=== PATIENT | female | born 1975 | race Hispanic/Latino ===

== ENCOUNTER 2018-05-17 13:49 | Emergency (ER) | payer SELFPAY ==
--- NOTE | 2018-05-17 14:44 | RAD REPORT ---
EXAM DESCRIPTION: CT - Head Brain Wo Cont - 05/17/2018 2:31 pm CLINICAL HISTORY: HEADACHE COMPARISON: No comparisons TECHNIQUE: All CT scans are performed using dose optimization technique as appropriate and may inclu de automated exposure control or mA/KV adjustment according to patient size. FINDINGS: No intracranial hemorrhage, hydrocephalus or extra-axial fluid collection.No areas of brai n edema or evidence of midline shift. The paranasal sinuses and mastoids are clear. The calvarium is intact. IMPRESSION: No acute intracranial abnormality.
[2018-05-17] MEDS ORDERED: METOCLOPRAMIDE 10 MG/2mL INJ ONE (15:58)
[2018-05-17] MEDS ORDERED: NA CHLORIDE 0.9% 1,000 ML ONE (15:59)
[2018-05-17] MEDS ORDERED: KETOROLAC 30 MG/ML INJ ONE (15:59)
--- NOTE | 2018-05-17 17:06 | ER ---
Nurse's Notes [facility] Name: Chio Still Age: 42 yrs Sex: Female : 1975 Arrival Date: 05/17/2018 Time: 13:53 Bed 15 Private MD: None, None Diagnosis: Headache Presentation: 05/17 14:16 Presenting complaint: Patient states: headache that began yesterday. Pt denies nausea aa5 and vomiting, reports dizziness. Pt also c/o swelling to right lower eyelid that began today. Transition of care: patient was not received from another setting of care. Onset of symptoms was May 2018. Risk Assessment: Do you want to hurt yourself or someone else? Patient reports no desire to harm self or others. Initial Sepsis Screen: Does the patient meet any 2 criteria? No. Patient's initial sepsis screen is negative. Does the patient have a suspected source of infection? No. Patient's initial sepsis screen is negative. Care prior to arrival: None. 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 - Social history:: Smoking status: Patient/guardian denies using tobacco. - Ebola Screening: : No symptoms or risks identified at this time. - Family history:: not pertinent. - Hospitalizations: : No recent hospitalization is reported. Screenin:05 Abuse screen: Denies threats or abuse. Denies injuries from another. Nutritional sv screening: No deficits noted. Tuberculosis screening: No symptoms or risk factors identified. Fall Risk None identified. Assessment: 16:05 General: Appears in no apparent distress. uncomfortable, well developed, Behavior is sv calm, cooperative, appropriate for age. Pain: Complains of pain in occipital area and base of the skull Pain currently is 6 out of 10 on a pain scale. Is continuous. Neuro: Level of Consciousness is awake, alert, obeys commands, Oriented to person, place, time, situation, Moves all extremities. Full function Gait is steady, Speech is normal, Reports headache occipital area. Respiratory: Respiratory effort is even, unlabored, Respiratory pattern is regular, symmetrical. Derm: Skin is pink, warm \T\ dry. 17:28 Reassessment: Patient appears in no apparent distress at this time. Patient and/or sv family updated on plan of care and expected duration. Pain level reassessed. Patient is alert, oriented x 3, equal unlabored respirations, skin warm/dry/pink. Patient denies pain at this time. Patient states feeling better. Patient states symptoms have improved. Vital Signs: 14:18 BP 124 / 89; Pulse 75; Resp 16 S; Temp 98.4(TE); Pulse Ox 100% on R/A; Weight 77.11 kg aa5 (R); Height 5 ft. 2 in. (157.48 cm) (R); Pain 6/10; 16:15 BP 124 / 87; Pulse 82; Resp 16; Pulse Ox 99% ; Pain 0/10; sv 14:18 Body Mass Index 31.09 (77.11 kg, 157.48 cm) aa5 Larisa Coma Score: 17:03 Eye Response: spontaneous(4). Verbal Response: oriented(5). Motor Response: obeys rn commands(6). Total: 15. ED Course: 13:53 Patient arrived in ED. sb2 13:53 None, None is Private Physician. sb2 14:17 Triage completed. aa5 14:17 Arm band placed on. aa5 14:31 CT Head Brain wo Cont In Process Unspecified. EDMS 15:29 Argentina Chou, DHARMESH is Primary Nurse. sv 15:38 Dayton Nogueira MD is Attending Physician. rn 16:05 Patient has correct armband on for positive identification. Bed in low position. Pulse sv ox on. NIBP on. Door closed. Lights dimmed. Warm blanket given. Head of bed elevated. 16:05 Inserted saline lock: 20 gauge in right antecubital area, using aseptic technique. sv Flushed right antecubital with 5 ml normal saline. 17:29 No provider procedures requiring assistance completed. IV discontinued, intact, sv bleeding controlled, No redness/swelling at site. Pressure dressing applied. Administered Medications: 16:05 Drug: NS 0.9% 1000 ml Route: IV; Rate: 1000 ml; Site: right antecubital; sv 17:25 Follow up: Response: No adverse reaction; IV Status: Completed infusion; IV Intake: sv 800ml 16:05 Drug: TORadol 30 mg Route: IVP; Site: right antecubital; sv 16:30 Follow up: Response: No adverse reaction sv 16:07 Drug: Reglan 10 mg Route: IVP; Site: right antecubital; sv 16:30 Follow up: Response: No adverse reaction sv Intake: 17:25 IV: 800ml; Total: 800ml. sv Outcome: 17:05 Discharge ordered by . rn 17:29 Discharged to home ambulatory, with family. sv 17:29 Condition: stable 17:29 Discharge instructions given to patient, Instructed on discharge instructions, follow up and referral plans. Demonstrated understanding of instructions, follow-up care. 17:29 Patient left the ED. sv Signatures: Dispatcher [employer] Argentina Cm RN RN sv Dayton Nogueira MD MD rn Calderon, Audri, RN RN aa5 Joanne Ramirez2 Corrections: (The following items were deleted from the chart) 18:08 16:15 BP 124 / 87; Pulse 82bpm; Resp 16bpm; Pulse Ox 99%; sv sv
--- NOTE | 2018-05-17 17:06 | EDPHYS ---
Physician Documentation [facility] Name: Chio Still Age: 42 yrs Sex: Female : 1975 Arrival Date: 05/17/2018 Time: 13:53 Bed 15 Private MD: None, None ED Physician Dayton Nogueira HPI: 05/17 16:20 This 42 yrs old Female presents to ER via Ambulatory with complaints of rn Headache. 16:20 The patient complains of pain to the right frontal area and right temporal area. The rn patient describes the headache as aching. 16:22 Onset: The symptoms/episode began/occurred yesterday. Severity of symptoms: At its rn worst the pain was moderate, in the emergency department the pain is unchanged. The patient has not experienced similar symptoms in the past. Reports right sided headache, began yesterday, no fever, no trauma, no vomiting, no vision changes, reports has high blood pressure and her pressure has been high. . 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 - Social history:: Smoking status: Patient/guardian denies using tobacco. - Ebola Screening: : No symptoms or risks identified at this time. - Family history:: not pertinent. - Hospitalizations: : No recent hospitalization is reported. ROS: 16:22 Constitutional: Negative for fever, chills, and weight loss, Eyes: Negative for injury, rn pain, redness, and discharge, Neck: Negative for injury, pain, and swelling, Cardiovascular: Negative for chest pain, palpitations, and edema, Respiratory: Negative for shortness of breath, cough, wheezing, and pleuritic chest pain, Abdomen/GI: Negative for abdominal pain, nausea, vomiting, diarrhea, and constipation, MS/Extremity: Negative for injury and deformity, Skin: Negative for injury, rash, and discoloration, Neuro: Negative for weakness, numbness, tingling, and seizure. Exam: 16:22 Constitutional: This is a well developed, well nourished patient who is awake, alert, rn and in no acute distress. Head/Face: Normocephalic, atraumatic. Eyes: Pupils equal round and reactive to light, extra-ocular motions intact. Lids and lashes normal. Conjunctiva and sclera are non-icteric and not injected. Cornea within normal limits. Periorbital areas with no redness, or edema. ENT: Nares patent. No nasal discharge, no septal abnormalities noted. Oropharynx with no redness, swelling, or masses, exudates, or evidence of obstruction, uvula midline. Mucous membranes moist. Neck: Trachea midline, no thyromegaly or masses palpated, and no cervical lymphadenopathy. Supple, full range of motion without nuchal rigidity, or vertebral point tenderness. No Meningismus. Skin: Warm, dry with normal turgor. Normal color with no rashes, no lesions, and no evidence of cellulitis. Neuro: Awake and alert, GCS 15, oriented to person, place, time, and situation. Cranial nerves II-XII grossly intact. Motor strength 5/5 in all extremities. Sensory grossly intact. Cerebellar exam normal. Normal gait. Vital Signs: 14:18 BP 124 / 89; Pulse 75; Resp 16 S; Temp 98.4(TE); Pulse Ox 100% on R/A; Weight 77.11 kg aa5 (R); Height 5 ft. 2 in. (157.48 cm) (R); Pain 6/10; 16:15 BP 124 / 87; Pulse 82; Resp 16; Pulse Ox 99% ; Pain 0/10; sv 14:18 Body Mass Index 31.09 (77.11 kg, 157.48 cm) aa5 Perryman Coma Score: 17:03 Eye Response: spontaneous(4). Verbal Response: oriented(5). Motor Response: obeys rn commands(6). Total: 15. MDM: 15:39 Patient medically screened. rn 17:03 Differential diagnosis: hypertensive headache, migraine, tension headache, vasomotor rn headache. Data reviewed: vital signs, nurses notes, radiologic studies, CT scan, and as a result, I will discharge patient. Counseling: I had a detailed discussion with the patient and/or guardian regarding: the historical points, exam findings, and any diagnostic results supporting the discharge/admit diagnosis, radiology results, the need for outpatient follow up, to return to the emergency department if symptoms worsen or persist or if there are any questions or concerns that arise at home. Special discussion: I discussed with the patient/guardian in detail that at this point there is no indication for admission to the hospital. It is understood, however, that if the symptoms persist or worsen the patient needs to return immediately for re-evaluation. ED course: Patient back to baseline, smiling, negative CT head. . 05/17 14:19 Order name: CT Head Brain wo Cont; Complete Time: 15:39 aa5 05/17 15:44 Order name: IV Start; Complete Time: 16:12 rn Administered Medications: 16:05 Drug: NS 0.9% 1000 ml Route: IV; Rate: 1000 ml; Site: right antecubital; sv 17:25 Follow up: Response: No adverse reaction; IV Status: Completed infusion; IV Intake: sv 800ml 16:05 Drug: TORadol 30 mg Route: IVP; Site: right antecubital; sv 16:30 Follow up: Response: No adverse reaction sv 16:07 Drug: Reglan 10 mg Route: IVP; Site: right antecubital; sv 16:30 Follow up: Response: No adverse reaction sv Disposition: 05/17/18 17:05 Discharged to Home. Impression: Headache. - Condition is Stable. - Discharge Instructions: General Headache Without Cause, Migraine Headache. - Family Work Release, Medication Reconciliation Form, Thank You Letter, Antibiotic Education, Prescription Opioid Use form. - Follow up: Private Physician; When: As needed; Reason: Recheck today's complaints, Re-evaluation by your physician. - Problem is new. - Symptoms have improved. Signatures: Dispatcher [employer] EDArgentina Riojas RN RN sv Dayton Nogueira MD MD rn Calderon, Audri, RN RN aa5 Corrections: (The following items were deleted from the chart) 17:29 17:05 05/17/2018 17:05 Discharged to Home. Impression: Headache. Condition is Stable. sv Forms are Medication Reconciliation Form, Thank You Letter, Antibiotic Education, Prescription Opioid Use. Follow up: Private Physician; When: As needed; Reason: Recheck today's complaints, Re-evaluation by your physician. Problem is new. Symptoms have improved. rn
[2018-05-17 23:08] VITALS: TEMP 98.4
[2018-05-17 23:09] VITALS: BP 124/87; O2SAT 99
== END 2018-05-17 17:29 | disposition home or self-care (01) ==
LOC: ER 13:49
DX: R51 Headache (principal); I10 Essential (primary) hypertension; Z79.899 Other long term (current) drug therapy
CPT/HCPCS: 70450; 96361; 96374; 96375; 99284; J2765; J7030

== ENCOUNTER 2018-08-13 13:05 | Emergency (ER) | payer SELFPAY ==
--- OUTSIDE RECORDS SUMMARY | 2018-08-13 13:08 | XMS REPORT ---
:1975 [facility] Address [address] [place] [address] Care Team Providers Name Role Phone Unavailable Unavailable Unavailable Problems This patient has no known problems. Allergies, Adverse Reactions, Alerts This patient has no known allergies or adverse reactions. Medications This patient has no known medications. Results Test Description Test Time Test Comments Text Results Atomic Results Result Comments SCR MAMM BILATERAL CAD 2018-06-10 15:53:27 - SCR MAMM BILATERAL CAD DIGITAL DIGITALBILATERAL DIGITAL SCREENING MAMMOGRAM WITH CAD: 06/04/2018CLINICAL: Asymptomatic. Current mammographic images were evaluated by either a [employer] M-Vu or a [employer] ImageChecker CAD (computer aided detection system). No prior exams were available for comparison. The tissue of both breasts is heterogeneously dense. This may lower the sensitivity of mammography. No suspicious mass, architectural distortion, malignant type calcification, or lymph node abnormality detected. IMPRESSION: NEGATIVEThere is no mammographic evidence of malignancy. Resume annual screening mammography in one year. Meliton monzon/ymra:06/10/2018 15:53:27 Digital Strategist Senior Manager: Le Salgado MM, [facility] Mammographyletter sent: BIRADS 1-2 Normal Mammogram BI-RADS: 1 Negative
[2018-08-13] MEDS ORDERED: MECLIZINE HCL 12.5 MG TAB ONE (14:17)
[2018-08-13 14:24] LABS: Absolute Lymphocytes (CBC) 3.2 K/uL (0.7-4.9); Absolute Monocytes 0.6 K/uL (0.1-1.3); Basophils % 0.5 % (0-1.3); Eosinophils % 1.6 % (0-4.4); Hematocrit 39.2 % (36.0-45.0); Lymphocytes % 29.3 % (15.3-44.8); MPV 8.7 fL (7.6-11.3); Monocytes % 5.3 % (3.3-12.3); RBC Red Blood Cell Count 4.58 M/uL (3.86-4.86)
[2018-08-13 14:25] LABS: Protime INR 1.07
[2018-08-13 14:44] LABS: ALT/SGPT 18 U/L (12-78); AST/SGOT 13 U/L (15-37); Albumin 3.7 g/dL (3.4-5.0); Alkaline Phosphatase 80 U/L (45-117); BUN Blood Urea Nitrogen 14 mg/dL (7-18); Bicarbonate 27 mmol/L (21-32); Bilirubin Direct < 0.1 mg/dL (0-0.2); Bilirubin Total 0.3 mg/dL (0.2-1.0); Glucose Level 95 mg/dL (74-106); NT PRO-BNP 13 pg/mL (<125); Potassium 3.7 mmol/L (3.5-5.1); Protein, Total 7.5 g/dL (6.4-8.2); Sodium Level 139 mmol/L (136-145); Troponin (Emerg Dept Use Only) < 0.02 ng/mL (0.0-0.045)
--- NOTE | 2018-08-13 14:45 | RAD REPORT ---
EXAM DESCRIPTION: CT - Head Brain Wo Cont - 08/13/2018 2:26 pm CLINICAL HISTORY: Dizziness and visual disturbance COMPARISON: May 2018 TECHNIQUE: Computed axial tomography of the head was obtained. IV contrast was not requested. All CT scans are performed using dose optimization technique as appropriate and may include automated exposure control or mA/KV adjustment according to patient size. FINDINGS: An intracranial bleed is not seen . The ventricles are normal in caliber. No extra-axial fluid collection is noted. Fluid within the sinuses/ mastoids is not seen. IMPRESSION: No acute intracranial abnormality is seen. If patient's symptoms persist MRI of the bra in would be recommended.
[2018-08-13] MEDS ORDERED: NA CHLORIDE 0.9% 500 ML ONE (15:13)
[2018-08-13] MEDS ORDERED: DIPHENHYDRAMINE 50 MG/ML VIAL ONE (15:13)
[2018-08-13] MEDS ORDERED: METOCLOPRAMIDE 10 MG/2mL INJ ONE (15:13)
[2018-08-13] MEDS ORDERED: DIAZEPAM 10 MG/2 ML INJ SYRINGE ONE (15:14)
--- NOTE | 2018-08-13 15:27 | RAD REPORT ---
EXAM DESCRIPTION: CT - Head angio - 08/13/2018 3:12 pm CLINICAL HISTORY: Hypertension, dizziness, stroke-like symptoms TECHNIQUE: During dynamic enhancement using nonionic IV contrast, axial 1 millimeter thick images of the head were obtained. Sagittal and axial reconstruction images were generated and reviewed. Guillen l and sagittal reformations imaging performed using maximum intensity projection protocol. All CT scans are performed using dose optimization technique as appropriate and may include automated exposure control or mA/KV adjustment according to patient size. FINDINGS: No aneurysm or vascular malformation identified.Major venous sinuses are patent. No stenosis, named branch occlusion, vasculitis or other significant vascular finding identifiable. IMPRESSION: Negative CT angio head examination.
--- NOTE | 2018-08-13 15:29 | RAD REPORT ---
EXAM DESCRIPTION: CT - Neck Angio - 08/13/2018 3:13 pm CLINICAL HISTORY: Hypertension, dizziness, stroke-like symptoms TECHNIQUE: During dynamic enhancement using nonionic IV contrast, axial 2 mm thick images of the nec k were obtained. Sagittal and axial reconstruction images were generated and reviewed. Sagittal and c oronal reformatted images were generated using maximum intensity projection protocol. All CT scans are performed using dose optimization technique as appropriate and may include automated exposure control or mA/KV adjustment according to patient size. COMPARISON: CT head same date FINDINGS: No aneurysm or vascular malformation identified. No carotid or vertebral dissection. No aortic arch or great vessel origin abnormality seen. Vertebral artery origins unremarkable as well . No stenosis, vasculitis or other significant carotid artery finding. No focal abnormality of either vertebral artery. Basilar artery is normal. IMPRESSION: Negative CT angio neck examination.
--- NOTE | 2018-08-13 16:33 | EDPHYS ---
Physician Documentation [facility] Name: Chio Still Age: 43 yrs Sex: Female : 1975 Arrival Date: 08/13/2018 Time: 13:06 Bed 18 Private MD: Unknown, Unknown ED Physician Heber Melissa HPI: 08/13 14:08 This 43 yrs old Female presents to ER via Ambulatory with complaints of jr8 Dizziness, Blurred Vision. 14:08 The patient presents with dizziness, feeling off balance. Onset: The symptoms/episode jr8 began/occurred gradually, 4 day(s) ago. Context: occurred at home, occurred while the patient was at rest, just prior to the episode the patient experienced no apparent symptoms. Modifying factors: The symptoms are alleviated by nothing, the symptoms are aggravated by standing up, changing position. Associated signs and symptoms: Pertinent positives: blurred vision, headache, nausea. Severity of symptoms: At their worst the symptoms were moderate in the emergency department the symptoms are unchanged. Patient's baseline: Neuro: alert and fully oriented, Motor: no deficits, Ambulation: walks without assistance, Speech: normal. The patient has not experienced similar symptoms in the past. The patient has not recently seen a physician. 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 - Social history:: Smoking status: Patient/guardian denies using tobacco, Patient/guardian denies using alcohol. - Ebola Screening: : Patient negative for fever greater than or equal to 101.5 degrees Fahrenheit, and additional compatible Ebola Virus Disease symptoms Patient denies exposure to infectious person Patient denies travel to an Ebola-affected area in the 21 days before illness onset. ROS: 14:11 Eyes: Negative for injury, pain, redness, and discharge, ENT: Negative for injury, jr8 pain, and discharge, Neck: Negative for injury, pain, and swelling, Cardiovascular: Negative for chest pain, palpitations, and edema, Respiratory: Negative for shortness of breath, cough, wheezing, and pleuritic chest pain, Abdomen/GI: Negative for abdominal pain, nausea, vomiting, diarrhea, and constipation, Back: Negative for injury and pain, MS/Extremity: Negative for injury and deformity, Skin: Negative for injury, rash, and discoloration. 14:11 Neuro: Positive for dizziness, gait disturbance, headache, visual changes. Exam: 14:11 Eyes: Pupils equal round and reactive to light, extra-ocular motions intact. Lids and jr8 lashes normal. Conjunctiva and sclera are non-icteric and not injected. Cornea within normal limits. Periorbital areas with no swelling, redness, or edema. ENT: Nares patent. No nasal discharge, no septal abnormalities noted. Tympanic membranes are normal and external auditory canals are clear. Oropharynx with no redness, swelling, or masses, exudates, or evidence of obstruction, uvula midline. Mucous membranes moist. Neck: Trachea midline, no thyromegaly or masses palpated, and no cervical lymphadenopathy. Supple, full range of motion without nuchal rigidity, or vertebral point tenderness. No Meningismus. Cardiovascular: Regular rate and rhythm with a normal S1 and S2. No gallops, murmurs, or rubs. Normal PMI, no JVD. No pulse deficits. Respiratory: Lungs have equal breath sounds bilaterally, clear to auscultation and percussion. No rales, rhonchi or wheezes noted. No increased work of breathing, no retractions or nasal flaring. Abdomen/GI: Soft, non-tender, with normal bowel sounds. No distension or tympany. No guarding or rebound. No evidence of tenderness throughout. Back: No spinal tenderness. No costovertebral tenderness. Full range of motion. Skin: Warm, dry with normal turgor. Normal color with no rashes, no lesions, and no evidence of cellulitis. MS/ Extremity: Pulses equal, no cyanosis. Neurovascular intact. Full, normal range of motion. 14:11 ECG was reviewed by the Attending Physician. 14:11 Neuro: Orientation: to person, place, time \T\ situation. Mentation: is normal, Memory: is normal, immediate memory is intact, recent memory is intact, remote memory is intact, Cranial nerves: CN I not tested, CN II- XII are normal as tested, visual trujillo are intact. extraocular movements are intact, Facial palsy and sensory deficits are absent. no gross hearing deficit,. Nystagmus is absent. Speech is clear and appropriate. Tongue strength is normal, Cerebellar function: Romberg testing is abnormal, drifts to right, dysmetria is noted on both sides, heel to daley testing is normal, Motor: moves all fours, strength is 5/5 in all extremities, Sensation: no obvious gross deficits, Gait: is unsteady, seizure activity, is not displayed by the patient, Abnormal movements: there are no abnormal movements, bilateral diplopia . Vital Signs: 13:22 BP 131 / 93; Pulse 81; Resp 18; Temp 98.4(O); Pulse Ox 100% on R/A; Weight 73.48 kg; hj Height 5 ft. 1 in. (154.94 cm); Pain 6/10; 14:30 BP 138 / 95; Pulse 70; Resp 18; Pulse Ox 99% on R/A; Pain 0/10; em 16:40 BP 128 / 82; Pulse 69; Resp 16; Pulse Ox 99% on R/A; Pain 0/10; em 13:22 Body Mass Index 30.61 (73.48 kg, 154.94 cm) hj MDM: 13:55 Patient medically screened. jr8 16:31 Data reviewed: vital signs, nurses notes, lab test result(s), EKG, radiologic studies, [facility] CT scan, plain films, and as a result, I will discharge patient. Data interpreted: Pulse oximetry: on room air is 100 %. Interpretation: normal. Counseling: I had a detailed discussion with the patient and/or guardian regarding: the historical points, exam findings, and any diagnostic results supporting the discharge/admit diagnosis, lab results, radiology results, the need for outpatient follow up, a neurologist, to return to the emergency department if symptoms worsen or persist or if there are any questions or concerns that arise at home. Response to treatment: the patient's symptoms have markedly improved after treatment. 08/13 13:41 Order name: Urine Dipstick--Ancillary (enter results) eb 08/13 13:41 Order name: Urine --Ancillary (enter results) 08/13 13:57 Order name: Basic Metabolic Panel; Complete Time: 14:49 jr8 08/13 13:57 Order name: CBC with Diff; Complete Time: 14:40 jr8 04/05 13:57 Order name: LFT's; Complete Time: 14:49 jr8 08/13 13:57 Order name: Magnesium; Complete Time: 14:49 08/13 13:57 Order name: NT PRO-BNP; Complete Time: 14:49 08/13 13:57 Order name: PT-INR; Complete Time: 14:40 jr8 08/13 13:57 Order name: Troponin (emerg Dept Use Only); Complete Time: 14:49 jr8 08/13 13:57 Order name: CT Head Brain wo Cont; Complete Time: 14:49 jr8 08/13 14:55 Order name: CT Head Angio; Complete Time: 15:37 jr8 08/13 15:02 Order name: Neck Angio; Complete Time: 15:37 EDMS 08/13 13:57 Order name: EKG; Complete Time: 13:58 8 08/13 13:57 Order name: Cardiac monitoring; Complete Time: 14:14 08/13 13:57 Order name: EKG - Nurse/Tech; Complete Time: 14:14 08/13 13:57 Order name: IV Saline Lock; Complete Time: 14:14 jr08/13 13:57 Order name: Labs collected and sent; Complete Time: 14:14 08/13 13:57 Order name: O2 Per Protocol; Complete Time: 14:14 08/13 13:57 Order name: O2 Sat Monitoring; Complete Time: 14:14 jr EC:11 Rate is 67 beats/min. Rhythm is regular, Normal Sinus Rhythm. QRS [place] is Normal. MS jr8 interval is normal at 138 msec. QRS interval is normal at 82 msec. QT interval is normal at 424 msec. No Q waves. T waves are Normal. No ST changes noted. Clinical impression: Normal ECG. Interpreted by me. Reviewed by me. Administered Medications: 14:14 Drug: Meclizine 25 mg Route: PO; em 15:13 Follow up: Response: No adverse reaction em 15:27 Drug: Valium 2 mg Route: IVP; Site: right antecubital; hb 16:42 Follow up: Response: No adverse reaction; Pain is decreased em 15:27 Drug: Reglan 10 mg Route: IVP; Site: right antecubital; hb 16:42 Follow up: Response: No adverse reaction; Pain is decreased em 15:27 Drug: Benadryl 25 mg Route: IVP; Site: right antecubital; hb 16:42 Follow up: Response: No adverse reaction; Pain is decreased em 15:28 Drug: NS 0.9% 500 ml Route: IV; Rate: bolus; Site: right antecubital; hb 16:30 Follow up: IV Status: Completed infusion; IV Intake: 500ml em Disposition: 08/13/18 16:32 Discharged to Home. Impression: Migraine - Complex. - Condition is Stable. - Discharge Instructions: Migraine Headache. - Prescriptions for Fiorinal 50- 325-40 mg Oral Capsule - take 2 capsule by ORAL route every 8 hours As needed - not to exceed 6 capsules per day; 20 capsule. - Medication Reconciliation Form, Thank You Letter, Antibiotic Education, Prescription Opioid Use form. - Follow up: Misael Felipe MD; When: 2 - 3 days; Reason: Recheck today's complaints, Continuance of care, Re-evaluation by your physician. - Problem is new. - Symptoms have improved. Addendum: 08/16/2018 07:16 Co-signature as Attending Physician, Heber Melissa MD I agree with the assessment and k dr plan of care. Signatures: Dispatcher [employer] EDTN Heber Melissa MD MD [facility] Cristhian Chavira, PRIVATE INVESTIGATOR SURVEILLANCE PRIVATE INVESTIGATOR SURVEILLANCE Yoel Gonzáles PA PA jr8 Oziel Mane RN RN Marisabel Smith RN RN Corrections: (The following items were deleted from the chart) 08/13 14:22 14:11 Eyes: Pupils equal round and reactive to light, extra-ocular motions intact. Lids jr8 and lashes normal. Conjunctiva and sclera are non-icteric and not injected. Cornea within normal limits. Periorbital areas with no swelling, redness, or edema. ENT: Nares patent. No nasal discharge, no septal abnormalities noted. Tympanic membranes are normal and external auditory canals are clear. Oropharynx with no redness, swelling, or masses, exudates, or evidence of obstruction, uvula midline. Mucous membranes moist. Neck: Trachea midline, no thyromegaly or masses palpated, and no cervical lymphadenopathy. Supple, full range of motion without nuchal rigidity, or vertebral point tenderness. No Meningismus. Cardiovascular: Regular rate and rhythm with a normal S1 and S2. No gallops, murmurs, or rubs. Normal PMI, no JVD. No pulse deficits. Respiratory: Lungs have equal breath sounds bilaterally, clear to auscultation and percussion. No rales, rhonchi or wheezes noted. No increased work of breathing, no retractions or nasal flaring. Abdomen/GI: Soft, non-tender, with normal bowel sounds. No distension or tympany. No guarding or rebound. No evidence of tenderness throughout. Back: No spinal tenderness. No costovertebral tenderness. Full range of motion. Skin: Warm, dry with normal turgor. Normal color with no rashes, no lesions, and no evidence of cellulitis. MS/ Extremity: Pulses equal, no cyanosis. Neurovascular intact. Full, normal range of motion. jr8 14:22 14:11 Neuro: Orientation: to person, place, time \T\ situation. Mentation: is normal, jr8 Memory: is normal, immediate memory is intact, recent memory is intact, remote memory is intact, Cranial nerves: CN I not tested, CN II- XII are normal as tested, visual trujillo are intact. extraocular movements are intact, Facial palsy and sensory deficits are absent. no gross hearing deficit,. Nystagmus is absent. Speech is clear and appropriate. Tongue strength is normal, Cerebellar function: Romberg testing is abnormal, drifts to right, dysmetria is noted on both sides, heel to daley testing is normal, Motor: moves all fours, strength is 5/5 in all extremities, Sensation: no obvious gross deficits, Gait: is unsteady, seizure activity, is not displayed by the patient, Abnormal movements: there are no abnormal movements, jr8 16:59 16:32 08/13/2018 16:32 Discharged to Home. Impression: Migraine - Complex. Condition is em Stable. Forms are Medication Reconciliation Form, Thank You Letter, Antibiotic Education, Prescription Opioid Use. Follow up: Misael Felipe; When: 2 - 3 days; Reason: Recheck today's complaints, Continuance of care, Re-evaluation by your physician. Problem is new. Symptoms have improved. jr8
--- NOTE | 2018-08-13 16:33 | ER ---
Nurse's Notes [facility] Name: Chio Still Age: 43 yrs Sex: Female : 1975 Arrival Date: 08/13/2018 Time: 13:06 Bed 18 Private MD: Unknown, Unknown Diagnosis: Migraine-Complex Presentation: 08/13 13:19 Presenting complaint: Patient states: for the last 4 days i have high blood pressure; i hj got dizzy and light headed and my vision is blurry; and for days, my BP is high, last night BP- 168/129; i got BP meds; this AM; BP is 130/99; reports nausea; denies weakness, numbness in all extremities;. Transition of care: patient was not received from another setting of care. Onset of symptoms was August 13, 2018. Risk Assessment: Do you want to hurt yourself or someone else? Patient reports no desire to harm self or others. Initial Sepsis Screen: Does the patient meet any 2 criteria? No. Patient's initial sepsis screen is negative. Does the patient have a suspected source of infection? No. Patient's initial sepsis screen is negative. Care prior to arrival: None. 13:19 Method Of Arrival: Ambulatory 13:19 Acuity: INDY 3 hj Triage Assessment: 13:22 General: Appears in no apparent distress. uncomfortable, Behavior is calm, cooperative, hj appropriate for age. Pain: Complains of pain in head Pain currently is 6 out of 10 on a pain scale. 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 - Social history:: Smoking status: Patient/guardian denies using tobacco, Patient/guardian denies using alcohol. - Ebola Screening: : Patient negative for fever greater than or equal to 101.5 degrees Fahrenheit, and additional compatible Ebola Virus Disease symptoms Patient denies exposure to infectious person Patient denies travel to an Ebola-affected area in the 21 days before illness onset. Screenin:22 Abuse screen: Denies threats or abuse. Denies injuries from another. Nutritional hj screening: No deficits noted. Tuberculosis screening: No symptoms or risk factors identified. Fall Risk None identified. Assessment: 13:45 General: Appears in no apparent distress. uncomfortable, Behavior is calm, cooperative. em Pain: Complains of pain in occipital area Pain currently is 6 out of 10 on a pain scale. Pain began 2-3 days ago. Neuro: Level of Consciousness is awake, alert, obeys commands, Oriented to person, place, time, situation, Global Ceo are equal bilaterally Moves all extremities. Gait is steady, Speech is normal, Facial symmetry appears normal, Intact Reports blurred vision dizziness, headache occipital area. Cardiovascular: Heart tones S1 S2 present Capillary refill < 3 seconds Patient's skin is warm and dry. Respiratory: Airway is patent Respiratory effort is even, unlabored, Respiratory pattern is regular, symmetrical. GI: Abdomen is flat, Reports nausea, Patient currently denies vomiting. : Urine is clear. EENT: No signs and/or symptoms were reported regarding the EENT system. Derm: Skin is intact, is healthy with good turgor, Skin is pink, warm \T\ dry. Musculoskeletal: Capillary refill < 3 seconds, Range of motion: intact in all extremities. 13:50 Reassessment: I agree with previous assessment. 14:54 Reassessment: Patient appears in no apparent distress at this time. Patient and/or em family updated on plan of care and expected duration. Pain level reassessed. Patient is alert, oriented x 3, equal unlabored respirations, skin warm/dry/pink. Patient states symptoms have not improved. 16:21 Reassessment: Patient appears in no apparent distress at this time. Patient and/or em family updated on plan of care and expected duration. Pain level reassessed. Patient is alert, oriented x 3, equal unlabored respirations, skin warm/dry/pink. Patient states feeling better. Patient states symptoms have improved. Vital Signs: 13:22 BP 131 / 93; Pulse 81; Resp 18; Temp 98.4(O); Pulse Ox 100% on R/A; Weight 73.48 kg; hj Height 5 ft. 1 in. (154.94 cm); Pain 6/10; 14:30 BP 138 / 95; Pulse 70; Resp 18; Pulse Ox 99% on R/A; Pain 0/10; em 16:40 BP 128 / 82; Pulse 69; Resp 16; Pulse Ox 99% on R/A; Pain 0/10; em 13:22 Body Mass Index 30.61 (73.48 kg, 154.94 cm) hj ED Course: 13:06 Patient arrived in ED. ag5 13:08 Unknown, Unknown is Private Physician. ag5 13:21 Triage completed. hj 13:22 Arm band placed on right wrist. hj 13:23 Patient has correct armband on for positive identification. Placed in gown. Bed in low hj position. Call light in reach. Side rails up X 1. 13:35 [facility] jr8 13:35 Heber Melissa MD is Attending Physician. jr8 13:46 Cristhian Chavira LVN is Primary Nurse. em 14:16 Initial lab(s) drawn, by dc, sent to lab. Inserted saline lock: 20 gauge in right lt1 antecubital area, using aseptic technique. 14:23 CT completed. Patient tolerated procedure well. Patient moved to CT via wheelchair. Patient moved back from CT. 14:28 CT Head Brain wo Cont In Process Unspecified. EDMS 14:46 EKG done, by vibration technician. reviewed by Yoel HARTLEY. 3 15:[address] via wheelchair. 15:13 CT Head Angio In Process Unspecified. EDMS 15:13 Neck Angio In Process Unspecified. EDMS 16:32 Misael Felipe MD is Referral Physician. jr8 16:58 No provider procedures requiring assistance completed. IV discontinued, intact, em bleeding controlled, No redness/swelling at site. Pressure dressing applied. Administered Medications: 14:14 Drug: Meclizine 25 mg Route: PO; em 15:13 Follow up: Response: No adverse reaction em 15:27 Drug: Valium 2 mg Route: IVP; Site: right antecubital; hb 16:42 Follow up: Response: No adverse reaction; Pain is decreased em 15:27 Drug: Reglan 10 mg Route: IVP; Site: right antecubital; hb 16:42 Follow up: Response: No adverse reaction; Pain is decreased em 15:27 Drug: Benadryl 25 mg Route: IVP; Site: right antecubital; hb 16:42 Follow up: Response: No adverse reaction; Pain is decreased em 15:28 Drug: NS 0.9% 500 ml Route: IV; Rate: bolus; Site: right antecubital; hb 16:30 Follow up: IV Status: Completed infusion; IV Intake: 500ml em Intake: 16:30 IV: 500ml; Total: 500ml. em Outcome: 16:32 Discharge ordered by MD. shipley 16:58 Discharged to home ambulatory. em 16:58 Condition: good 16:58 Discharge instructions given to patient, Instructed on discharge instructions, follow up and referral plans. medication usage, Demonstrated understanding of instructions, follow-up care, medications, Prescriptions given X 1. 16:59 Patient left the ED. em Signatures: Dispatcher [employer] EDFaby Linder Edgar, INFORMATION SERVICES ASSISTANT INFORMATION SERVICES ASSISTANT em Yoel Gonzáles PA PA jr8 Joaquin, Henry, RN RN hj Baxter, Heather, RN RN Jolynn Fairchild 3 Amberly Ford 5 Lizet Jordan lt1 Corrections: (The following items were deleted from the chart) 13:25 13:22 Pulse 81bpm; Resp 18bpm; Pulse Ox 100% RA; Temp 98.4F Oral; 73.48 kg; Height 5 hj ft. 1 in.; BMI: 30.6; Pain 6/10; hj
[2018-08-13 17:09] VITALS: TEMP 98.4
[2018-08-13 17:12] VITALS: O2SAT 99
[2018-08-13 17:13] VITALS: BP 128/82
[2018-08-13 19:44] LABS: Urine Blood TRACE (NEG); Urine Glucose NEGATIVE (NEG); Urine Protein NEGATIVE (NEG); Urine Specific Gravity 1.015 (1.005-1.030)
== END 2018-08-13 16:59 | disposition home or self-care (01) ==
LOC: ER 13:05
DX: G43.909 Migraine, unspecified, not intractable, without status migrainosus (principal); I10 Essential (primary) hypertension
CPT/HCPCS: 36415; 70450; 70496; 70498; 80048; 80076; 81003; 81025; 83735; 83880; 84484; 85025; 85610; 93005; 96361; 96374; 96375; 99284; J2765; J3360; Q9967

== ENCOUNTER 2019-10-23 09:20 | Emergency (ER) | payer SELFPAY ==
--- OUTSIDE RECORDS SUMMARY | 2019-10-23 09:22 | XMS REPORT | Continuity of Care Document ---
:1975 Author Organization [facility] t Address [address] [place] [address] Care Team Providers Name Role Phone Unavailable Unavailable Unavailable Problems This patient has no known problems. Allergies, Adverse Reactions, Alerts This patient has no known allergies or adverse reactions. Medications This patient has no known medications. Procedures This patient has no known procedures. Results Test Description Test Time Test Comments Results Result Sour e Comments SCR MAMM 2018-06-10 - SCR MAMM BILATERAL BILATERAL CAD 15:53:27 CAD DIGITALBILATERAL DIGITAL DIGITAL SCREENING MAMMOGRAM WITH CAD: 06/04/2018CLINICAL: Asymptomatic. Current mammographic images were evaluated by either a Feast M-Vu or a The [employer] ImageChecker CAD (computer aided detection system). No prior exams were available for comparison. The tissue of both breasts is heterogeneously dense. This may lower the sensitivity of mammography. No suspicious mass, architectural distortion, malignant type calcification, or lymph node abnormality detected. IMPRESSION: NEGATIVEThere is no mammographic evidence of malignancy. Resume annual screening mammography in one year. Meliton monzon/myra:06/10/2018 15:53:27 Technology Analyst: Le Salgado MM, [facility] Mammographyletter sent: BIRADS 1-2 Normal Mammogram BI-RADS: 1 Negative
[2019-10-23] MEDS ORDERED: MORPHINE 4 MG/ML SYR ONE (10:08)
[2019-10-23] MEDS ORDERED: ONDANSETRON 4 MG/2 ML VIAL ONE (10:08)
[2019-10-23 10:11] LABS: Urine Bacteria <20 /HPF (<20); Urine RBC <5 /HPF (NONE SEEN)
[2019-10-23 10:12] LABS: Absolute Lymphocytes (CBC) 2.7 K/uL (0.7-4.9); Basophils % 0.4 % (0-1.3); Hematocrit 39.6 % (36.0-45.0); Lymphocytes % 30.7 % (15.3-44.8); RBC Red Blood Cell Count 4.61 M/uL (3.86-4.86); Urine Culture Reflex Order NOT NEEDED
[2019-10-23 10:20] LABS: ALT/SGPT 26 U/L (12-78); AST/SGOT 18 U/L (15-37); Albumin 3.7 g/dL (3.4-5.0); Alkaline Phosphatase 82 U/L (45-117); BUN Blood Urea Nitrogen 11 mg/dL (7-18); Bicarbonate 26 mmol/L (21-32); Bilirubin Direct 0.1 mg/dL (0-0.2); Bilirubin Total 0.3 mg/dL (0.2-1.0); Glucose Level 102 mg/dL (74-106); Lipase 115 U/L (73-393); Potassium 3.7 mmol/L (3.5-5.1); Protein, Total 7.7 g/dL (6.4-8.2); Sodium Level 138 mmol/L (136-145)
--- NOTE | 2019-10-23 10:40 | RAD REPORT ---
EXAM DESCRIPTION: CT - Abdomen Pelvis W Contrast - 10/23/2019 10:20 am CLINICAL HISTORY: ABD PAIN, left lower quadrant pain COMPARISON: CT ABD PELVIS W CONTRAST dated 04/18/2015; CT ABD PELVIS W CONTRAST dated 05/18/2013; CT AB D PELVIS W CONTRAST dated 02/09/2008 TECHNIQUE: Biphasic, helical CT imaging of the abdomen and pelvis was performed following 100 ml non -ionic IV contrast. No oral contrast administered. All CT scans are performed using dose optimization technique as appropriate and may include automated exposure control or mA/KV adjustment according to patient size. FINDINGS: No suspicious findings in the lung bases. The liver, spleen, and pancreas show no suspicious findings. Gallbladder is absent. Common bile duct is dilated up to 17 mm and the intrahepatic ducts are more prominent than seen on the 2015 study. The re is no evidence for pancreatic or duodenal mass. Duct stones can be occult. History indicates left lower quadrant pain. This may simply be the reservoir effect that can occur after a cholecystectomy. Symmetric renal function is seen with no hydronephrosis or suspicious renal mass. No pyelonephritis o r acute parenchymal process. No abnormality seen in the contracted urinary bladder. No adrenal abnorm alities. Uterine size is normal. Endometrium is approximately 10-11 mm in thickness. This is not abnormal if t he patient is premenopausal. An 8 millimeter cyst or low-density mass is present at the posterior mar gin of the myometrial endometrial interface. This could be a benign cyst or small hypoechoic fibroid. No right ovary abnormality. An involuting 16 millimeter left ovarian cyst is present. No gastric dilatation or wall thickening. No dilated large or small bowel. Appendix is normal. No div erticulitis seen. No active GI process identified. No free air, free fluid or inflammatory stranding. No hernia, mass or bulky lymphadenopathy. No suspicious bony findings. IMPRESSION: No colitis, diverticulitis or acute GI process identifiable. No active GI process ident ifiable. Patient has an involuting 16 millimeter left ovarian cyst. This could be a possible source of the pat ient's left lower quadrant pain. No significant uterine finding. Endometrial stripe is not outside of normal range. An [address] or low-density mass in the posterior margin of the uterus at the myometrial endometrial interface slightly more prominent. Long-term significance is doubtful. This can be re-evaluated with nonemergen t outpatient endovaginal ultrasound. Extrahepatic biliary tree is dilated to 17 mm. Patient is status post cholecystectomy. This is probab ly the reservoir affect that occurs after cholecystectomy rather than biliary obstruction. This can b e correlated with clinical presentation.
--- NOTE | 2019-10-23 11:10 | ER ---
Nurse's Notes [facility] Name: Chio Still Age: 44 yrs Sex: Female : 1975 Arrival Date: 10/23/2019 Time: 09:23 Bed 6 Private MD: Diagnosis: Unspecified ovarian cysts;Abdominal and pelvic pain Presentation: 10/22 09:38 Chief complaint: Patient states: LLQ PAIN x3 DAYS. Coronavirus screen: Proceed with bp normal triage. Ebola Screen: No symptoms or risks identified at this time. Initial Sepsis Screen: Does the patient meet any 2 criteria? No. Patient's initial sepsis screen is negative. Does the patient have a suspected source of infection? No. Patient's initial sepsis screen is negative. Risk Assessment: Do you want to hurt yourself or someone else? Patient reports no desire to harm self or others. Onset of symptoms is unknown. 09:38 Method Of Arrival: Ambulatory bp 09:38 Acuity: INDY 3 bp Triage Assessment: 09:38 General: Appears in no apparent distress. uncomfortable, Behavior is cooperative, bp appropriate for age, anxious. Pain: Complains of pain in left lower quadrant. EENT: No deficits noted. Neuro: No deficits noted. Cardiovascular: No deficits noted. Respiratory: No deficits noted. GI: Abdomen is non-distended, Patient currently denies diarrhea, nausea, vomiting. : No signs and/or symptoms were reported regarding the genitourinary system. Derm: No deficits noted. Musculoskeletal: No deficits noted. Historical: - Allergies: 10:05 No Known Allergies; bp - Home Meds: 10:05 lisinopril 10 mg oral tab 1 tab [Active]; bp - PMHx: 09:31 Hypertension; jl7 - PSHx: 09:31 Cholecystectomy; Tubal ligation; jl7 - Immunization history:: Adult Immunizations unknown. - Social history:: Smoking status: Patient denies any tobacco usage or history of. Screenin:31 Abuse screen: Denies threats or abuse. Denies injuries from another. Nutritional jl7 screening: No deficits noted. Tuberculosis screening: No symptoms or risk factors identified. 11:29 Fall Risk None identified. bp Assessment: 09:40 General: SEE TRIAGE NOTE. bp 10:06 Reassessment: CT PENDING. GI: Bowel sounds present X 4 quads. Abd is soft. bp 10:31 Reassessment: PT RETURNED FROM CT. ALL CURRENT ORDERS COMPLETED. bp 11:29 Reassessment: PT D/C HOME AMBULATORY, DX WITH OVARIAN CYST. bp Vital Signs: 09:38 BP 135 / 89; Pulse 79; Resp 16; Temp 97.4; Pulse Ox 97% ; Weight 77.11 kg; Height 5 ft. bp 1 in. (154.94 cm); 10:05 BP 142 / 91; Pulse 72; Resp 15; Pulse Ox 98% ; bp 10:31 BP 123 / 89; Pulse 76; Resp 16; Pulse Ox 97% ; bp 11:15 BP 125 / 87; Pulse 72; Resp 16; Pulse Ox 97% ; bp 09:38 Body Mass Index 32.12 (77.11 kg, 154.94 cm) bp ED Course: 09:23 Patient arrived in ED. ag5 09:24 Jose Roberto Roman MD is Attending Physician. bony 09:24 Yoel Gonzáles PA is PHCP. jr8 09:27 Keron Caban, DHARMESH is Primary Nurse. bp 09:31 Arm band placed on right wrist. jl7 09:31 Patient has correct armband on for positive identification. Placed in gown. Bed in low jl7 position. Call light in reach. Side rails up X 1. Pulse ox on. NIBP on. 09:39 Triage completed. bp 09:50 Inserted saline lock: 20 gauge in right forearm, using aseptic technique. Blood bp collected. 10:20 CT completed. Patient tolerated procedure well. Patient moved back from CT. bq 10:21 CT Abd/Pelvis - IV Contrast Only In Process Unspecified. EDMS 11:09 Cleo Acevedo MD is Referral Physician. jr8 11:20 IV discontinued, Pressure dressing applied. mh5 11:29 No provider procedures requiring assistance completed. bp 11:30 IV discontinued, intact, bleeding controlled, No redness/swelling at site. Pressure bp dressing applied. Administered Medications: 09:50 Drug: morphine 4 mg Route: IVP; Site: right forearm; bp 10:44 Follow up: Response: Pain is decreased bp 09:50 Drug: Zofran (Ondansetron) 4 mg Route: IVP; Site: right forearm; bp 10:44 Follow up: Response: No adverse reaction bp Outcome: 11:10 Discharge ordered by MD. shipley 11:29 Discharged to home ambulatory. bp 11:29 Condition: stable 11:29 Discharge instructions given to patient, Instructed on discharge instructions, follow up and referral plans. medication usage, Demonstrated understanding of instructions, follow-up care, medications, Prescriptions given X 1. 11:30 Patient left the ED. bp Signatures: Dispatcher [employer] EDMS Jose Roberto Roman MD MD cha Quilty, Betty bq Roszak, Josh, PA PA Ana Laura Decker Charlene Marie RN RN jl7 Keron Caban RN RN bp Amberly Ford ag5
--- NOTE | 2019-10-23 11:10 | EDPHYS ---
Physician Documentation [facility] Name: Chio Still Age: 44 yrs Sex: Female : 1975 Arrival Date: 10/23/2019 Time: 09:23 Bed 6 Private MD: ED Physician Jose Roberto Roman HPI: 10/22 09:44 This 44 yrs old Female presents to ER via Ambulatory with complaints of jr8 Abdominal Pain. 09:44 The patient presents with abdominal pain in the left lower quadrant, mid abdomen. jr8 Onset: The symptoms/episode began/occurred acutely, 3 day(s) ago. The symptoms do not radiate. Associated signs and symptoms: none. The symptoms are described as stabbing. Modifying factors: The symptoms are alleviated by nothing, the symptoms are aggravated by nothing. Severity of pain: At its worst the pain was moderate in the emergency department the pain is unchanged. The patient has not experienced similar symptoms in the past. The patient has not recently seen a physician. Historical: - Allergies: 10:05 No Known Allergies; bp - Home Meds: 10:05 lisinopril 10 mg oral tab 1 tab [Active]; bp - PMHx: 09:31 Hypertension; jl7 - PSHx: 09:31 Cholecystectomy; Tubal ligation; jl7 - Immunization history:: Adult Immunizations unknown. - Social history:: Smoking status: Patient denies any tobacco usage or history of. ROS: 09:44 Eyes: Negative for injury, pain, redness, and discharge, ENT: Negative for injury, jr8 pain, and discharge, Neck: Negative for injury, pain, and swelling, Cardiovascular: Negative for chest pain, palpitations, and edema, Respiratory: Negative for shortness of breath, cough, wheezing, and pleuritic chest pain, Back: Negative for injury and pain, : Negative for injury, bleeding, discharge, and swelling, MS/Extremity: Negative for injury and deformity, Skin: Negative for injury, rash, and discoloration, Neuro: Negative for headache, weakness, numbness, tingling, and seizure. 09:44 Abdomen/GI: Positive for abdominal pain, Negative for nausea, vomiting, and diarrhea, constipation, abdominal cramps, abdominal distension, anorexia, dysphagia, hematemesis, black/tarry stool, rectal pain, rectal bleeding, bowel incontinence, flatulence. Exam: 09:44 Eyes: Pupils equal round and reactive to light, extra-ocular motions intact. Lids and jr8 lashes normal. Conjunctiva and sclera are non-icteric and not injected. Cornea within normal limits. Periorbital areas with no swelling, redness, or edema. ENT: Nares patent. No nasal discharge, no septal abnormalities noted. Tympanic membranes are normal and external auditory canals are clear. Oropharynx with no redness, swelling, or masses, exudates, or evidence of obstruction, uvula midline. Mucous membranes moist. Neck: Trachea midline, no thyromegaly or masses palpated, and no cervical lymphadenopathy. Supple, full range of motion without nuchal rigidity, or vertebral point tenderness. No Meningismus. Cardiovascular: Regular rate and rhythm with a normal S1 and S2. No gallops, murmurs, or rubs. Normal PMI, no JVD. No pulse deficits. Respiratory: Lungs have equal breath sounds bilaterally, clear to auscultation and percussion. No rales, rhonchi or wheezes noted. No increased work of breathing, no retractions or nasal flaring. Back: No spinal tenderness. No costovertebral tenderness. Full range of motion. Skin: Warm, dry with normal turgor. Normal color with no rashes, no lesions, and no evidence of cellulitis. MS/ Extremity: Pulses equal, no cyanosis. Neurovascular intact. Full, normal range of motion. Neuro: Awake and alert, GCS 15, oriented to person, place, time, and situation. Cranial nerves II-XII grossly intact. Motor strength 5/5 in all extremities. Sensory grossly intact. Cerebellar exam normal. Normal gait. 09:44 Abdomen/GI: Inspection: scar(s), are noted in the umbilical area, Bowel sounds: active, all quadrants, Palpation: soft, in all quadrants, mild abdominal tenderness, in the left upper quadrant and left lower quadrant, mass, is not appreciated, rebound tenderness, is not appreciated, voluntary guarding, is not appreciated, involuntary guarding, is not appreciated, no appreciated organomegaly, Indicators: McBurney's point is not tender, Echevarria's sign is negative, Rovsing's sign is negative, Liver: tenderness, is not appreciated. Vital Signs: 09:38 BP 135 / 89; Pulse 79; Resp 16; Temp 97.4; Pulse Ox 97% ; Weight 77.11 kg; Height 5 ft. bp 1 in. (154.94 cm); 10:05 BP 142 / 91; Pulse 72; Resp 15; Pulse Ox 98% ; bp 10:31 BP 123 / 89; Pulse 76; Resp 16; Pulse Ox 97% ; bp 11:15 BP 125 / 87; Pulse 72; Resp 16; Pulse Ox 97% ; bp 09:38 Body Mass Index 32.12 (77.11 kg, 154.94 cm) bp MDM: 09:29 Patient medically screened. jr8 10:49 Data reviewed: vital signs, nurses notes, lab test result(s), radiologic studies, CT jr8 scan. Data interpreted: Pulse oximetry: on room air is 97 %. Interpretation: normal. Counseling: I had a detailed discussion with the patient and/or guardian regarding: the historical points, exam findings, and any diagnostic results supporting the discharge/admit diagnosis, lab results, radiology results, the need for outpatient follow up, an OB/Gyne specialist, to return to the emergency department if symptoms worsen or persist or if there are any questions or concerns that arise at home. Response to treatment: the patient's symptoms have markedly improved after treatment. 11:04 ED course: Vitals and labs stable and without acute finding. CT shows ovarian cyst but jr8 no other acute pathology. Pain under control. Will d/c home to f/u with OB. 10/22 09:43 Order name: Basic Metabolic Panel; Complete Time: 10:43 10/22 09:43 Order name: CBC with Diff; Complete Time: 10:43 10/22 09:43 Order name: Hepatic Function; Complete Time: 10:43 10/22 09:43 Order name: Lipase; Complete Time: 10:43 10/22 09:43 Order name: Urine Microscopic Only; Complete Time: 10:43 10/22 10:00 Order name: Urine Dipstick--Ancillary (enter results) eb 10/22 09:43 Order name: IV Saline Lock; Complete Time: 10:04 10/22 09:43 Order name: Labs collected and sent; Complete Time: 10:04 10/22 09:43 Order name: Urine Test (obtain specimen); Complete Time: 10:03 10/22 09:43 Order name: Urine Dipstick-Ancillary (obtain specimen); Complete Time: 10:03 [facility] 10/22 09:44 Order name: CT Abd/Pelvis - IV Contrast Only; Complete Time: 10:43 [facility] 10/22 10:00 Order name: Urine --Ancillary (enter results) eb Administered Medications: 09:50 Drug: morphine 4 mg Route: IVP; Site: right forearm; bp 10:44 Follow up: Response: Pain is decreased bp 09:50 Drug: Zofran (Ondansetron) 4 mg Route: IVP; Site: right forearm; bp 10:44 Follow up: Response: No adverse reaction bp Disposition: 16:57 Co-signature as Attending Physician, Jose Roberto Roman MD I agree with the assessment and bony plan of care. Disposition: 10/23/19 11:10 Discharged to Home. Impression: Unspecified ovarian cysts, Abdominal and pelvic pain. - Condition is Stable. - Discharge Instructions: Abdominal Pain, Adult, Ovarian Cyst. - Prescriptions for Ibuprofen 800 mg Oral Tablet - take 1 tablet by ORAL route every 12 hours As needed take with food; 20 tablet. - Medication Reconciliation Form, Thank You Letter, Antibiotic Education, Prescription Opioid Use form. - Follow up: Cleo Acevedo MD; When: 5 - 6 days; Reason: Recheck today's complaints, Continuance of care, Re-evaluation by your physician. - Problem is new. - Symptoms have improved. Signatures: Dispatcher [employer] EDJose Roberto Antonio MD MD cha Roszak, Josh, PA PA jr8 Charlene Bautista RN RN jl7 Keron Caban RN RN bp Corrections: (The following items were deleted from the chart) 11:30 11:10 10/23/2019 11:10 Discharged to Home. Impression: Unspecified ovarian cysts; bp Abdominal and pelvic pain. Condition is Stable. Forms are Medication Reconciliation Form, Thank You Letter, Antibiotic Education, Prescription Opioid Use. Follow up: Cleo Acevedo; When: 5 - 6 days; Reason: Recheck today's complaints, Continuance of care, Re-evaluation by your physician. Problem is new. Symptoms have improved. jr8
[2019-10-23 11:37] VITALS: TEMP 97.4
[2019-10-23 11:40] VITALS: O2SAT 97
[2019-10-23 11:41] VITALS: BP 125/87
[2019-10-23 11:56] LABS: Urine Blood 1+ (NEG); Urine Glucose NEGATIVE (NEG); Urine Protein NEGATIVE (NEG); Urine pH 5.5 (5.0-7.0)
== END 2019-10-23 11:30 | disposition home or self-care (01) ==
LOC: ER 09:20
DX: N83.209 Unspecified ovarian cyst, unspecified side (principal); I10 Essential (primary) hypertension
CPT/HCPCS: 36415; 74177; 80048; 80076; 81003; 81015; 81025; 83690; 85025; 96374; 96375; 99284; J2405; Q9967

== ENCOUNTER 2020-10-28 17:37 | Emergency (ER) | payer SELFPAY ==
--- OUTSIDE RECORDS SUMMARY | 2020-10-28 17:39 | XMS REPORT | Continuity of Care Document ---
:1975 Author Organization [facility] t Address [address] [place] [address] Care Team Providers Name Role Phone Unavailable Unavailable Unavailable Problems This patient has no known problems. Allergies, Adverse Reactions, Alerts This patient has no known allergies or adverse reactions. Medications This patient has no known medications. Procedures This patient has no known procedures. Results Test Description Test Time Test Comments Results Result Sourc e Comments SCR MAMM 2018-06-10 MAMM BILATERAL BILATERAL CAD 15:53:27 CAD DIGITALBILATERAL DIGITAL DIGITAL SCREENING MAMMOGRAM WITH CAD: 06/04/2018CLINICAL: Asymptomatic. Current mammographic images were evaluated by either a Linkpass M-Vu or a [employer] ImageChecker CAD (computer aided detection system). No prior exams were available for comparison. The tissue of both breasts is heterogeneously dense. This may lower the sensitivity of mammography. No suspicious mass, architectural distortion, malignant type calcification, or lymph node abnormality detected. IMPRESSION: NEGATIVEThere is no mammographic evidence of malignancy. Resume annual screening mammography in one year. Meliton Miller M.D. pl/penkaterina:06/10/2018 15:53:27 Horse Race Timer: Le Salgado MM, [facility] Mammographyletter sent: BIRADS 1-2 Normal Mammogram BI-RADS: 1 Negative
[2020-10-28] MEDS ORDERED: ACETAMINOPHEN 500 MG TAB ONE (19:51)
--- NOTE | 2020-10-28 20:37 | ER ---
Nurse's Notes [facility] Name: Chio Still Age: 45 yrs Sex: Female : 1975 Arrival Date: 10/28/2020 Time: 17:39 Bed 24 Private MD: Diagnosis: Ankle Sprain, Right Presentation: 10/28 17:52 Chief complaint: Patient states: "I have a swollen right ankle for 2 weeks. and as far jd3 as I know I never hurt it anyway. it is just painful and swollen.". Coronavirus screen: At this time, the client does not indicate any symptoms associated with coronavirus-19. Ebola Screen: Patient negative for fever greater than or equal to 101.5 degrees Fahrenheit, and additional compatible Ebola Virus Disease symptoms. Initial Sepsis Screen: Does the patient meet any 2 criteria? No. Patient's initial sepsis screen is negative. Does the patient have a suspected source of infection? No. Patient's initial sepsis screen is negative. Risk Assessment: Do you want to hurt yourself or someone else? Patient reports no desire to harm self or others. Onset of symptoms was October 18, 2020. 17:52 Method Of Arrival: Ambulatory j 17:52 Acuity: INDY 4 jd3 MYCOLOGIST: 17:54 LMP 10/26/2020 j Historical: - Allergies: 17:54 No Known Allergies; jd3 - Home Meds: 17:54 lisinopril 10 mg Oral tab 1 tab [Active]; jd3 - PMHx: 17:54 Hypertension; jd3 - PSHx: 17:54 Cholecystectomy; Tubal ligation; jd3 - Immunization history:: Adult Immunizations up to date. - Social history:: Smoking status: Patient denies any tobacco usage or history of. Screenin:19 Abuse screen: Denies threats or abuse. Nutritional screening: No deficits noted. em Tuberculosis screening: No symptoms or risk factors identified. Fall Risk None identified. Assessment: 19:20 General: Appears in no apparent distress. comfortable, Behavior is calm, cooperative, em appropriate for age. Pain: Complains of pain in right foot Pain currently is 7 out of 10 on a pain scale. Neuro: Level of Consciousness is awake, alert, obeys commands, Oriented to person, place, time, situation. Cardiovascular: Capillary refill < 3 seconds Patient's skin is warm and dry. Respiratory: Airway is patent Respiratory effort is even, unlabored, Respiratory pattern is regular, symmetrical. Derm: Skin is intact, is healthy with good turgor, Skin is pink, warm \\T\\ dry. Musculoskeletal: Swelling present in right foot. Vital Signs: 17:54 BP 143 / 106; Pulse 79; Resp 17 S; Temp 98.0(TE); Pulse Ox 100% on R/A; Weight 76.2 kg jd3 (R); Height 5 ft. 2 in. (157.48 cm) (R); Pain 7/10; 21:01 BP 130 / 90; Pulse 73; Resp 16; Temp 97.6(O); Pulse Ox 98% on R/A; mh5 17:54 Body Mass Index 30.73 (76.20 kg, 157.48 cm) [facility] ED Course: 17:39 Patient arrived in ED. ds1 17:53 Triage completed. jd3 17:55 Arm band placed on. d3 19:15 Cristhian Chavira, RN is Primary Nurse. em 19:16 Serge Roberts MD is Attending Physician. 7 19:19 Patient has correct armband on for positive identification. Call light in reach. Adult em w/ patient. 19:43 Ankle Right 3 View XRAY In Process Unspecified. EDMS 20:36 Thuan Tate DPM is Referral Physician. mh7 20:36 Arnaud Vega MD is Referral Physician. 7 20:59 Crutch training done. Air stirrup applied to right ankle. 5 21:05 No provider procedures requiring assistance completed. Patient did not have IV access em during this emergency room visit. Administered Medications: 19:32 Drug: Tylenol 1000 mg Route: PO; em 20:42 Follow up: Response: No adverse reaction em Outcome: 20:37 Discharge ordered by . 7 21:05 Discharged to home via wheelchair, with crutches. em 21:05 Condition: good 21:05 Discharge instructions given to patient, Instructed on discharge instructions, follow up and referral plans. medication usage, crutch walking, Demonstrated understanding of instructions, follow-up care, medications, crutch walking, Prescriptions given X 1. 21:07 Patient left the ED. em Signatures: Dispatcher [employer] EDMS Cristhian Chavira RN RN Elenita Canales ds1 Ana Laura Rubalcava 5 Tung Casas RN RN jd3 Serge Roberts MD MD 7
--- NOTE | 2020-10-28 20:37 | EDPHYS ---
Physician Documentation [facility] Name: Chio Still Age: 45 yrs Sex: Female : 1975 Arrival Date: 10/28/2020 Time: 17:39 Bed 24 Private MD: ED Physician Serge Roberts HPI: 10/28 19:26 This 45 yrs old Female presents to ER via Ambulatory with complaints of Foot mh7 Swelling. 19:26 The patient presents with pain, that is acute, swelling. The complaints affect the mh7 right ankle. Onset: The symptoms/episode began/occurred 2 week(s) ago. Context: The problem was sustained at an unknown location, resulted from an unknown cause, The mechanism of injury is unknown. The patient can fully bear weight on the affected extremity. the patient is able to ambulate, with mild difficulty. Associated signs and symptoms: Pertinent positives: swelling, Pertinent negatives: calf tenderness, fever, nausea, numbness, rash, tingling, vomiting, warmth, weakness. Modifying factors: The symptoms are alleviated by nothing, the symptoms are aggravated by weight bearing. 19:27 Severity of symptoms: At their worst the symptoms were moderate, 5 day(s) ago, in the [facility] emergency department the symptoms are unchanged. [employer]SEM[employer] PING PONG TABLE: 17:54 LMP 10/26/2020 jd3 Historical: - Allergies: 17:54 No Known Allergies; jd3 - Home Meds: 17:54 lisinopril 10 mg Oral tab 1 tab [Active]; jd3 - PMHx: 17:54 Hypertension; jd3 - PSHx: 17:54 Cholecystectomy; Tubal ligation; jd3 - Immunization history:: Adult Immunizations up to date. - Social history:: Smoking status: Patient denies any tobacco usage or history of. ROS: 19:27 Constitutional: Negative for fever, chills, and weight loss, Eyes: Negative for injury, mh7 pain, redness, and discharge, ENT: Negative for injury, pain, and discharge, Neck: Negative for injury, pain, and swelling, Cardiovascular: Negative for chest pain, palpitations, and edema, Respiratory: Negative for shortness of breath, cough, wheezing, and pleuritic chest pain, Abdomen/GI: Negative for abdominal pain, nausea, vomiting, diarrhea, and constipation, Back: Negative for injury and pain, : Negative for injury, bleeding, discharge, and swelling, Skin: Negative for injury, rash, and discoloration, Neuro: Negative for headache, weakness, numbness, tingling, and seizure. Exam: 19:27 Constitutional: This is a well developed, well nourished patient who is awake, alert, mh7 and in no acute distress. Head/Face: Normocephalic, atraumatic. Cardiovascular: Regular rate and rhythm with a normal S1 and S2. No gallops, murmurs, or rubs. Normal PMI, no JVD. No pulse deficits. Respiratory: Lungs have equal breath sounds bilaterally, clear to auscultation and percussion. No rales, rhonchi or wheezes noted. No increased work of breathing, no retractions or nasal flaring. Abdomen/GI: Soft, non-tender, with normal bowel sounds. No distension or tympany. No guarding or rebound. No evidence of tenderness throughout. Skin: Warm, dry with normal turgor. Normal color with no rashes, no lesions, and no evidence of cellulitis. 19:27 Neuro: Awake and alert, GCS 15, oriented to person, place, time, and situation. Cranial nerves II-XII grossly intact. Motor strength 5/5 in all extremities. Sensory grossly intact. Cerebellar exam normal. Normal gait. Psych: Awake, alert, with orientation to person, place and time. Behavior, mood, and affect are within normal limits. 19:27 Musculoskeletal/extremity: Extremities: noted in the right ankle lateral aspect: pain, swelling, tenderness, ROM: limited active range of motion due to pain, in the right ankle, limited passive range of motion due to pain, in the right ankle, Circulation is intact in all extremities. Sensation intact. Compartment Syndrome exam of affected extremity: is normal. no numbness, no tingling, no sensation deficit, no palor, no weak pulses, Joints: the right ankle lateral aspect displays painful range of motion, swelling, tenderness, Weight bearing: able to fully bear weight, mild difficulty, Tendon exam: specific tendon testing normal through active and passive range of motion DVT Exam: negative Homans' sign noted on exam, no appreciated bluish discoloration, no erythema, no increased warmth, Calves: are non-tender, have equal circumference. Vital Signs: 17:54 BP 143 / 106; Pulse 79; Resp 17 S; Temp 98.0(TE); Pulse Ox 100% on R/A; Weight 76.2 kg jd3 (R); Height 5 ft. 2 in. (157.48 cm) (R); Pain 7/10; 21:01 BP 130 / 90; Pulse 73; Resp 16; Temp 97.6(O); Pulse Ox 98% on R/A; mh5 17:54 Body Mass Index 30.73 (76.20 kg, 157.48 cm) jd3 MDM: 20:34 Differential diagnosis: fracture, sprain, arthritis, gout. Data reviewed: vital signs, [facility] nurses notes, radiologic studies, plain films. Counseling: I had a detailed discussion with the patient and/or guardian regarding: the historical points, exam findings, and any diagnostic results supporting the discharge/admit diagnosis, the presence of at least one elevated blood pressure reading (>120/80) during this emergency department visit, radiology results, the need for outpatient follow up, to return to the emergency department if symptoms worsen or persist or if there are any questions or concerns that arise at home. Response to treatment: the patient's symptoms have markedly improved after treatment. 20:37 Patient medically screened. [facility] 10/28 19:25 Order name: Ankle Right 3 View XRAY [facility] 10/28 20:34 Order name: Splint - Ankle: Aircast; Complete Time: 20:42 [facility] 10/28 20:34 Order name: Crutches; Complete Time: 20:42 [facility] Administered Medications: 19:32 Drug: Tylenol 1000 mg Route: PO; em 20:42 Follow up: Response: No adverse reaction em Disposition: 10/28/20 20:37 Discharged to Home. Impression: Ankle Sprain, Right. - Condition is Stable. - Discharge Instructions: Ankle Sprain, [id number]. - Prescriptions for Ibuprofen 800 mg Oral Tablet - take 1 tablet by ORAL route every 8 hours As needed take with food; 15 tablet. - Work release form, Medication Reconciliation Form, Thank You Letter, Antibiotic Education, Prescription Opioid Use form. - Follow up: Private Physician; When: 1 - 2 days; Reason: Worsening of condition, Recheck today's complaints, Continuance of care, Re-evaluation by your physician. Follow up: Thuan Tate DPM; When: 1 - 2 days; Reason: Worsening of condition, Recheck today's complaints. Follow up: Arnaud Vega MD; When: 2 - 3 days; Reason: Worsening of condition, Recheck today's complaints. - Problem is an ongoing problem. - Symptoms have improved. Signatures: Dispatcher [employer] EDCristhian Lizama RN RN Tung French RN RN Serge Lucero MD MD mh7 Corrections: (The following items were deleted from the chart) 21:07 20:37 10/28/2020 20:37 Discharged to Home. Impression: Ankle Sprain, Right. Condition em is Stable. Forms are Medication Reconciliation Form, Thank You Letter, Antibiotic Education, Prescription Opioid Use. Follow up: Private Physician; When: 1 - 2 days; Reason: Worsening of condition, Recheck today's complaints, Continuance of care, Re-evaluation by your physician. Follow up: Thuan Tate; When: 1 - 2 days; Reason: Worsening of condition, Recheck today's complaints. Follow up: Dr. Arnaud Vega; When: 2 - 3 days; Reason: Worsening of condition, Recheck today's complaints. Problem is an ongoing problem. Symptoms have improved. mh7
[2020-10-28 21:12] VITALS: BP 130/90; TEMP 97.6; O2SAT 98
--- NOTE | 2020-10-28 21:38 | RAD REPORT ---
EXAM DESCRIPTION: RAD - Ankle Right 3 View - 10/28/2020 7:44 pm CLINICAL HISTORY: Nontraumatic ankle pain and swelling COMPARISON: None. FINDINGS: No fracture, dislocation or periosteal reaction. No joint effusion seen. No joint space na rrowing. Lateral soft tissue swelling is present. IMPRESSION: Soft tissue swelling with no right ankle fracture.
== END 2020-10-28 21:07 | disposition home or self-care (01) ==
LOC: ER 17:37
DX: S93.401A Sprain of unspecified ligament of right ankle, initial encounter (principal); I10 Essential (primary) hypertension
CPT/HCPCS: 99284

== ENCOUNTER 2022-01-07 10:41 | Emergency (ER) | payer OTHER ==
--- OUTSIDE RECORDS SUMMARY | 2022-01-07 10:45 | XMS REPORT | Clinical Summary ---
:1975 Author Organization [facility] MD [facility] Center Address [address] [place] [address] Care Team Providers Name Role Phone Marcel Belvins MD Unavailable Alexandra Braden Unavailable Meliton [place] MD Primary Care Provider Allergies No known active allergies Medications Medication Sig Dispensed Refills Start Date End Date Status amLODIPine (NORVASC) 10 Take 10 mg by 0 Active mg tablet mouth. lisinopril Take 12.5 mg by 0 Act nina (PRINIVIL,ZESTRIL) 10 mouth. Dose is mg tablet 12.5mg phentermine (ADIPEX-P) TAKE ONE (1) 0 10/14/2021 Active 37.5 mg tablet TABLET(S) BY MOUTH ONCE A DAY. Active Problems Not on file Encounters Date Type Specialty Care Team Description 01/06/2022 Office Visit Orthopaedics Meliton [place] Unilateral pri mary MD osteoarthritis of right knee 01/06/2022 Ancillary Radiology Meliton [place] Unilateral quinn hernandez Procedure osteoarthritis of right knee 01/06/2022 Ancillary Radiology Meliton [place] Unilateral quinn Ventura MD osteoarthritis of right knee 01/06/2022 Ancillary Radiology Meliton [place] Unilateral quinn Ventura MD osteoarthritis of right knee 01/06/2022 Travel 01/03/2022 Ancillary Radiology Meliton [place] Unilateral quinn Ventura MD osteoarthritis of right knee 01/03/2022 Travel 11/25/2021 Office Visit Orthopaedics Meliton [place] Unilateral pri mary osteoarthritis of right knee (Primary Dx); Pain in right k nee; Mass of joint o f right knee 11/25/2021 Travel 11/18/2021 Ancillary Radiology Meliton [place], Pain in right knee Procedure 11/18/2021 Travel 08/28/2021 Ancillary Radiology Meliton [place], Cancer Procedure 08/19/2021 Ancillary Radiology Meliton [place], Cancer Procedure 08/19/2021 Ancillary Radiology Meliton [place], Cancer Procedure 08/19/2021 Ancillary Radiology Meliton [place], Cancer Procedure 08/19/2021 Ancillary Radiology Meliton [place], Pain in right knee Procedure 08/19/2021 Ancillary Radiology Meliton [place], Pain in right knee Procedure 08/19/2021 Ancillary Radiology Meliton [place], Pain in right knee Procedure 08/19/2021 Office Visit Orthopaedics Meliton [place], Pain in right knee (Primary Dx) 08/19/2021 Travel 08/16/2021 NPR Patient Access Meliton Colorado, Services 08/14/2021 Travel after 01/07/2021 Medical History Medical History Date Comments Hypertension Jan 18 2017 Social History Tobacco Use Types Packs/Day Years Used Date Never Assessed Sex Assigned at Date Recorded Female 08/15/2021 8:42 PM CDT Job Start Date Occupation Industry Not on file Not on file Not on file COVID-19 Exposure Response Date Recorded In the last 10 days, have you been in contact with No / Unsu re 01/06/2022 11:14 AM CDT someone who was confirmed or suspected to have Coronavirus/COVID-19? Obstetrics History Last Filed Vital Signs Vital Sign Reading Time Taken Comments Blood Pressure 133/89 01/06/2022 1:12 PM CDT Pulse 82 01/06/2022 1:12 PM CDT Temperature 36.9 C (98.4 F) 01/06/2022 1:12 PM CDT Respiratory Rate 16 01/06/2022 1:12 PM CDT Oxygen Saturation 99% 01/06/2022 1:12 PM CDT Inhaled Oxygen Concentration - - Weight 75.5 kg (166 lb 7.2 oz) 01/06/2022 1:15 PM CDT Height 158 cm (5' 2.21") 08/19/2021 8:13 AM CDT Body Mass Index 30.24 08/19/2021 8:13 AM CDT Plan of Treatment Health Maintenance Due Date Last Done Comments COVID-19 Vaccination (#1) 1975 Procedures Procedure Name Priority Date/Time Associated Diagnosis Comme nts XR KNEE 1 OR 2 VW Routine 01/06/2022 12:30 Unilateral primary Results for this RIGHT PM CDT osteoarthritis of procedure are in right knee the results section. XR FEMUR 2 VW RIGHT Routine 01/06/2022 12:30 Unilateral primar y Results for this PM CDT osteoarthritis of procedure are in right knee the results section. XR TIBIA FIBULA 2 VW Routine 01/06/2022 12:29 Unilateral prima ry Results for this RIGHT PM CDT osteoarthritis of procedure are in right knee the results section. MRI KNEE RIGHT W WO Routine 01/03/2022 2:10 Unilateral primary Results for this CONTRAST PM CDT osteoarthritis of procedure are in right knee the results section. MRI KNEE RIGHT W WO Routine 11/18/2021 7:53 Pain in right knee Results for this CONTRAST AM CDT procedure are i n the results section. XR CHEST 2 VW Routine 08/19/2021 10:18 Pain in right knee Resu lts for this AM CDT procedure are i n the results section. XR KNEES STANDING Routine 08/19/2021 10:16 Pain in right knee Results for this BILATERAL AP AM CDT procedure are i n the results section. OSI MRI LOWER EXT Routine 08/08/2021 12:57 Cancer Result s for this PM CDT procedure are i n the results section. OSI US EXTREMITIES Routine 07/22/2021 12:55 Cancer Resul ts for this PM CDT procedure are i n the results section. OSI US VASCULAR Routine 07/18/2021 12:56 Cancer Results for this PM [employer] procedure are i n the results section. after 01/07/2021 Results XR Knee 1 Or 2 Views Right (01/06/2022 12:30 PM CDT) Anatomical Region Laterality Modality Knee, Extremity Digital Radiography Specimen (Source) Anatomical Collection Method Collection Time Re ceived Time Location / / Volume Laterality 01/06/2022 1:15 PM CDT Impressions 01/06/2022 1:21 PM CDT 1. Mild osteoarthritis of the right knee joint. 2. Right suprapatellar joint effusion. 3. Increased density within the auto inspection specialist ior compartment of the right knee with the secondary to no vertebral fracture popliteal cyst. 4. Intrinsically negative right femur and right tibia and fibula. Narrative 01/06/2022 1:21 PM CDT FULL RESULT: Examination: XR KNEE 1 OR 2 VW RIGHT, XR FEMUR 2 VW RIGHT, XR TIBIA FIBULA 2 VW RIGHT, 01/06/2022 12:30 PM. Clinical History: Unilateral primary ost eoarthritis of right knee. Indication: Pain. Comparison: MRI the right knee dated . Technique: 2 views of the right femur, 2 views of the right knee, 2 views of the right tibia and fibula. Findings: The right femur is intrinsical ly normal. There is no acute fracture dislocation of the right femur. The right femoral head is maintained within the acetabulum. Early osteoarthritis of the right knee j oint is seen with signs of the tibial spine spurring and subchondral sclerosis along with mild lateral joint space narrowing is noted. There is no acute fracture dislocation of the right knee joint. Rig ht suprapatellar joint effusion is noted. Increased radiodensity density within the posterior compartment is likely secondary to the patient's known ruptured popliteal cyst. The right tibia and fibula is intrinsica lly unremarkable. The ankle joint is maintained. Mild calcaneal spurring is noted. Degenerative changes noted at the talar navicular joint. Procedure Note Anthony Rashid MD - 01/06/2022Formattin g of this note might be different from the original. FULL RESULT: Examination: XR KNEE 1 OR 2 VW RIGHT, XR FEMUR 2 VW RIGHT, XR TIBIA FIBULA 2 VW RIGHT, 01/06/2022 12:30 PM. Clinical History: Unilateral primary ost eoarthritis of right knee. Indication: Pain. Comparison: MRI the right knee dated . Technique: 2 views of the right femur, 2 views of the right knee, 2 views of the right tibia and fibula. Findings: The right femur is intrinsical ly normal. There is no acute fracture dislocation of the right femur. The right femoral head is maintained within the acetabulum. Early osteoarthritis of the right knee j oint is seen with signs of the tibial spine spurring and subchondral sclerosis along with mild lateral joint space narrowing is noted. There is no acute fracture dislocation of the right knee joint. Right suprapatella r joint effusion is noted. Increased radiodensity density within the posterior compartment is likely secondary to the patient's known ruptured popliteal cyst. The right tibia and fibula is intrinsica lly unremarkable. The ankle joint is maintained. Mild calcaneal spurring is noted. Degenerative changes noted at the talar navicular joint. IMPRESSION: 1. Mild osteoarthritis of the right knee joint. 2. Right suprapatellar joint effusion. 3. Increased density within the posterio r compartment of the right knee with the secondary to no vertebral fracture popliteal cyst. 4. Intrinsically negative right femur an d right tibia and fibula. Meliton Colorado MD IM DIAGNOSTIC IMAGING ORDER THOR X-ray Femur 2 Views Right (01/06/2022 12:30 PM CDT) Anatomical Region Laterality Modality Thigh, Extremity Digital Radiography Specimen (Source) Anatomical Collection Method Collection Time Re ceived Time Location / / Volume Laterality 01/06/2022 1:15 PM CDT Impressions 01/06/2022 1:21 PM CDT 1. Mild osteoarthritis of the right knee joint. 2. Right suprapatellar joint effusion. 3. Increased density within the auto inspection specialist ior compartment of the right knee with the secondary to no vertebral fracture popliteal cyst. 4. Intrinsically negative right femur and right tibia and fibula. Narrative 01/06/2022 1:21 PM CDT FULL RESULT: Examination: XR KNEE 1 OR 2 VW RIGHT, XR FEMUR 2 VW RIGHT, XR TIBIA FIBULA 2 VW RIGHT, 01/06/2022 12:30 PM. Clinical History: Unilateral primary ost eoarthritis of right knee. Indication: Pain. Comparison: MRI the right knee dated . Technique: 2 views of the right femur, 2 views of the right knee, 2 views of the right tibia and fibula. Findings: The right femur is intrinsical ly normal. There is no acute fracture dislocation of the right femur. The right femoral head is maintained within the acetabulum. Early osteoarthritis of the right knee j oint is seen with signs of the tibial spine spurring and subchondral sclerosis along with mild lateral joint space narrowing is noted. There is no acute fracture dislocation of the right knee joint. Rig ht suprapatellar joint effusion is noted. Increased radiodensity density within the posterior compartment is likely secondary to the patient's known ruptured popliteal cyst. The right tibia and fibula is intrinsica lly unremarkable. The ankle joint is maintained. Mild calcaneal spurring is noted. Degenerative changes noted at the talar navicular joint. Procedure Note Anthony Rashid MD - 01/06/2022Formattin g of this note might be different from the original. FULL RESULT: Examination: XR KNEE 1 OR 2 VW RIGHT, XR FEMUR 2 VW RIGHT, XR TIBIA FIBULA 2 VW RIGHT, 01/06/2022 12:30 PM. Clinical History: Unilateral primary ost eoarthritis of right knee. Indication: Pain. Comparison: MRI the right knee dated . Technique: 2 views of the right femur, 2 views of the right knee, 2 views of the right tibia and fibula. Findings: The right femur is intrinsical ly normal. There is no acute fracture dislocation of the right femur. The right femoral head is maintained within the acetabulum. Early osteoarthritis of the right knee j oint is seen with signs of the tibial spine spurring and subchondral sclerosis along with mild lateral joint space narrowing is noted. There is no acute fracture dislocation of the right knee joint. Right suprapatella r joint effusion is noted. Increased radiodensity density within the posterior compartment is likely secondary to the patient's known ruptured popliteal cyst. The right tibia and fibula is intrinsica lly unremarkable. The ankle joint is maintained. Mild calcaneal spurring is noted. Degenerative changes noted at the talar navicular joint. IMPRESSION: 1. Mild osteoarthritis of the right knee joint. 2. Right suprapatellar joint effusion. 3. Increased density within the posterio r compartment of the right knee with the secondary to no vertebral fracture popliteal cyst. 4. Intrinsically negative right femur an d right tibia and fibula. Meliton [place] MD IM DIAGNOSTIC IMAGING ORDER THOR X-ray Tibia Fibula 2 Views Right (01/06/2022 12:29 PM CDT) Anatomical Region Laterality Modality Leg, Extremity Digital Radiography Specimen (Source) Anatomical Collection Method Collection Time Re ceived Time Location / / Volume Laterality 01/06/2022 1:15 PM CDT Impressions 01/06/2022 1:21 PM CDT 1. Mild osteoarthritis of the right knee joint. 2. Right suprapatellar joint effusion. 3. Increased density within the auto inspection specialist ior compartment of the right knee with the secondary to no vertebral fracture popliteal cyst. 4. Intrinsically negative right femur and right tibia and fibula. Narrative 01/06/2022 1:21 PM CDT FULL RESULT: Examination: XR KNEE 1 OR 2 VW RIGHT, XR FEMUR 2 VW RIGHT, XR TIBIA FIBULA 2 VW RIGHT, 01/06/2022 12:30 PM. Clinical History: Unilateral primary ost eoarthritis of right knee. Indication: Pain. Comparison: MRI the right knee dated . Technique: 2 views of the right femur, 2 views of the right knee, 2 views of the right tibia and fibula. Findings: The right femur is intrinsical ly normal. There is no acute fracture dislocation of the right femur. The right femoral head is maintained within the acetabulum. Early osteoarthritis of the right knee j oint is seen with signs of the tibial spine spurring and subchondral sclerosis along with mild lateral joint space narrowing is noted. There is no acute fracture dislocation of the right knee joint. Rig ht suprapatellar joint effusion is noted. Increased radiodensity density within the posterior compartment is likely secondary to the patient's known ruptured popliteal cyst. The right tibia and fibula is intrinsica lly unremarkable. The ankle joint is maintained. Mild calcaneal spurring is noted. Degenerative changes noted at the talar navicular joint. Procedure Note Anthony Rashid MD - 01/06/2022Formattin g of this note might be different from the original. FULL RESULT: Examination: XR KNEE 1 OR 2 VW RIGHT, XR FEMUR 2 VW RIGHT, XR TIBIA FIBULA 2 VW RIGHT, 01/06/2022 12:30 PM. Clinical History: Unilateral primary ost eoarthritis of right knee. Indication: Pain. Comparison: MRI the right knee dated . Technique: 2 views of the right femur, 2 views of the right knee, 2 views of the right tibia and fibula. Findings: The right femur is intrinsical ly normal. There is no acute fracture dislocation of the right femur. The right femoral head is maintained within the acetabulum. Early osteoarthritis of the right knee j oint is seen with signs of the tibial spine spurring and subchondral sclerosis along with mild lateral joint space narrowing is noted. There is no acute fracture dislocation of the right knee joint. Right suprapatella r joint effusion is noted. Increased radiodensity density within the posterior compartment is likely secondary to the patient's known ruptured popliteal cyst. The right tibia and fibula is intrinsica lly unremarkable. The ankle joint is maintained. Mild calcaneal spurring is noted. Degenerative changes noted at the talar navicular joint. IMPRESSION: 1. Mild osteoarthritis of the right knee joint. 2. Right suprapatellar joint effusion. 3. Increased density within the posterio r compartment of the right knee with the secondary to no vertebral fracture popliteal cyst. 4. Intrinsically negative right femur an d right tibia and fibula. Meliton [place] MD IMG DIAGNOSTIC IMAGING ORDER THOR MRI Knee Right with and without Contrast (01/03/2022 2:10 PM CDT)Only the most recent of2 resultswithin the time period is included. Anatomical Region Laterality Modality Knee, Extremity Magnetic Resonance Specimen (Source) Anatomical Collection Method Collection Time Re ceived Time Location / / Volume Laterality 01/03/2022 3:16 PM CDT Impressions 01/03/2022 3:38 PM CDT 1. Pre-existing popliteal ganglion cyst communicating with the gastrocnemius/semitendinosus bursa, demonstrating interval size reduction associated with evidence of rupture/leakage with synovial fluid extravasation along the popliteal fossa and aponeurotic surface of the medial gastrocnemius muscle. 2. Otherwise no evidence of bone or so ft tissue tumor. 3. Grade 3 patellofemoral chondromalac ia. 4. Mild infrapatellar Hoffitis. Narrative 01/03/2022 3:38 PM CDT FULL RESULT: Examination: MRI KNEE RIGHT W WO CONTRAS T, 01/03/2022 2:10 PM. Clinical History: A 46-year-old female p atient with the posterior knee cystic mass Indication: (R) posterior knee cystic ma ss Comparison: MRI 11/18/2021 Technique: Multiplanar multisequence mag netic resonance imaging of the right knee was performed without and with intravenous administration of contrast. Findings: Soft tissues: * Review of prior MRI 11/19/2019 demons trates a cystic septated T2 hyperintense linear enhancing nodule immediately deep to the popliteal neurovascular bundle measuring 2.6 x 1.5 x 2.6 cm, highly sugge stive of a ganglion cyst. Such cyst demo nstrates a thin laminar communication with the gastrocnemius/semimembranosus hiatus (series 3 image 26, 24, 23 and 21). * On the current exam, the described s tructure only measures 1.8 x 0.8 x 1.6 cm, inferiorly abutting the superior/femoral component of the posterior capsule of the knee (series 8 image 23 and series 3 image 17). * There is interval development of the presence of linear fluid along the superior and inferior popliteal fossa extending along the aponeurotic surface of the medial left gastrocnemius, longitudinally measuring more than 13 cm (series 8 marsha ge 20), contacting the gastrocnemius/semimembranosus hiatus, concerning for a ruptured popliteal cyst/bursa Other: * Femoral patellar chondromalacia grad e 3 seen within the lateral patella and medial trochlea (series 3 image 22 and 18). * There is mild distention of the supr apatellar recess. * There is no mediastinal or lateral m eniscal tear. * The ACL and PCL appears preserved. * There is mild edema of the Hoffa's f at pad the MCL and lateral collateral ligaments appear preserved. Procedure Note Humberto Copeland MD - 01/03/2022F ormatting of this note might be different from the original. FULL RESULT: Examination: MRI KNEE RIGHT W JT [place], 01/03/2022 2:10 PM. Clinical History: A 46-year-old female p atient with the posterior knee cystic mass Indication: (R) posterior knee cystic ma ss Comparison: MRI 11/18/2021 Technique: Multiplanar multisequence mag netic resonance imaging of the right knee was performed without and with intravenous administration of contrast. Findings: Soft tissues: * Review of prior MRI 11/19/2019 demonstr ates a cystic septated T2 hyperintense linear enhancing nodule immediately deep to the popliteal neurovascular bundle measuring 2.6 x 1.5 x 2.6 cm, highly suggestive of a ganglion cyst. Such cyst demonstrates a thin laminar communication with the gastrocnemius/semimembranosus hiatus (series 3 image 26, 24, 23 and 21). * On the current exam, the described str ucture only measures 1.8 x 0.8 x 1.6 cm, inferiorly abutting the superior/femoral component of the posterior capsule of the knee (series 8 image 23 and series 3 image 17). * There is interval development of the p resence of linear fluid along the superior and inferior popliteal fossa extending along the aponeurotic surface of the medial left gastrocnemius, longitudinally measuring more than 13 cm (series 8 image 20), contacti ng the gastrocnemius/semimembranosus hiatus, concerning for a ruptured popliteal cyst/bursa Other: * Femoral patellar chondromalacia grade 3 seen within the lateral patella and medial trochlea (series 3 image 22 and 18). * There is mild distention of the suprap atellar recess. * There is no mediastinal or lateral men iscal tear. * The ACL and PCL appears preserved. * There is mild edema of the Hoffa's fat pad the MCL and lateral collateral ligaments appear preserved. IMPRESSION: 1. Pre-existing popliteal ganglion cyst communicating with the gastrocnemius/semitendinosus bursa, demonstrating interval size reduction associated with evidence of rupture/leakage with synovial fluid extravasation along the popliteal fossa and aponeurotic surface of the medial gastrocnemius muscle. 2. Otherwise no evidence of bone or soft tissue tumor. 3. Grade 3 patellofemoral chondromalacia . 4. Mild infrapatellar Hoffitis. Meliton [place] MD IMG MRI ORDERABLES X-ray Chest 2 Views (08/19/2021 10:18 AM CDT) Anatomical Region Laterality Modality Chest Digital Radiography Specimen (Source) Anatomical Collection Method Collection Time Re ceived Time Location / / Volume Laterality 08/19/2021 10:22 AM CDT Impressions 08/19/2021 10:23 AM CDT There is no sign of acute or metastatic intrathoracic disease. Narrative 08/19/2021 10:23 AM CDT FULL RESULT: Examination: Chest, 2 views, 08/19/2021 1 0:18 AM Clinical History: Pain in right knee: As sess for active or metastatic intrathoracic disease. Clarify subsequent treatment strategy. Indication: Baseline Chest X-Ray: Assess for active or metastatic intrathoracic disease. Clarify subsequent treatment strategy. Pain in right knee. Comparison: None Technique: Posterior, lateral and dual-e nergy radiograph of the chest Findings: Lung parenchyma:There are there are no n oncalcified pulmonary nodules. There is no sign of consolidation to suggest pneumonia. Nodes:There is no enlargement of the med iastinal or hilar regions to suggest underlying enlarged nodes. Cardiac: The cardiopericardial silhouett e is not enlarged. Pleura:There is no sign of a pleural eff usion. Clips over the right upper abdomen likel y reactive. Cholecystectomy. Procedure Note Emeka Nicholas MD - 08/19/2021Formatt ing of this note might be different from the original. FULL RESULT: Examination: Chest, 2 views, 08/19/2021 1 0:18 AM Clinical History: Pain in right knee: As sess for active or metastatic intrathoracic disease. Clarify subsequent treatment strategy. Indication: Baseline Chest X-Ray: Assess for active or metastatic intrathoracic disease. Clarify subsequent treatment strategy. Pain in right knee. Comparison: None Technique: Posterior, lateral and dual-e nergy radiograph of the chest Findings: Lung parenchyma:There are there are no n oncalcified pulmonary nodules. There is no sign of consolidation to suggest pneumonia. Nodes:There is no enlargement of the med iastinal or hilar regions to suggest underlying enlarged nodes. Cardiac: The cardiopericardial silhouett e is not enlarged. Pleura:There is no sign of a pleural eff usion. Clips over the right upper abdomen likel y reactive. Cholecystectomy. IMPRESSION: There is no sign of acute or metastatic intrathoracic disease. Meliton [place] MD IM DIAGNOSTIC IMAGING ORDER THOR XR Knees Standing Bilateral AP (08/19/2021 10:16 AM CDT) Anatomical Region Laterality Modality Knee, Extremity Digital Radiography Specimen (Source) Anatomical Collection Method Collection Time Re ceived Time Location / / Volume Laterality 08/19/2021 2:39 PM CDT Impressions 08/19/2021 2:40 PM CDT Minimal narrowing medial compartments bi laterally. Narrative 08/19/2021 2:40 PM CDT FULL RESULT: Examination: XR KNEES STANDING BILATERAL AP on 08/19/2021 10:16 AM Clinical History: Pain in right knee Indication: R knee pain, likely OA Comparison: None. Technique: XR KNEES STANDING BILATERAL A P Findings: Standing right knee: Minimal narrowing o f the medial compartment. Otherwise negative examination of the right knee. Standing left knee: Minimal narrowing of the medial compartment. Otherwise negative examination of the left knee. Procedure Note Jerry Echevarria Jr., MD - 08/19/2021F ormatting of this note might be different from the original. FULL RESULT: Examination: XR KNEES STANDING BILATERAL AP on 08/19/2021 10:16 AM Clinical History: Pain in right knee Indication: R knee pain, likely OA Comparison: None. Technique: XR KNEES STANDING BILATERAL A P Findings: Standing right knee: Minimal narrowing o f the medial compartment. Otherwise negative examination of the right knee. Standing left knee: Minimal narrowing of the medial compartment. Otherwise negative examination of the left knee. IMPRESSION: Minimal narrowing medial compartments bi laterally. Meliton HERMAN DIAGNOSTIC IMAGING ORDER THOR OSI MRI Lower Ext (08/08/2021 12:57 PM CDT) Specimen (Source) Anatomical Location Collection Method / Collectio n Time Received Time / Laterality Volume Narrative Systemgenerated, Documentation - 12:57 PM CDT Study acquired at another institution. For comparison only. No MD Roman originated interpretation requested or a vailable. Meliton HERMAN OUTSIDE IMAGE ORDERABLES OSI US Extremities (07/22/2021 12:55 PM CDT) Specimen (Source) Anatomical Location Collection Method / Collectio n Time Received Time / Laterality Volume Narrative Systemgenerated, Documentation - 022 12:55 PM CDT Study acquired at another institution. For comparison only. No MD Roman originated interpretation requested or a vailable. 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 For comparison only. No MD Roman originated interpretation requested or a vailable. Meliton HERMAN OUTSIDE IMAGE ORDERABLES after 01/07/2021 Insurance Payer Benefit Plan / Subscriber ID Effective Dates Phone Addre ss Type Group [facility] [id number] 2021-Prese [phone] [facility] [place] [place] [address] Care Teams Assistant Property Manager Relationship Specialty Start Date End Date Marcel Blevins, PCP - External Referring Orthopedic Surgery 08/14/[address] [place] [address] [address] [place] [address] Alexandra Braden PCP - External Primary 08/14/[address] [place] [address] [place] [address] Meliton [place] MD PCP - General Orthopedic Surgery 08/15/[address] [place] [address] [id number]
--- OUTSIDE RECORDS SUMMARY | 2022-01-07 10:51 | XMS REPORT | Continuity of Care Document ---
:[address] [facility] t Address [address] [place] [address] Care Team Providers Name Role Phone [phone] Primary Care Physician Unavailable SYSTEM, PROVIDER NOT IN Attending Clinician Unavailable Lilliam Cheek Attending Clinician Unavailable Meliton Gonzalez MD Attending Clinician MELITON GONAZLEZ Attending Clinician Unavailable Payers Payer Name Policy Type Policy Number Effective Date Expiration Date S ource Problems This patient has no known problems. Allergies, Adverse Reactions, Alerts This patient has no known allergies or adverse reactions. Social History Social Habit Start Date Stop Date Quantity Comments Source Exposure to 2021-12-27 2022-01-06 Not sure [facility] SARS-CoV-2 (event) 00:00:00 11:14:00 [facility] Sex Assigned At [birth year] F [facility] [place] [facility] [place] [facility] [place] 00:00:00 00:00:00 MD Roman [facility] Medications Ordered Filled Start Stop Current Ordering Indication Dosage Frequency Signature Comments Components Source Medication Medication Date Date Medication? Clinician (SIG) Name Name amLODIPine Yes 10mg Take 10 mg U nivers (NORVASC) 8-29 by mouth. ity o f 10 mg 13:17: [place] [facility] Yes 12.5mg Take 12.5 Univers (PRINIVIL,Z 8-29 mg by ity of ESTRIL) 10 13:17: mouth. [place] mg tablet 42 Dose is 12.5mg [facility] amLODIPine 2-0 Yes 10mg Take 10 mg U nivers (NORVASC) 7-18 by mouth. ity o f 10 mg 10:18: [place] tablet 53 [facility] lisinopril 2021-0 Yes 12.5mg Take 12.5 Univers (PRINIVIL,Z 7-18 mg by ity of ESTRIL) 10 10:18: mouth. [place] mg tablet 53 Dose is MD 12.5mg [facility] amLODIPine 2-0 Yes 10mg Take 10 mg U nivers (NORVASC) 7-18 by mouth. ity o f 10 mg 10:18: [place] tablet 53 [facility] lisinopril 2021-0 Yes 12.5mg Take 12.5 Univers (PRINIVIL,Z 7-18 mg by ity of ESTRIL) 10 10:18: mouth. [place] mg tablet 53 Dose is MD 12.5mg [facility] cyclobenzap 2021-0 No 1mg rine 10 mg 7-01 tablet 00:00: 00 Dose 2021-0 No Unknown 7- 00:00: 00 TAKE ONE 2021-0 No (1) 7-01 TABLET(S) 00:00: BY MOUTH 00 ONCE A DAY. TAKE ONE 2021-0 No (1) 7-01 TABLET(S) 00:00: BY MOUTH 00 ONCE A DAY. TAKE ONE 2021-0 No (1) 7-01 TABLET(S) 00:00: BY MOUTH 00 ONCE A DAY. cyclobenzap 2021-0 No 1mg rine 10 mg 7-01 tablet 00:00: 00 Dose 2022-0 No Unknown 7- 00:00: 00 TAKE ONE 2021-0 No (1) 7-01 TABLET(S) 00:00: BY MOUTH 00 ONCE A DAY. TAKE ONE 2021-0 No (1) 7-01 TABLET(S) 00:00: BY MOUTH 00 ONCE A DAY. TAKE ONE 202-0 No (1) 7-01 TABLET(S) 00:00: BY MOUTH 00 ONCE A DAY. Dose 2022-0 No Unknown 6-30 00:00: 00 Dose 2022-0 No Unknown 6-30 00:00: 00 Dose 2022-0 No Unknown 6-30 00:00: 00 Dose 2-0 No Unknown 6-30 00:00: 00 phentermine 2021-0 Yes TAKE ONE Un genaro (ADIPEX-P) 6-06 (1) ity of 37.5 mg 00:00: TABLET(S) [place] tablet 00 BY MOUTH ONCE [facility] phentermine 2021-0 Yes TAKE ONE Un genaro (ADIPEX-P) 6-06 (1) ity of 37.5 mg 00:00: TABLET(S) [place] tablet 00 BY MOUTH ONCE A Anders DAY. [facility] phentermine 2021-0 Yes TAKE ONE Un genaro (ADIPEX-P) 6-06 (1) ity of 37.5 mg 00:00: TABLET(S) [place] tablet 00 BY MOUTH ONCE A [facility] n [facility] Dose 2021-0 No Unknown 5-25 00:00: 00 Dose 2021-0 No Unknown 5-25 00:00: 00 albuterol 2021-0 No 12mcg/a sulfate HFA 5-23 ctuatio 90 00:00: n mcg/actuati 00 on aerosol inhaler prednisone 2021-0 No 1mg 50 mg 5-23 tablet 00:00: 00 bromphenira 2021-0 No 10mg/5 mine-pseudo 5-23 mL ephedrine-D 00:00: M 2 mg-30 00 mg-10 mg/5 mL oral syrup Dose 2021-0 No Unknown 5-23 00:00: 00 albuterol 2-0 No 12mcg/a sulfate HFA 5-23 ctuatio 90 00:00: n mcg/actuati 00 on aerosol inhaler prednisone 2021-0 No 1mg 50 mg 5-23 tablet 00:00: 00 bromphenira 2-0 No 10mg/5 mine-pseudo 5-23 mL ephedrine-D 00:00: M 2 mg-30 00 mg-10 mg/5 mL oral syrup Dose 2021-0 No Unknown 5-23 00:00: 00 amlodipine 2-0 No 1mg 5 mg tablet 5-07 00:00: 00 lisinopril 2-0 No 1mg 20 5-07 mg-hydrochl 00:00: orothiazide 00 12.5 mg tablet Dose 2022-0 No Unknown 5-07 00:00: 00 Dose 2022-0 No Unknown 5-07 00:00: 00 Dose 2022-0 No Unknown 5-07 00:00: 00 Dose 2022-0 No Unknown 5-07 00:00: 00 Dose 2022-0 No Unknown 5-07 00:00: 00 Dose 2022-0 No Unknown 5-07 00:00: 00 Dose 2022-0 No Unknown 5-07 00:00: 00 Dose 2022-0 No Unknown 5-07 00:00: 00 Dose 2022-0 No Unknown 5-07 00:00: 00 Dose 2022-0 No Unknown 5-07 00:00: 00 Dose 2022-0 No Unknown 5-07 00:00: 00 Dose 2022-0 No Unknown 5-07 00:00: 00 Dose 2022-0 No Unknown 5-07 00:00: 00 Dose 2022-0 No Unknown 5-07 00:00: 00 Dose 2022-0 No Unknown 5-07 00:00: 00 Dose 2022-0 No Unknown 5-07 00:00: 00 Dose 2022-0 No Unknown 5-07 00:00: 00 Dose 2022-0 No Unknown 5-07 00:00: 00 Dose 2022-0 No Unknown 5-07 00:00: 00 Dose 2022-0 No Unknown 5-07 00:00: 00 Dose 2022-0 No Unknown 5-07 00:00: 00 Dose 2022-0 No Unknown 5-07 00:00: 00 Dose 2022-0 No Unknown 5-07 00:00: 00 Dose 2022-0 No Unknown 5-07 00:00: 00 Dose 2022-0 No Unknown 5-07 00:00: 00 Dose 2022-0 No Unknown 5-07 00:00: 00 Dose 2022-0 No Unknown 5-07 00:00: 00 Dose 2022-0 No Unknown 5-07 00:00: 00 Dose 2022-0 No Unknown 5-07 00:00: 00 Dose 2022-0 No Unknown 5-07 00:00: 00 Dose 2022-0 No Unknown 5-07 00:00: 00 Dose 2022-0 No Unknown 5-07 00:00: 00 Dose 2022-0 No Unknown 5-07 00:00: 00 Dose 2022-0 No Unknown 5-07 00:00: 00 Dose 2022-0 No Unknown 5-07 00:00: 00 Dose 2022-0 No Unknown 5-07 00:00: 00 Dose 2022-0 No Unknown 5-07 00:00: 00 Dose 2022-0 No Unknown 5-07 00:00: 00 Dose 2022-0 No Unknown 5-07 00:00: 00 Dose 2022-0 No Unknown 5-07 00:00: 00 Dose 2022-0 No Unknown 5-07 00:00: 00 Dose 2022-0 No Unknown 5-07 00:00: 00 Dose 2022-0 No Unknown 5-07 00:00: 00 Dose 2022-0 No Unknown 5-07 00:00: 00 Dose 2022-0 No Unknown 5-07 00:00: 00 amlodipine 2022-0 No 1mg 5 mg tablet 5-07 00:00: 00 lisinopril 2-0 No 1mg 20 5-07 mg-hydrochl 00:00: orothiazide 00 12.5 mg tablet Dose 2-0 No Unknown 5-07 00:00: 00 Dose 2022-0 No Unknown 5-07 00:00: 00 Dose 2022-0 No Unknown 5-07 00:00: 00 Dose 2022-0 No Unknown 5-07 00:00: 00 Dose 2022-0 No Unknown 5-07 00:00: 00 Dose 2022-0 No Unknown 5-07 00:00: 00 Dose 2022-0 No Unknown 5-07 00:00: 00 Dose 2022-0 No Unknown 5-07 00:00: 00 Dose 2022-0 No Unknown 5-07 00:00: 00 Dose 2022-0 No Unknown 5-07 00:00: 00 Dose 2022-0 No Unknown 5-07 00:00: 00 Dose 2022-0 No Unknown 5-07 00:00: 00 Dose 2022-0 No Unknown 5-07 00:00: 00 Dose 2022-0 No Unknown 5-07 00:00: 00 Dose 2022-0 No Unknown 5-07 00:00: 00 Dose 2022-0 No Unknown 5-07 00:00: 00 Dose 2022-0 No Unknown 5-07 00:00: 00 Dose 2022-0 No Unknown 5-07 00:00: 00 Dose 2022-0 No Unknown 5-07 00:00: 00 Dose 2022-0 No Unknown 5-07 00:00: 00 Dose 2022-0 No Unknown 5-07 00:00: 00 Dose 2022-0 No Unknown 5-07 00:00: 00 Dose 2022-0 No Unknown 5-07 00:00: 00 Dose 2022-0 No Unknown 5-07 00:00: 00 Dose 2022-0 No Unknown 5-07 00:00: 00 Dose 2022-0 No Unknown 5-07 00:00: 00 Dose 2022-0 No Unknown 5-07 00:00: 00 Dose 2022-0 No Unknown 5-07 00:00: 00 Dose 2022-0 No Unknown 5-07 00:00: 00 Dose 2022-0 No Unknown 5-07 00:00: 00 Dose 2022-0 No Unknown 5-07 00:00: 00 Dose 2022-0 No Unknown 5-07 00:00: 00 Dose 2022-0 No Unknown 5-07 00:00: 00 Dose 2022-0 No Unknown 5-07 00:00: 00 Dose 2022-0 No Unknown 5-07 00:00: 00 Dose 2022-0 No Unknown 5-07 00:00: 00 Dose 2022-0 No Unknown 5-07 00:00: 00 Dose 2022-0 No Unknown 5-07 00:00: 00 Dose 2022-0 No Unknown 5-07 00:00: 00 Dose 2022-0 No Unknown 5-07 00:00: 00 Dose 2022-0 No Unknown 5-07 00:00: 00 Dose 2022-0 No Unknown 5-07 00:00: 00 Dose 2022-0 No Unknown 5-07 00:00: 00 Dose 2022-0 No Unknown 5-07 00:00: 00 Dose 2022-0 No Unknown 5-07 00:00: 00 Dose 2021-1 No Unknown 1-08 00:00: 00 Dose 2021-1 No Unknown 1-08 00:00: 00 Dose 2021-1 No Unknown 1-08 00:00: 00 Dose 2021-1 No Unknown 1-08 00:00: 00 ciprofloxac 2021-0 No 1mg in 500 mg 01-16 tablet 00:00: 00 pantoprazol 1-0 No 1mg e 40 mg 9-08 tablet,alex 00:00: yed release 00 dicyclomine 2021-0 No 12mg 10 mg 9-08 capsule 00:00: 00 ciprofloxac 2021-0 No 1mg in 500 mg 9-08 tablet 00:00: 00 pantoprazol 2021-0 No 1mg e 40 mg 9-08 tablet,alex 00:00: yed release 00 dicyclomine 2021-0 No 12mg 10 mg 9-08 capsule 00:00: 00 amlodipine 2021-0 No 1mg 5 mg tablet 01-05 00:00: 00 lisinopril 2021-0 No 1mg 20 8-28 mg-hydrochl 00:00: orothiazide 00 12.5 mg tablet amlodipine 1-0 No 1mg 5 mg tablet 01-05 00:00: 00 lisinopril 2021-0 No 1mg 20 8-28 mg-hydrochl 00:00: orothiazide 00 12.5 mg tablet amlodipine 1-0 No 1mg 5 mg tablet 10-30 00:00: 00 lisinopril 2021-0 No 1mg 20 6-22 mg-hydrochl 00:00: orothiazide 00 12.5 mg tablet amlodipine 1-0 No 1mg 5 mg tablet 10-30 00:00: 00 lisinopril 2021-0 No 1mg 20 6-22 mg-hydrochl 00:00: orothiazide 00 12.5 mg tablet amlodipine 1-0 No 1mg 5 mg tablet 10-03 00:00: 00 lisinopril 2021-0 No 1mg 20 5-26 mg-hydrochl 00:00: orothiazide 00 12.5 mg tablet amlodipine 1-0 No 1mg 5 mg tablet 10-03 00:00: 00 lisinopril 2021-0 No 1mg 20 5-26 mg-hydrochl 00:00: orothiazide 00 12.5 mg tablet amlodipine 2021-0 No 1mg 5 mg tablet 08-16 00:00: 00 lisinopril 2021-0 No 1mg 20 4-08 mg-hydrochl 00:00: orothiazide 00 12.5 mg tablet amlodipine 2021-0 No 1mg 5 mg tablet 08-16 00:00: 00 lisinopril 2021-0 No 1mg 20 4-08 mg-hydrochl 00:00: orothiazide 00 12.5 mg tablet amlodipine 1-0 No 1mg 5 mg tablet 2- 00:00: 00 lisinopril 2021-0 No 1mg 20 2-26 mg-hydrochl 00:00: orothiazide 00 12.5 mg tablet amlodipine 1-0 No 1mg 5 mg tablet 2- 00:00: 00 lisinopril 1-0 No 1mg 20 2-26 mg-hydrochl 00:00: orothiazide 00 12.5 mg tablet amlodipine 2019-1 No 1mg 5 mg tablet 2-15 00:00: 00 amlodipine 2020-1 No 1mg 5 mg tablet 2-15 00:00: 00 lisinopril 2020-1 No 1mg 20 0-23 mg-hydrochl 00:00: orothiazide 00 12.5 mg tablet lisinopril 2020-1 No 1mg 20 0-23 mg-hydrochl 00:00: orothiazide 00 12.5 mg tablet lisinopril 2019-1 No 1mg 20 0-23 mg-hydrochl 00:00: orothiazide 00 12.5 mg tablet lisinopril 2019-1 No 1mg 20 0-23 mg-hydrochl 00:00: orothiazide 00 12.5 mg tablet Cipro 250 2020-0 No 1mg mg tablet 6-25 00:00: 00 Cipro 250 2020-0 No 1mg mg tablet 6-25 00:00: 00 ibuprofen 2020-0 No 1mg 800 mg 6-18 tablet 00:00: 00 Macrobid 2020-0 No 1mg 100 mg 6-18 capsule 00:00: 00 ibuprofen 2020-0 No 1mg 800 mg 6-18 tablet 00:00: 00 Macrobid 2020-0 No 1mg 100 mg 6-18 capsule 00:00: 00 Diflucan 2020-0 No 1mg 150 mg 5-19 tablet 00:00: 00 Diflucan 2020-0 No 1mg 150 mg 5-19 tablet 00:00: 00 lisinopril 2019-1 No 1mg 20 1-21 mg-hydrochl 00:00: orothiazide 00 12.5 mg tablet lisinopril 2019-1 No 1mg 20 1-21 mg-hydrochl 00:00: orothiazide 00 12.5 mg tablet lisinopril 2019-1 No 1mg 20 0-15 mg-hydrochl 00:00: orothiazide 00 12.5 mg tablet lisinopril 2019-1 No 1mg 20 0-15 mg-hydrochl 00:00: orothiazide 00 12.5 mg tablet amoxicillin 2019-0 No 2mg 500 mg 8-07 tablet 00:00: 00 clarithromy 2019-0 No 1mg janene 500 mg 8-07 tablet 00:00: 00 omeprazole 2019-0 No 1mg 20 mg 8-07 capsule,del 00:00: ayed 00 release amoxicillin 2019-0 No 2mg 500 mg 8-07 tablet 00:00: 00 clarithromy 2019-0 No 1mg janene 500 mg 8-07 tablet 00:00: 00 omeprazole 2019-0 No 1mg 20 mg 8-07 capsule,del 00:00: ayed 00 release Macrobid 2019-0 No 1mg 100 mg 7-13 capsule 00:00: 00 Macrobid 2019-0 No 1mg 100 mg 7-13 capsule 00:00: 00 lisinopril 2019-0 No 1mg 20 6-27 mg-hydrochl 00:00: orothiazide 00 12.5 mg tablet lisinopril 2019-0 No 1mg 20 6-27 mg-hydrochl 00:00: orothiazide 00 12.5 mg tablet fluconazole 2018-1 No 1mg 150 mg 1-01 tablet 00:00: 00 fluconazole 2018-1 No 1mg 150 mg 1-01 tablet 00:00: 00 lisinopril 2018-1 No 1mg 20 0-26 mg-hydrochl 00:00: orothiazide 00 12.5 mg tablet lisinopril 2018-1 No 1mg 20 0-26 mg-hydrochl 00:00: orothiazide 00 12.5 mg tablet Diflucan 2018-0 No 1mg 150 mg 7-21 tablet 00:00: 00 Diflucan 2018-0 No 1mg 150 mg 7-21 tablet 00:00: 00 Cipro 500 2018-0 No 1mg mg tablet 7-20 00:00: 00 Cipro 500 2018-0 No 1mg mg tablet 7-20 00:00: 00 lisinopril 2018-0 No 1mg 20 7-19 mg-hydrochl 00:00: orothiazide 00 12.5 mg tablet lisinopril 2018-0 No 1mg 20 7-19 mg-hydrochl 00:00: orothiazide 00 12.5 mg tablet lisinopril 2018-0 No 1mg 20 2-22 mg-hydrochl 00:00: orothiazide 00 12.5 mg tablet lisinopril 2018-0 No 1mg 20 2-22 mg-hydrochl 00:00: orothiazide 00 12.5 mg tablet naproxen 2017-0 No 1mg 500 mg 9-28 tablet 00:00: 00 cyclobenzap 2017-0 No 1mg rine 10 mg 9-28 tablet 00:00: 00 lisinopril 2017-0 No 1mg 20 9-28 mg-hydrochl 00:00: orothiazide 00 12.5 mg tablet naproxen 2017-0 No 1mg 500 mg 9-28 tablet 00:00: 00 cyclobenzap 2017-0 No 1mg rine 10 mg 9-28 tablet 00:00: 00 lisinopril 2017-0 No 1mg 20 9-28 mg-hydrochl 00:00: orothiazide 00 12.5 mg tablet lisinopril 2016-0 No 1mg 20 5-19 mg-hydrochl 00:00: orothiazide 00 12.5 mg tablet lisinopril 2016-0 No 1mg 20 5-19 mg-hydrochl 00:00: orothiazide 00 12.5 mg tablet lisinopril 2015-1 No 1mg 20 0-05 mg-hydrochl 00:00: orothiazide 00 12.5 mg tablet lisinopril 2015-1 No 1mg 20 0-05 mg-hydrochl 00:00: orothiazide 00 12.5 mg tablet meclizine 2016-0 No 1mg 25 mg 7-08 tablet 00:00: 00 lisinopril 2015-0 No 1mg 20 7-08 mg-hydrochl 00:00: orothiazide 00 12.5 mg tablet meclizine 2015-0 No 1mg 25 mg 7-08 tablet 00:00: 00 lisinopril 2015-0 No 1mg 20 7-08 mg-hydrochl 00:00: orothiazide 00 12.5 mg tablet lisinopril 2014-1 No 1mg 20 0-06 mg-hydrochl 00:00: orothiazide 00 12.5 mg tablet lisinopril 2014-05 No 1mg 20 0-06 mg-hydrochl 00:00: orothiazide 00 12.5 mg tablet lisinopril 2014-05 No 1mg 20 0-06 mg-hydrochl 00:00: orothiazide 00 12.5 mg tablet lisinopril 2014-05 No 1mg 20 0-06 mg-hydrochl 00:00: orothiazide 00 12.5 mg tablet Vital Signs Vital Name Observation Time Observation Value Comments Source Body weight 2022-01-06 18:15:00 75.5 kg [facility] BMI 2022-01-06 18:15:00 30.24 kg/m2 [facility] Systolic blood 2022-01-06 18:12:00 133 mm[Hg] [facility] [place] [facility] Diastolic blood 2022-01-06 18:12:00 89 mm[Hg] [facility] of [facility] Heart rate 2022-01-06 18:12:00 82 /min [facility] Body temperature 2022-01-06 18:12:00 36.89 [facility] Respiratory rate 2022-01-06 18:12:00 16 /min [facility] Oxygen saturation in 2022-01-06 18:12:00 99 /min [facility] Arterial blood by Gia durham Pulse oximetry [facility] BP Systolic 2022-01-01 17:27:00 146 mm[Hg] BP Diastolic 2022-01-01 17:27:00 100 mm[Hg] Weight Measured 2022-01-01 17:27:00 170.40 pounds Height Measured 2022-01-01 17:27:00 63.00 inches Body Temperature 2022-01-01 17:27:00 98.40 degrees Heart Rate 2022-01-01 17:27:00 117.00 /min Respiratory Rate 2022-01-01 17:27:00 18.00 /min BP Systolic 2021-12-24 14:29:00 134 mm[Hg] BP Diastolic 2021-12-24 14:29:00 86 mm[Hg] Weight Measured 2021-12-24 14:29:00 169.60 pounds Height Measured 2021-12-24 14:29:00 63.00 inches Body Temperature 2021-12-24 14:29:00 99.10 degrees Heart Rate 2021-12-24 14:29:00 88.00 /min Respiratory Rate 2021-12-24 14:29:00 19.00 /min Systolic blood 2021-11-25 15:17:26 126 mm[Hg] [facility] [place] [facility] Diastolic blood 2021-11-25 15:17:26 86 mm[Hg] [facility] Heart rate 2021-11-25 15:17:26 81 /min [facility] Body temperature 2021-11-25 15:17:26 36.61 [facility] Respiratory rate 2021-11-25 15:17:26 16 /min [facility] Body weight 2021-11-25 15:17:00 [facility] BMI 2021-11-25 15:17:00 31.65 kg/m2 [facility] BP Systolic 2021-11-08 10:30:00 127 mm[Hg] BP Diastolic 2021-11-08 10:30:00 90 mm[Hg] Weight Measured 2021-11-08 10:30:00 171.00 pounds Height Measured 2021-11-08 10:30:00 63.00 inches Body Temperature 2021-11-08 10:30:00 98.00 degrees Heart Rate 2021-11-08 10:30:00 98.00 /min Respiratory Rate 2021-11-08 10:30:00 BP Systolic 2021-09-14 15:22:00 124 mm[Hg] BP Diastolic 2021-09-14 15:22:00 85 mm[Hg] Weight Measured 2021-09-14 15:22:00 172.40 pounds Height Measured 2021-09-14 15:22:00 63.00 inches Body Temperature 2021-09-14 15:22:00 98.30 degrees Heart Rate 2021-09-14 15:22:00 86.00 /min Respiratory Rate 2021-09-14 15:22:00 Oxygen saturation in 2021-08-19 13:13:20 99 /min [facility] Arter[facility] blood by G[facility] Pulse oximetry [facility] Body height 2021-08-19 13:13:20 158 cm [facility] BP Systolic 2021-03-18 09:37:00 BP Diastolic 2021-03-18 09:37:00 Weight Measured 2021-03-18 09:37:00 164.00 pounds Height Measured 2021-03-18 09:37:00 63.00 inches Body Temperature 2021-03-18 09:37:00 Heart Rate 2021-03-18 09:37:00 Respiratory Rate 2021-03-18 09:37:00 BP Systolic 2021-01-16 11:51:00 112 mm[Hg] BP Diastolic 2021-01-16 11:51:00 69 mm[Hg] Weight Measured 2021-01-16 11:51:00 164.60 pounds Height Measured 2021-01-16 11:51:00 63.00 inches Body Temperature 2021-01-16 11:51:00 98.00 degrees Heart Rate 2021-01-16 11:51:00 83.00 /min Respiratory Rate 2021-01-16 11:51:00 BP Systolic 2021-01-05 13:25:00 129 mm[Hg] BP Diastolic 2021-01-05 13:25:00 80 mm[Hg] Weight Measured 2021-01-05 13:25:00 164.40 pounds Height Measured 2021-01-05 13:25:00 63.00 inches Body Temperature 2021-01-05 13:25:00 98.20 degrees Heart Rate 2021-01-05 13:25:00 110.00 /min Respiratory Rate 2021-01-05 13:25:00 BP Systolic 2020-07-06 09:07:00 122 mm[Hg] BP Diastolic 2020-07-06 09:07:00 86 mm[Hg] Weight Measured 2020-07-06 09:07:00 178.00 pounds Height Measured 2020-07-06 09:07:00 63.00 inches Body Temperature 2020-07-06 09:07:00 98.30 degrees Heart Rate 2020-07-06 09:07:00 77.00 /min Respiratory Rate 2020-07-06 09:07:00 17.00 /min BP Systolic 2020-04-24 15:53:00 129 mm[Hg] BP Diastolic 2020-04-24 15:53:00 85 mm[Hg] Weight Measured 2020-04-24 15:53:00 Height Measured 2020-04-24 15:53:00 Body Temperature 2020-04-24 15:53:00 Heart Rate 2020-04-24 15:53:00 86.00 /min Respiratory Rate 2020-04-24 15:53:00 BP Systolic 2020-03-02 09:37:00 141 mm[Hg] BP Diastolic 2020-03-02 09:37:00 95 mm[Hg] Weight Measured 2020-03-02 09:37:00 179.00 pounds Height Measured 2020-03-02 09:37:00 63.00 inches Body Temperature 2020-03-02 09:37:00 98.40 degrees Heart Rate 2020-03-02 09:37:00 72.00 /min Respiratory Rate 2020-03-02 09:37:00 16.00 /min Procedures Procedure Date / Time Performing Clinician Source Performed XR KNEE 1 OR 2 VW RIGHT 2022-01-06 17:30:50 Errol Carmen [facility] XR FEMUR 2 VW RIGHT 2022-01-06 17:30:[address] [facility] Center XR TIBIA FIBULA 2 VW 2022-01-06 17:29:40 Errol Carmen [facility] er Center MRI KNEE RIGHT W WO 2022-01-03 19:10:[address] [facility] [place] [id number] Bx Skin 2022-01-01 00:00:00 Subcutaneous /mucous Membrane 1 Lesion MRI KNEE RIGHT W WO 2021-11-18 12:53:27 Isra Mckeon [facility] er Center XR CHEST 2 VW 2021-08-19 15:18:18 Isra Mckeon [facility] er Center XR KNEES STANDING 2021-08-19 15:16:40 Isra Mckeon [facility] [place] BILATERAL AP [facility] er Center OSI MRI LOWER EXT 2021-08-08 17:57:00 Meliton Gonzalez [facility] er Center OSI US EXTREMITIES 2021-07-22 17:55:00 [facility] Center OSI US VASCULAR 2021-07-18 18:56:00 Carlos [facility] er [place] Plan of Care Planned Activity Planned Date Details Comments Source Future Scheduled 2022-01-07 COVID-19 Vaccination [facility] [place] Test 08:25:18 (#1) [code = COVID-19 [facility] (#1[facility] Center Future Scheduled 2021-12-31 COVID-19 Vaccination [facility] [place] Test 10:20:09 (#1) [code = COVID-19 [facility] (#1)] Center Future Scheduled 2021-12-20 COVID-19 Vaccination [facility] [place] Test 11:43:45 (#1) [code = COVID-19 [facility] (#1)] Center Goal Plan of Care Note [code = 15194-9] Goal Plan of Care Note [code = 49972-8] Goal Plan of Care Note [code = 60033-7] Goal Plan of Care Note [code = 54736-6] Goal Plan of Care Note [code = 08483-9] Goal Plan of Care Note [code = 21663-1] Goal Plan of Care Note [code = 57120-8] Goal Plan of Care Note [code = 30048-9] Goal Plan of Care Note [code = 98540-4] Goal Plan of Care Note [code = 03224-7] Goal Plan of Care Note [code = 05944-2] Goal Plan of Care Note [code = 48272-9] Goal Plan of Care Note [code = 12963-2] Goal Plan of Care Note [code = 32503-7] Goal Plan of Care Note [code = 09895-0] Goal Plan of Care Note [code = 34294-1] Goal Plan of Care Note [code = 42705-4] Goal Plan of Care Note [code = 29540-8] Goal Plan of Care Note [code = 51103-3] Goal Plan of Care Note [code = 17414-3] Goal Plan of Care Note [code = 44612-5] Goal Plan of Care Note [code = 78433-3] Goal Plan of Care Note [code = 39826-8] Goal Plan of Care Note [code = 75430-8] Goal Plan of Care Note [code = 18894-6] Goal Plan of Care Note [code = 30182-7] Goal Plan of Care Note [code = 49401-1] Goal Plan of Care Note [code = 01838-9] Goal Plan of Care Note [code = 18816-5] Goal Plan of Care Note [code = 44452-1] Goal Plan of Care Note [code = 63113-9] Goal Plan of Care Note [code = 34111-4] Goal Plan of Care Note [code = 21010-9] Goal Plan of Care Note [code = 40550-3] Goal Plan of Care Note [code = 00942-1] Goal Plan of Care Note [code = 60568-5] Goal Plan of Care Note [code = 04482-2] Goal Plan of Care Note [code = 26199-6] Goal Plan of Care Note [code = 66982-9] Goal Plan of Care Note [code = 52219-2] Goal Plan of Care Note [code = 31769-4] Goal Plan of Care Note [code = 23012-0] Goal Plan of Care Note [code = 37551-3] Goal Plan of Care Note [code = 99343-1] Goal Plan of Care Note [code = 17068-8] Goal Plan of Care Note [code = 37839-5] Goal Plan of Care Note [code = 89741-6] Goal Plan of Care Note [code = 15415-4] Goal Plan of Care Note [code = 57210-5] Goal Plan of Care Note [code = 84620-8] Goal Plan of Care Note [code = 59312-0] Goal Plan of Care Note [code = 45696-2] Goal Plan of Care Note [code = 65180-2] Goal Plan of Care Note [code = 56873-7] Goal Plan of Care Note [code = 39593-6] Goal Plan of Care Note [code = 36091-2] Goal Plan of Care Note [code = 38282-4] Goal Plan of Care Note [code = 50896-1] Goal Plan of Care Note [code = 46228-7] Goal Plan of Care Note [code = 40840-6] Goal Plan of Care Note [code = 34374-4] Goal Plan of Care Note [code = 58649-6] Goal Plan of Care Note [code = 91445-5] Goal Plan of Care Note [code = 72535-7] Goal Plan of Care Note [code = 77182-4] Goal Plan of Care Note [code = 43204-3] Goal Plan of Care Note [code = 65869-9] Goal Plan of Care Note [code = 73047-7] Goal Plan of Care Note [code = 50912-4] Goal Plan of Care Note [code = 29408-3] Goal Plan of Care Note [code = 87476-0] Goal Plan of Care Note [code = 44925-7] Goal Plan of Care Note [code = 88610-3] Goal Plan of Care Note [code = 71397-8] Goal Plan of Care Note [code = 59655-9] Goal Plan of Care Note [code = 27092-5] Goal Plan of Care Note [code = 46854-7] Goal Plan of Care Note [code = 64077-7] Goal Plan of Care Note [code = 91986-9] Goal Plan of Care Note [code = 57771-9] Goal Plan of Care Note [code = 21523-4] Goal Plan of Care Note [code = 82710-8] Goal Plan of Care Note [code = 85868-1] Goal Plan of Care Note [code = 76037-1] Goal Plan of Care Note [code = 87924-5] Goal Plan of Care Note [code = 67308-7] Goal Plan of Care Note [code = 98614-0] Goal Plan of Care Note [code = 23314-0] Encounters Start End Encounter Admission Attending Care Care Encounter Source Date/Time Date/Time Type Type Clinicians Facility Department ID 2021-08-16 Outpatient SYSTEM, [facility] [id number] 14:38:57 PROVIDER [place] 2021-06-26 Outpatient MAI Cheek [id number] Common 15:23:02 Lilliam 89865 Spirit - [facility] 2022-01-06 2022-01-06 Office Carlos, 1.2.840.1 [id number] Univers 13:15:00 14:15:01 Visit Meliton 01285.1.1 ity of 3.412.2.7 [place] .3.270222 .8 [facility] 2022-01-06 2022-01-06 Outpatient EL CARLOS, MDA MDA [id number] [id number] 13:02:13 14:15:01 MELITON tiwari 2022-01-06 2022-01-06 Ancillary Carlos, 1.2.840.1 [id number] [id number] Univers 12:00:00 12:15:00 Procedure Meliton 31973.1.1 it y of 3.412.2.7 [place] .3.761527 .8 [facility] 2022-01-06 2022-01-06 Ancillary Carlos, 1.2.840.1 [id number] 1095 [id number] [facility] 11:45:00 12:00:00 Procedure Meliton 50219.1.1 it y of 3.412.2.7 [place] .3.005135 .8 [facility] 2022-01-06 2022-01-06 Ancillary Carlos, 1.2.840.1 [id number] [id number] [facility] 11:30:00 11:45:00 Procedure Meliton 99989.1.1 it y of 3.412.2.7 [place] .3.282811 .8 [facility] 2022-01-06 2022-01-06 Outpatient EL CARLOS, MDA MDA [id number] 11:15:14 11:15:14 MELITON tiwari 2022-01-06 2022-01-06 Outpatient EL CARLOS, MDA MDA [id number] 11:15:01 11:15:01 MELITON tiwari 2022-01-06 2022-01-06 Outpatient EL CARLOS, MDA MDA [id number] 11:14:49 11:14:49 MELITON tiwari 2022-01-06 2022-01-06 Travel 1.2.840.1 1.2.701.484 [id number] [id number] Univers 00:00:00 00:00:00 43192.1.1 350.1.13.41 ity of 3.412.2.7 [place].7.3.698 [place] .3.8256[place] 084.8 MD Gaming [facility] 2022-01-03 2022-01-03 Ancillary Carlos, 1.2.840.1 [id number] [id number] [facility] 13:15:00 15:00:00 Procedure Meliton 33605.1.1 it y of 3.412.2.7 [place] .3.930891 MD Gaming [facility] 2022-01-03 2022-01-03 Outpatient JEAN PAUL GONZALEZ, [facility] [id number] 13:09:10 13:09:10 MELITONSHIRLEY Malik brice tiwari 2022-01-03 2022-01-03 Travel 1.2.840.1 1.2.495.807 [id number] [facility] 00:00:00 00:00:00 55717.1.1 350.1.13.41 ity of 3.412.2.7 [place]7.3.698 [place] .3.464159 084.8 MD Gaming [facility] 2022-01-01 2022-01-01 Outpatient 2mpdoh5r- [id number] [id number] [id number]-h 00:00:00 00:00:00 Visit rp94-2049 a18-4696-k -q3kn-ezc 9ff-ddef49 [id number] c7e0fe 2021-12-24 2021-12-24 Outpatient [id number]- [id number] 00:00:00 00:00:00 Visit 5729-5480 001-4101-8 -8556-11e [id number] [id number] 10baf6 2021-11-25 2021-11-25 Office JEAN PAUL Gonzalez 1.2.840.1 [id number] Univers 11:15:00 12:06:01 Visit Meliton 90449.1.1 ity of 3.412.2.7 [place] .3.889716 MD Gaming [facility] 2021-11-25 2021-11-25 Office Carlos, 1.2.840.1 [id number] Univers 11:15:00 12:06:01 Visit Meliton 56842.1.1 ity of 3.412.2.7 [place] .3.758701 MD Gaming [facility] 2021-11-25 2021-11-25 Travel 1.2.840.1 1.2.154.568 1314 [id number] Univers 00:00:00 00:00:00 84722.1.1 350.1.13.41 ity of 3.412.2.7 2.[place].7.3.698 [place] .3.790476 084.8 MD Gaming [facility] 2021-11-25 2021-11-25 Travel 1.2.840.1 1.2.580.149 8700 [id number] Univers 00:00:00 00:00:00 22625.1.1 350.1.13.41 ity of 3.412.2.7 [place].7.3.698 [place] .3.054728 084.8 MD Gaming [facility] 2021-11-18 2021-11-18 Ancillary JEAN PAUL Gonzalez, 1.2.840.1 [id number] 1091 [id number] Univers 06:15:00 08:00:00 Procedure Meliton 23138.1.1 it y of 3.412.2.7 [place] .3.335767 MD Gaming [facility] 2021-11-18 2021-11-18 Ancillary Carlos, 1.2.840.1 [id number] 1091 [id number] Univers 06:15:00 08:00:00 Procedure Meliton 06013.1.1 it y of 3.412.2.7 [place] .3.965694 MD Gaming [facility] 2021-11-18 2021-11-18 Travel 1.2.840.1 1.2.715.933 6622 [id number] Univers 00:00:00 00:00:00 60594.1.1 350.1.13.41 ity of 3.412.2.7 2.[place].7.3.698 [place] .3.752037 084.8 MD Blackman8 [facility] 2021-11-18 2021-11-18 Travel 1.2.840.1 1.2.929.431 0143 [id number] Univers 00:00:00 00:00:00 18516.1.1 350.1.13.41 ity of 3.412.2.7 2.[place].7.3.698 [place] .3.410543 084.8 MD Blackman8 [facility] 2021-08-28 2021-08-28 Ancillary JEAN PAUL Gonzalez, 1.2.840.1 [id number] 1091 [id number] Univers 20:00:00 20:05:00 Procedure Meliton 35626.1.1 it y of 3.412.2.7 [place] .3.495084 MD Blackman8 [facility] 2021-08-28 2021-08-28 Ancillary Carlos, 1.2.840.1 [id number] 1091 [id number] Univers 20:00:00 20:05:00 Procedure Meliton 47059.1.1 it y of 3.412.2.7 [place] .3.952341 MD Blackman8 [facility] 2021-08-19 2021-08-19 Ancillary JEAN PAUL Gonzalez, 1.2.840.1 [id number] 1091 [id number] Univers 20:10:00 20:15:00 Procedure Meliton 72265.1.1 it y of 3.412.2.7 [place] .3.661479 MD Blackman8 [facility] 2021-08-19 2021-08-19 Ancillary Carlos, 1.2.840.1 [id number] 1091 [id number] Univers 20:10:00 20:15:00 Procedure Meliton 97566.1.1 it y of 3.412.2.7 [place] .3.698691 MD Blackman8 [facility] 2021-08-19 2021-08-19 Ancillary EL Carlos, 1.2.840.1 [id number] 1091 [id number] Univers 20:05:00 20:10:00 Procedure Meliton 25550.1.1 it y of 3.412.2.7 [place] .3.503126 MD Blackman8 [facility] 2021-08-19 2021-08-19 Ancillary Carlos, 1.2.840.1 [id number] 1091 [id number] Univers 20:05:00 20:10:00 Procedure Meliton 24508.1.1 it y of 3.412.2.7 [place] .3.740255 MD Blackman8 [facility] 2021-08-19 2021-08-19 Ancillary EL Carlos, 1.2.840.1 [id number] 1091 [id number] Univers 20:00:00 20:05:00 Procedure Meliton 71445.1.1 it y of 3.412.2.7 [place] .3.583233 MD Blackman8 [facility] 2021-08-19 2021-08-19 Ancillary Carlos, 1.2.840.1 [id number] 1091 [id number] Univers 20:00:00 20:05:00 Procedure Meliton 47785.1.1 it y of 3.412.2.7 [place] .3.441186 MD Blackman8 [facility] 2021-08-19 2021-08-19 Ancillary EL Acrlos, 1.2.840.1 [id number] 1091 [id number] Univers 10:30:00 10:45:00 Procedure Meliton 53702.1.1 it y of 3.412.2.7 [place] .3.295301 MD Blackman8 [facility] 2021-08-19 2021-08-19 Ancillary Carlos, 1.2.840.1 [id number] 1091 [id number] Univers 10:30:00 10:45:00 Procedure Meliton 90771.1.1 it y of 3.412.2.7 [place] .3.322096 MD Blackman8 [facility] 2021-08-19 2021-08-19 Ancillary EL Carlos, 1.2.840.1 [id number] 1091 [id number] Univers 09:30:00 09:45:00 Procedure Meliton 44059.1.1 it y of 3.412.2.7 [place] .3Yehuda674531 MD Blackman8 [facility] 2021-08-19 2021-08-19 Ancillary Carlos, 1.2.840.1 [id number] 1091 [id number] Univers 09:30:00 09:45:00 Procedure Meliton 57319.1.1 it y of 3.412.2.7 [place] .3.608258 MD Blackman8 [facility] 2021-08-19 2021-08-19 Ancillary EL Carlos, 1.2.840.1 [id number] 1091 [id number] Univers 09:15:00 09:30:00 Procedure Meliton 42406.1.1 it y of 3.412.2.7 [place] .3Yehuda201663 MD Blackman8 [facility] 2021-08-19 2021-08-19 Ancillary Carlos, 1.2.840.1 [id number] 1091 [id number] Univers 09:15:00 09:30:00 Procedure Meliton 96323.1.1 it y of 3.412.2.7 [place] .3Yehuda036860 MD Blackman8 [facility] 2021-08-19 2021-08-19 Office EL Carlos, 1.2.840.1 [id number] Univers 08:00:00 09:22:03 Visit Meliton 87439.1.1 ity of 3.412.2.7 [place] .3Yehuda246711 MD Blackman8 [facility] 2021-08-19 2021-08-19 Office Carlos, 1.2.840.1 [id number] Univers 08:00:00 09:22:03 Visit Meliton 95176.1.1 ity of 3.412.2.7 [place] .3Yehuda939782 MD Blackman8 [facility] 2021-08-19 2021-08-19 Travel 1.2.840.1 1.2.711.845 6412 [id number] Univers 00:00:00 00:00:00 92346.1.1 350.1.13.41 ity of 3.412.2.7 2.[place].7.3.698 [place] .3.303611 084.8 MD Gaming [facility] 2021-08-19 2021-08-19 Travel 1.2.840.1 1.2.546.810 0652 [id number] Univers 00:00:00 00:00:00 59226.1.1 350.1.13.41 ity of 3.412.2.7 2.2.7.3.698 [place] .3.812519 084.8 MD Gaming [facility] 2021-08-16 2021-08-16 NPR EL Carlos, 1.2.840.1 [id number] Univers 11:00:00 12:41:52 Meliton 90915.1.1 ity of 3.412.2.7 [place] .3.625586 MD Gaming [facility] 2021-08-16 2021-08-16 NPR Carlos, 1.2.840.1 [id number] 0229 Univers 11:00:00 12:41:52 Meliton 43605.1.1 ity of 3.412.2.7 [place] .3.444413 MD Gaming [facility] 2021-08-14 2021-08-14 Travel 1.2.840.1 1.2.083.738 3545 [id number] Univers 00:00:00 00:00:00 95803.1.1 350.1.13.41 ity of 3.412.2.7 2.2.7.3.698 [place] .3.806670 084.8 MD Gaming [facility] 2021-08-14 2021-08-14 Travel 1.2.840.1 1.2.854.429 4246 [id number] Univers 00:00:00 00:00:00 51588.1.1 350.1.13.41 ity of 3.412.2.7 2.2.7.3.698 [place] .3.164022 084.8 MD Gaming [facility] Results Test Description Test Time Test Comments Results Result Comments Source SURGICAL PATHOLOGY REPORT 2022-01-06 13:16:35 Test Item Value Reference Range Interpretation Comme nts DIAGNOSIS: (test code = 8200) (NOTE) A) Shave Biopsy - Under breastSeborrheic keratosis, pigm ented and inflamed. MICROSCOPIC DESCRIPTION: (test (NOTE) A) A1-A2: Sections of all five portions code = 8210) of skin show ep idermalhyperplasia with pigmented kerat inocytes, horn pseudocysts,bas ketweave orthokeratosis, and an inflamma tory infiltratecomposed predominantly o f lymphocytes. No malignancy is s een. CLINICAL DATA: (test code = 8401) (NOTE) Not specified. GROSS DESCRIPTION: (test code = (NOTE) A) SPECIMEN LABELED: Under 8220) breastSIZE/WEIG HT: 0.3x0.2x0.1 to 0.9x0.8x0.1 cm RangeSPECIMEN COLOR: Parker-brownNUMBER OF TISSUE PIECES: 5SUBMITTED IN C ASSETTE(S): [id number]: FormalinCOMMENT S:Pigmented and rough lesion grossly appears to cover the majorityof the skin surface. The smallest three fragments are entirely submitted intact in A1. T he next largest fragment is bisected and entirely submitted inA2. The largest fra gment is trisected and entirely submit cristal in A3. PATHOLOGIST: (test code = 8250) (NOTE) Faby Penny, Board Certified in Anatomic and Cl inicalPathology, Subspecialty Aren janice Certified in Dermatopatholog y andCytopathology Specimens proce ssed at [facility], [address] [place] [address], Phone: , CLIA: [id number] i nterpreted at [facility] [address], [address] [place] [address], , CLIA:[id number] CPT: (test code = 8400) (NOTE) 8830 5 UNLESS OTHERWISE INDICATED, ALL TESTING PERFORM ED [facility], I [place]. [address] [place] [address] [facility] DIRECTOR: DARCI STEIN M.D. CLIA NUMBER [id number] [place] [id number] SURGICAL PATHOLOGY [id number] 00:00:00 Test Item Value Reference Range Interpretation Comments DIAGNOSIS: (test code = 8200) (NOTE) MICROSCOPIC DESCRIPTION: (test code = (NOTE) 8210) CLINICAL DATA: (test code = 8401) (NOTE) GROSS DESCRIPTION: (test code = 8220) (NOTE) PATHOLOGIST: (test code = 8250) (NOTE) CPT: (test code = 8400) (NOTE) SURGICAL PATHOLOGY [id number] 00:00:00 Test Item Value Reference Range Interpretation Comments DIAGNOSIS: (test code = 8200) (NOTE) MICROSCOPIC DESCRIPTION: (test code = (NOTE) 8210) CLINICAL DATA: (test code = 8401) (NOTE) GROSS DESCRIPTION: (test code = 8220) (NOTE) PATHOLOGIST: (test code = 8250) (NOTE) CPT: (test code = 8400) (NOTE) PAP TEST, THINPREP, [id number] 11:27:13 Test Item Value Reference Interpretation Comments Range SOURCE: (test code Endocervical = 8001) SLIDES: (test code 1 = 8011) LMP: (test code = 10/18/2021 8021) SPECIMEN ADEQUACY: (NOTE) Satisfac tory for (test code = 03199) evaluati on. Endocervical cells/transform ation zone component present. INTERPRETATION: ASCUS/EPITH. A -------- (test code = 37201) ABNORMALITY; SEE ---- BELOW ----- EPITHELIAL CELL ABNORMALITY Atypical squamo us cells of undetermined significance (ASC-US)------- ----- ----- ----- --- CHIEF ENGINEER WATERWORKS: Latha (test code = 8101) SEE Solano([facility] PATHOLOGIST Diann Safdar INTERPRETATION BY: (test code = 8122) LOCATION: (test (NOTE) Specimens pr ocessed code = 37680) at [facility], [address] [place] [address], , CLIA: [id number] 3and interpreted at [facility] , [address], Pathology Depar tment [address] [place], [id number], , CLIA: [id number] CPT: (test code = (NOTE) 14243, 881 41 UNLESS 8140) OTHERWISE INDIC ATED, COMPUTER AIDED AND CYTOTECHNOLOGIS T SCREENING PERFO RMED. The Pap test is a screening test with an inherent, bu t low probability of error. Your pat ient should be remin ded to consult you immediately if she experiences any suspicious sign s or symptoms, regar dless of her Pap test result. An alte rnate report format containing imag es or consolidated pr ior Pap history is available as applicable. PAP TEST, THINPREP, [id number] 00:00:00 Test Item Value Reference Range Interpretation Comments SOURCE: (test code = Endocervical 8001) SLIDES: (test code = 1 8011) LMP: (test code = 8021) 10/18/2021 SPECIMEN ADEQUACY: (test (NOTE) code = 95740) INTERPRETATION: (test ASCUS/EPITH. code = 72348) ABNORMALITY; SEE BELOW CHIEF ENGINEER WATERWORKS: (test Latha code = 8101) SEE [place](AS[facility] PATHOLOGIST Diann Toro INTERPRETATION BY: (test code = 8122) LOCATION: (test code = (NOTE) 56781) CPT: (test code = 8140) (NOTE) PAP TEST, THINPREP, [id number] 00:00:00 Test Item Value Reference Range Interpretation Comments SOURCE: (test code = Endocervical 8001) SLIDES: (test code = 1 8011) LMP: (test code = 8021) 10/18/2021 SPECIMEN ADEQUACY: (test (NOTE) code = 62402) INTERPRETATION: (test ASCUS/EPITH. code = 52077) ABNORMALITY; SEE BELOW CHIEF ENGINEER WATERWORKS: (test Latha code = 8101) SEE Solano(ASCP)[facility] PATHOLOGIST Diann Toro INTERPRETATION BY: (test code = 8122) LOCATION: (test code = (NOTE) 51801) CPT: (test code = 8140) (NOTE) PAP TEST, THINPREP, [id number] 00:00:00 Test Item Value Reference Range Interpretation Comments SOURCE: (test code = Endocervical 8001) SLIDES: (test code = 1 8011) LMP: (test code = 8021) 10/18/2021 SPECIMEN ADEQUACY: (test (NOTE) code = 70266) INTERPRETATION: (test ASCUS/EPITH. code = 63899) ABNORMALITY; SEE BELOW CHIEF ENGINEER WATERWORKS: (test Latha code = 8101) SEE [place](ASCP)[facility] PATHOLOGIST Diann Toro INTERPRETATION BY: (test code = 8122) LOCATION: (test code = (NOTE) 58528) CPT: (test code = 8140) (NOTE) PAP TEST, THINPREP, [id number] 00:00:00 Test Item Value Reference Range Interpretation Comments SOURCE: (test code = Endocervical 8001) SLIDES: (test code = 1 8011) LMP: (test code = 8021) 10/18/2021 SPECIMEN ADEQUACY: (test (NOTE) code = 02827) INTERPRETATION: (test ASCUS/EPITH. code = 80074) ABNORMALITY; SEE BELOW CHIEF ENGINEER WATERWORKS: (test Latha code = 8101) SEE [place](ASCP)[facility] PATHOLOGIST Diann Toro INTERPRETATION BY: (test code = 8122) LOCATION: (test code = (NOTE) 65679) CPT: (test code = 8140) (NOTE) CT/NG, TMA, [id number] 19:33:21 Test Item Value Reference Range Interpretation Comments GONORRHEA, TMA NEGATIVE NEGATIVE Assay method ology is (test code = nucleic acid am plification 31296) by transcriptio n mediated amplification ( TMA) utilizing the A ptima Combo 2 Assay. CHLAMYDIA, TMA NEGATIVE NEGATIVE Assay method ology is (test code = nucleic acid am plification 43404) by transcriptio n mediated amplification ( TMA) utilizing the A ptima Combo 2 Assay. HPV HIGH RISK WITH GENOTYPE, [id number] 16:11:32 Test Item Value Reference Range Interpretation Comments HPV HIGH RISK INTERP NEGATIVE NEGATIVE (test code = 84721) HPV 16 (test code = NEGATIVE 22518) HPV 18 (test code = NEGATIVE 10185) HPV, HR, OTHER NEGATIVE Testing meth odology is GENOTYPES (test code real-ti me PCR utilizing = 94012) hydrolysis prob es with the Sofia Carol Ann 4800 system. The karena t individually de tects genotypes 16 an d 18, as well as the oth er 12 high risk types (31,33,35,39,45 ,51,52,56 ,58,59,66,68). The expected result is negative. A neg ative result does not rule out the presence of HPV not included in the genotype set, a low leve l of infection or sp ecimen sampling error. UNLESS OTHERWISE INDIC ATED, ALL TESTING PERFORM ED [facility]. [address] [place] [address] LABORATORY DIRE CTOR: DARCI OKEEFE M.D. CLIA NUMBER [id number] [place] [id number] VAGINAL PATHOGENS DNA [id number] 09:43:06 Test Item Value Reference Range Interpretation Comments CINDY SPECIES (test NEGATIVE NEGATIVE code = ) G. VAGINALIS (test NEGATIVE NEGATIVE code = ) T. VAGINALIS (test NEGATIVE NEGATIVE UNLESS O THERWISE code = ) INDICATED, ALL TESTING PERFORMED [facility], [facility]. [address] [place] [address] 7875 4 LABORATORY DIRE CTOR: DARCI OKEEFE M.D. CLIA NUMBER [id number] [place] [id number] GC AND CHLAMYDIA AMPLIFIED, [id number] 00:00:00 Test Item Value Reference Range Interpretation Comments GONORRHEA, TMA (test code = 96624) NEGATIVE CHLAMYDIA, TMA (test code = 34676) NEGATIVE GC AND CHLAMYDIA AMPLIFIED, [id number] 00:00:00 Test Item Value Reference Range Interpretation Comments GONORRHEA, TMA (test code = 71545) NEGATIVE CHLAMYDIA, TMA (test code = 80891) NEGATIVE HPV HIGH RISK WITH GENOTYPE, [id number] 00:00:00 Test Item Value Reference Range Interpretation Comments HPV HIGH RISK INTERP (test code = NEGATIVE 08639) HPV 16 (test code = 01971) NEGATIVE HPV 18 (test code = 96791) NEGATIVE HPV, HR, OTHER GENOTYPES (test code NEGATIVE = 57359) HPV HIGH RISK WITH GENOTYPE, [id number] 00:00:00 Test Item Value Reference Range Interpretation Comments HPV HIGH RISK INTERP (test code = NEGATIVE 95793) HPV 16 (test code = 25719) NEGATIVE HPV 18 (test code = 36268) NEGATIVE HPV, HR, OTHER GENOTYPES (test code NEGATIVE = 61886) VAGINAL PATHOGENS DNA PANEL [ADDED]2021-11-12 00:00:00 Test Item Value Reference Range Interpretation Comments CINDY SPECIES (test code = ) NEGATIVE G. VAGINALIS (test code = 04642) NEGATIVE T. VAGINALIS (test code = 43076) NEGATIVE VAGINAL PATHOGENS DNA PANEL [ADDED]2021-11-12 00:00:00 Test Item Value Reference Range Interpretation Comments CINDY SPECIES (test code = ) NEGATIVE G. VAGINALIS (test code = 65251) NEGATIVE T. VAGINALIS (test code = 08910) NEGATIVE GC AND CHLAMYDIA AMPLIFIED, [id number] 00:00:00 Test Item Value Reference Range Interpretation Comments GONORRHEA, TMA (test code = 17093) NEGATIVE CHLAMYDIA, TMA (test code = 64798) NEGATIVE GC AND CHLAMYDIA AMPLIFIED, [id number] 00:00:00 Test Item Value Reference Range Interpretation Comments GONORRHEA, TMA (test code = 01663) NEGATIVE CHLAMYDIA, TMA (test code = 81305) NEGATIVE HPV HIGH RISK WITH GENOTYPE, [id number] 00:00:00 Test Item Value Reference Range Interpretation Comments HPV HIGH RISK INTERP (test code = NEGATIVE 79822) HPV 16 (test code = 64027) NEGATIVE HPV 18 (test code = 43761) NEGATIVE HPV, HR, OTHER GENOTYPES (test code NEGATIVE = 99164) HPV HIGH RISK WITH GENOTYPE, [id number] 00:00:00 Test Item Value Reference Range Interpretation Comments HPV HIGH RISK INTERP (test code = NEGATIVE 78584) HPV 16 (test code = 21968) NEGATIVE HPV 18 (test code = 67972) NEGATIVE HPV, HR, OTHER GENOTYPES (test code NEGATIVE = 25676) VAGINAL PATHOGENS DNA PANEL [ADDED]2021-11-12 00:00:00 Test Item Value Reference Range Interpretation Comments CINDY SPECIES (test code = ) NEGATIVE G. VAGINALIS (test code = ) NEGATIVE T. VAGINALIS (test code = ) NEGATIVE VAGINAL PATHOGENS DNA PANEL [ADDED]2021-11-12 00:00:00 Test Item Value Reference Range Interpretation Comments CINDY SPECIES (test code = ) NEGATIVE G. VAGINALIS (test code = ) NEGATIVE T. VAGINALIS (test code = ) NEGATIVE HEPATITIS PANEL, [id number] 05:44:10 Test Item Value Reference Range Interpretation Comments HEPATITIS A IgM (test NON-REACTIVE NON-REACTIVE code = 49823) HEPATITIS B CORE IgM NON-REACTIVE NON-REACTIVE (test code = 4644) HEPATITIS B SURF AG NON-REACTIVE NON-REACTIVE (test code = 2739) HEPATITIS C ANTIBODY NON-REACTIVE NON-REACTIVE (test code = 4675) INTERPRETATION (NOTE) Hepatitis A HEPATITIS A: (test code sero logy shows no = 2552) evidence of acu te hepatitis A. INTERPRETATION (NOTE) Hepatitis B HEPATITIS B: (test code sero logy shows no = 63890) evidence of acu te hepatitis B and no indication of exposure to hepatitis B vir us in the previous aurora eight months. INTERPRETATION (NOTE) Hepatitis C HEPATITIS C: (test code sero logy shows no = 87969) evidence of exposure to hepatitisC viru s at this time. I t can take up to 12 months after exposure tothe hepatitis C vir us for antibodies to become detectab le in the blood in certain patient s. HIV 1/2 4TH GEN, RFLX [id number] 05:44:10 Test Item Value Reference Range Interpretation Comments HIV 1/2 4TH GEN, RFLX CONF (test NON-REACTIVE NON-REACTIVE code = 3514) [id number] 03:19:15 Test Item Value Reference Range Interpretation Comments RPR RESULT (test code = NON-REACTIVE NON-REACTIVE 3501) RPR TITER (test code = 3500) NOT INDIC. TITER NOT INDIC. HEPATITIS PANEL, ACUTE [ADDED]2021-11-09 00:00:00 Test Item Value Reference Range Interpretation Comments HEPATITIS A IgM (test code = NON-REACTIVE 68597) HEPATITIS B CORE IgM (test code NON-REACTIVE = 4644) HEPATITIS B SURF AG (test code = NON-REACTIVE 2739) HEPATITIS C ANTIBODY (test code NON-REACTIVE = 4675) INTERPRETATION HEPATITIS A: (NOTE) (test code = 2552) INTERPRETATION HEPATITIS B: (NOTE) (test code = 94448) INTERPRETATION HEPATITIS C: (NOTE) (test code = 91344) HEPATITIS PANEL, ACUTE [ADDED]2021-11-09 00:00:00 Test Item Value Reference Range Interpretation Comments HEPATITIS A IgM (test code = NON-REACTIVE 31142) HEPATITIS B CORE IgM (test code NON-REACTIVE = 4644) HEPATITIS B SURF AG (test code = NON-REACTIVE 2739) HEPATITIS C ANTIBODY (test code NON-REACTIVE = 4675) INTERPRETATION HEPATITIS A: (NOTE) (test code = 2552) INTERPRETATION HEPATITIS B: (NOTE) (test code = 70145) INTERPRETATION HEPATITIS C: (NOTE) (test code = 96607) RPR [ADDED]2021-11-09 00:00:00 Test Item Value Reference Range Interpretation Comments RPR RESULT (test code = NON-REACTIVE 3501) RPR TITER (test code = 3500) NOT INDIC. TITER RPR [ADDED]2021-11-09 00:00:00 Test Item Value Reference Range Interpretation Comments RPR RESULT (test code = NON-REACTIVE 3501) RPR TITER (test code = 3500) NOT INDIC. TITER RPR [ADDED]2021-11-09 00:00:00 Test Item Value Reference Range Interpretation Comments RPR RESULT (test code = NON-REACTIVE 3501) RPR TITER (test code = 3500) NOT INDIC. TITER HIV 1/2 4TH GEN, RFLX CONF [ADDED]2021-11-09 00:00:00 Test Item Value Reference Range Interpretation Comments HIV 1/2 4TH GEN, RFLX CONF (test NON-REACTIVE code = 3514) HIV 1/2 4TH GEN, RFLX CONF [ADDED]2021-11-09 00:00:00 Test Item Value Reference Range Interpretation Comments HIV 1/2 4TH GEN, RFLX CONF (test NON-REACTIVE code = 3514) HEPATITIS PANEL, ACUTE [ADDED]2021-11-09 00:00:00 Test Item Value Reference Range Interpretation Comments HEPATITIS A IgM (test code = NON-REACTIVE 74057) HEPATITIS B CORE IgM (test code NON-REACTIVE = 4644) HEPATITIS B SURF AG (test code = NON-REACTIVE 2739) HEPATITIS C ANTIBODY (test code NON-REACTIVE = 4675) INTERPRETATION HEPATITIS A: (NOTE) (test code = 2552) INTERPRETATION HEPATITIS B: (NOTE) (test code = 30151) INTERPRETATION HEPATITIS C: (NOTE) (test code = 42148) HEPATITIS PANEL, ACUTE [ADDED]2021-11-09 00:00:00 Test Item Value Reference Range Interpretation Comments HEPATITIS A IgM (test code = NON-REACTIVE 55786) HEPATITIS B CORE IgM (test code NON-REACTIVE = 4644) HEPATITIS B SURF AG (test code = NON-REACTIVE 2739) HEPATITIS C ANTIBODY (test code NON-REACTIVE = 4675) INTERPRETATION HEPATITIS A: (NOTE) (test code = 2552) INTERPRETATION HEPATITIS B: (NOTE) (test code = 79630) INTERPRETATION HEPATITIS C: (NOTE) (test code = 33446) RPR [ADDED]2021-11-09 00:00:00 Test Item Value Reference Range Interpretation Comments RPR RESULT (test code = NON-REACTIVE 3501) RPR TITER (test code = 3500) NOT INDIC. TITER RPR [ADDED]2021-11-09 00:00:00 Test Item Value Reference Range Interpretation Comments RPR RESULT (test code = NON-REACTIVE 3501) RPR TITER (test code = 3500) NOT INDIC. TITER RPR [ADDED]2021-11-09 00:00:00 Test Item Value Reference Range Interpretation Comments RPR RESULT (test code = NON-REACTIVE 3501) RPR TITER (test code = 3500) NOT INDIC. TITER HIV 1/2 4TH GEN, RFLX CONF [ADDED]2021-11-09 00:00:00 Test Item Value Reference Range Interpretation Comments HIV 1/2 4TH GEN, RFLX CONF (test NON-REACTIVE code = 3514) HIV 1/2 4TH GEN, RFLX CONF [ADDED]2021-11-09 00:00:00 Test Item Value Reference Range Interpretation Comments HIV 1/2 4TH GEN, RFLX CONF (test NON-REACTIVE code = 3514) H. PYLORI (BREATH)2021-01-17 00:00:00 Test Item Value Reference Range Interpretation Comments H. PYLORI (BREATH) (test code = NEGATIVE 30601) H. PYLORI (BREATH)2021-01-17 00:00:00 Test Item Value Reference Range Interpretation Comments H. PYLORI (BREATH) (test code = NEGATIVE 88676) H. PYLORI (BREATH)2021-01-17 00:00:00 Test Item Value Reference Range Interpretation Comments H. PYLORI (BREATH) (test code = NEGATIVE 31468) H. PYLORI (BREATH)2021-01-17 00:00:00 Test Item Value Reference Range Interpretation Comments H. PYLORI (BREATH) (test code = NEGATIVE 57605) COMPREHENSIVE METABOLIC [id number] 00:00:00 Test Item Value Reference Range Interpretation Comments GLUCOSE (test code = 2217) 116 MG/DL BUN (test code = 2208) 11 MG/DL CREATININE (test code = 2214) 0.82 MG/DL eGFR AMER. (test code 101 ML/MIN/1.73 = 82899) eGFR NON- AMER. (test 87 ML/MIN/1.73 code = 94692) CALC BUN/CREAT (test code = 13 RATIO 2235) SODIUM (test code = 2231) 137 MEQ/L POTASSIUM (test code = 2228) 3.9 MEQ/L CHLORIDE (test code = 2215) 98 MEQ/L CARBON DIOXIDE (test code = 24 MEQ/L 2205) CALCIUM (test code = 2209) 9.8 MG/DL PROTEIN, TOTAL (test code = 7.6 G/DL 2228) ALBUMIN (test code = 2201) 4.5 G/DL CALC GLOBULIN (test code = 3.1 G/DL 2239) CALC A/G RATIO (test code = 1.5 RATIO 4) BILIRUBIN, TOTAL (test code = 0.2 MG/DL 2206) ALKALINE PHOSPHATASE (test 89 U/L code = 2204) AST (test code = 2218) 26 U/L ALT (test code = 2219) 25 U/L COMPREHENSIVE METABOLIC [id number] 00:00:00 Test Item Value Reference Range Interpretation Comments GLUCOSE (test code = 2217) 116 MG/DL BUN (test code = 2208) 11 MG/DL CREATININE (test code = 2214) 0.82 MG/DL eGFR AMER. (test code 101 ML/MIN/1.73 = 09971) eGFR NON- AMER. (test 87 ML/MIN/1.73 code = 91468) CALC BUN/CREAT (test code = 13 RATIO 2235) SODIUM (test code = 2231) 137 MEQ/L POTASSIUM (test code = 2228) 3.9 MEQ/L CHLORIDE (test code = 2215) 98 MEQ/L CARBON DIOXIDE (test code = 24 MEQ/L 2205) CALCIUM (test code = 2209) 9.8 MG/DL PROTEIN, TOTAL (test code = 7.6 G/DL 2228) ALBUMIN (test code = 2201) 4.5 G/DL CALC GLOBULIN (test code = 3.1 G/DL 2239) CALC A/G RATIO (test code = 1.5 RATIO 2234) BILIRUBIN, TOTAL (test code = 0.2 MG/DL 2206) ALKALINE PHOSPHATASE (test 89 U/L code = 2204) AST (test code = 2218) 26 U/L ALT (test code = 2219) 25 U/L LIPID [id number] 00:00:00 Test Item Value Reference Range Interpretation Comments CHOLESTEROL (test code = 2210) 171 MG/DL TRIGLYCERIDES (test code = 2232) 119 MG/DL HDL CHOLESTEROL (test code = 2220) 38 MG/DL CALC LDL CHOL (test code = 2237) 110 MG/DL RISK RATIO LDL/HDL (test code = 2.89 RATIO 2238) LIPID [id number] 00:00:00 Test Item Value Reference Range Interpretation Comments CHOLESTEROL (test code = 2210) 171 MG/DL TRIGLYCERIDES (test code = 2232) 119 MG/DL HDL CHOLESTEROL (test code = 2220) 38 MG/DL CALC LDL CHOL (test code = 2237) 110 MG/DL RISK RATIO LDL/HDL (test code = 2.89 RATIO 2238) COMPREHENSIVE METABOLIC [id number] 00:00:00 Test Item Value Reference Range Interpretation Comments GLUCOSE (test code = 2217) 116 MG/DL BUN (test code = 2208) 11 MG/DL CREATININE (test code = 2214) 0.82 MG/DL eGFR AMER. (test code 101 ML/MIN/1.73 = 26742) eGFR NON- AMER. (test 87 ML/MIN/1.73 code = 60502) CALC BUN/CREAT (test code = 13 RATIO 2235) SODIUM (test code = 2231) 137 MEQ/L POTASSIUM (test code = 2228) 3.9 MEQ/L CHLORIDE (test code = 2215) 98 MEQ/L CARBON DIOXIDE (test code = 24 MEQ/L 2205) CALCIUM (test code = 2209) 9.8 MG/DL PROTEIN, TOTAL (test code = 7.6 G/DL 222) ALBUMIN (test code = 2201) 4.5 G/DL CALC GLOBULIN (test code = 3.1 G/DL 2240) CALC A/G RATIO (test code = 1.5 RATIO 2234) BILIRUBIN, TOTAL (test code = 0.2 MG/DL 2207) ALKALINE PHOSPHATASE (test 89 U/L code = 2204) AST (test code = 2218) 26 U/L ALT (test code = 2219) 25 U/L COMPREHENSIVE METABOLIC [id number] 00:00:00 Test Item Value Reference Range Interpretation Comments GLUCOSE (test code = 2217) 116 MG/DL BUN (test code = 2208) 11 MG/DL CREATININE (test code = 2214) 0.82 MG/DL eGFR AMER. (test code 101 ML/MIN/1.73 = 32676) eGFR NON- AMER. (test 87 ML/MIN/1.73 code = 81305) CALC BUN/CREAT (test code = 13 RATIO 2235) SODIUM (test code = 2231) 137 MEQ/L POTASSIUM (test code = 2228) 3.9 MEQ/L CHLORIDE (test code = 2215) 98 MEQ/L CARBON DIOXIDE (test code = 24 MEQ/L 2206) CALCIUM (test code = 2209) 9.8 MG/DL PROTEIN, TOTAL (test code = 7.6 G/DL 9) ALBUMIN (test code = 2201) 4.5 G/DL CALC GLOBULIN (test code = 3.1 G/DL 2240) CALC A/G RATIO (test code = 1.5 RATIO 2234) BILIRUBIN, TOTAL (test code = 0.2 MG/DL 7) ALKALINE PHOSPHATASE (test 89 U/L code = 2204) AST (test code = 2218) 26 U/L ALT (test code = 2219) 25 U/L LIPID [id number] 00:00:00 Test Item Value Reference Range Interpretation Comments CHOLESTEROL (test code = 2210) 171 MG/DL TRIGLYCERIDES (test code = 2232) 119 MG/DL HDL CHOLESTEROL (test code = 2220) 38 MG/DL CALC LDL CHOL (test code = 2237) 110 MG/DL RISK RATIO LDL/HDL (test code = 2.89 RATIO 2238) LIPID [id number] 00:00:00 Test Item Value Reference Range Interpretation Comments CHOLESTEROL (test code = 2210) 171 MG/DL TRIGLYCERIDES (test code = 2232) 119 MG/DL HDL CHOLESTEROL (test code = 2220) 38 MG/DL CALC LDL CHOL (test code = 2237) 110 MG/DL RISK RATIO LDL/HDL (test code = 2.89 RATIO 2238) CBC W/AUTO [id number] 00:00:00 Test Item Value Reference Range Interpretation Comments WBC (test code = 1001) 8.4 K/UL RBC (test code = 1002) 4.46 M/UL HEMOGLOBIN (test code = 1003) 12.1 G/DL HEMATOCRIT (test code = 1004) 37.9 % MCV (test code = 1005) 85.0 fL MCH (test code = 1006) 27.1 PG MCHC (test code = 1007) 31.9 G/DL RDW (test code = 1038) 13.9 % NEUTROPHILS (test code = 1008) 53.3 % LYMPHOCYTES (test code = 1010) 36.3 % MONOCYTES (test code = 1011) 7.7 % EOSINOPHILS (test code = 1012) 2.3 % BASOPHILS (test code = 1013) 0.2 % IMMATURE GRANULOCYTES (test 0.2 % code = 1036) NUCLEATED RBCS (test code = 0.0 /100WBC'S 1065) PLATELET COUNT (test code = 354 K/UL 1015) ABSOLUTE NEUTROPHILS (test code 4.48 K/UL = 1066) ABSOLUTE LYMPHOCYTES (test code 3.05 K/UL = 1067) ABSOLUTE MONOCYTES (test code = 0.65 K/UL 1068) ABSOLUTE EOSINOPHILS (test code 0.19 K/UL = 1040) ABSOLUTE BASOPHILS (test code = 0.02 K/UL 1069) ABS IMMATURE GRANULOCYTES (test 0.02 K/UL code = 1020) ABS NUCLEATED RBCS (test code = 0.00 K/UL 04458) CBC W/AUTO [id number] 00:00:00 Test Item Value Reference Range Interpretation Comments WBC (test code = 1001) 8.4 K/UL RBC (test code = 1002) 4.46 M/UL HEMOGLOBIN (test code = 1003) 12.1 G/DL HEMATOCRIT (test code = 1004) 37.9 % MCV (test code = 1005) 85.0 fL MCH (test code = 1006) 27.1 PG MCHC (test code = 1007) 31.9 G/DL RDW (test code = 1038) 13.9 % NEUTROPHILS (test code = 1008) 53.3 % LYMPHOCYTES (test code = 1010) 36.3 % MONOCYTES (test code = 1011) 7.7 % EOSINOPHILS (test code = 1012) 2.3 % BASOPHILS (test code = 1013) 0.2 % IMMATURE GRANULOCYTES (test 0.2 % code = 1036) NUCLEATED RBCS (test code = 0.0 /100WBC'S 1065) PLATELET COUNT (test code = 354 K/UL 1015) ABSOLUTE NEUTROPHILS (test code 4.48 K/UL = 1066) ABSOLUTE LYMPHOCYTES (test code 3.05 K/UL = 1067) ABSOLUTE MONOCYTES (test code = 0.65 K/UL 1068) ABSOLUTE EOSINOPHILS (test code 0.19 K/UL = 1040) ABSOLUTE BASOPHILS (test code = 0.02 K/UL 1069) ABS IMMATURE GRANULOCYTES (test 0.02 K/UL code = 1020) ABS NUCLEATED RBCS (test code = 0.00 K/UL 78720) CBC W/AUTO [id number] 00:00:00 Test Item Value Reference Range Interpretation Comments WBC (test code = 1001) 8.4 K/UL RBC (test code = 1002) 4.46 M/UL HEMOGLOBIN (test code = 1003) 12.1 G/DL HEMATOCRIT (test code = 1004) 37.9 % MCV (test code = 1005) 85.0 fL MCH (test code = 1006) 27.1 PG MCHC (test code = 1007) 31.9 G/DL RDW (test code = 1038) 13.9 % NEUTROPHILS (test code = 1008) 53.3 % LYMPHOCYTES (test code = 1010) 36.3 % MONOCYTES (test code = 1011) 7.7 % EOSINOPHILS (test code = 1012) 2.3 % BASOPHILS (test code = 1013) 0.2 % IMMATURE GRANULOCYTES (test 0.2 % code = 1036) NUCLEATED RBCS (test code = 0.0 /100WBC'S 1065) PLATELET COUNT (test code = 354 K/UL 1015) ABSOLUTE NEUTROPHILS (test code 4.48 K/UL = 1066) ABSOLUTE LYMPHOCYTES (test code 3.05 K/UL = 1067) ABSOLUTE MONOCYTES (test code = 0.65 K/UL 1068) ABSOLUTE EOSINOPHILS (test code 0.19 K/UL = 1040) ABSOLUTE BASOPHILS (test code = 0.02 K/UL 1069) ABS IMMATURE GRANULOCYTES (test 0.02 K/UL code = 1020) ABS NUCLEATED RBCS (test code = 0.00 K/UL 05824) CBC W/AUTO [id number] 00:00:00 Test Item Value Reference Range Interpretation Comments WBC (test code = 1001) 8.4 K/UL RBC (test code = 1002) 4.46 M/UL HEMOGLOBIN (test code = 1003) 12.1 G/DL HEMATOCRIT (test code = 1004) 37.9 % MCV (test code = 1005) 85.0 fL MCH (test code = 1006) 27.1 PG MCHC (test code = 1007) 31.9 G/DL RDW (test code = 1038) 13.9 % NEUTROPHILS (test code = 1008) 53.3 % LYMPHOCYTES (test code = 1010) 36.3 % MONOCYTES (test code = 1011) 7.7 % EOSINOPHILS (test code = 1012) 2.3 % BASOPHILS (test code = 1013) 0.2 % IMMATURE GRANULOCYTES (test 0.2 % code = 1036) NUCLEATED RBCS (test code = 0.0 /100WBC'S 1065) PLATELET COUNT (test code = 354 K/UL 1015) ABSOLUTE NEUTROPHILS (test code 4.48 K/UL = 1066) ABSOLUTE LYMPHOCYTES (test code 3.05 K/UL = 1067) ABSOLUTE MONOCYTES (test code = 0.65 K/UL 1068) ABSOLUTE EOSINOPHILS (test code 0.19 K/UL = 1040) ABSOLUTE BASOPHILS (test code = 0.02 K/UL 1069) ABS IMMATURE GRANULOCYTES (test 0.02 K/UL code = 1020) ABS NUCLEATED RBCS (test code = 0.00 K/UL 87312) CBC W/AUTO [id number] 00:00:00 Test Item Value Reference Range Interpretation Comments WBC (test code = 1001) 8.4 K/UL RBC (test code = 1002) 4.46 M/UL HEMOGLOBIN (test code = 1003) 12.1 G/DL HEMATOCRIT (test code = 1004) 37.9 % MCV (test code = 1005) 85.0 fL MCH (test code = 1006) 27.1 PG MCHC (test code = 1007) 31.9 G/DL RDW (test code = 1038) 13.9 % NEUTROPHILS (test code = 1008) 53.3 % LYMPHOCYTES (test code = 1010) 36.3 % MONOCYTES (test code = 1011) 7.7 % EOSINOPHILS (test code = 1012) 2.3 % BASOPHILS (test code = 1013) 0.2 % IMMATURE GRANULOCYTES (test 0.2 % code = 1036) NUCLEATED RBCS (test code = 0.0 /100WBC'S 1065) PLATELET COUNT (test code = 354 K/UL 1015) ABSOLUTE NEUTROPHILS (test code 4.48 K/UL = 1066) ABSOLUTE LYMPHOCYTES (test code 3.05 K/UL = 1067) ABSOLUTE MONOCYTES (test code = 0.65 K/UL 1068) ABSOLUTE EOSINOPHILS (test code 0.19 K/UL = 1040) ABSOLUTE BASOPHILS (test code = 0.02 K/UL 1069) ABS IMMATURE GRANULOCYTES (test 0.02 K/UL code = 1020) ABS NUCLEATED RBCS (test code = 0.00 K/UL 85538) CBC W/AUTO [id number] 00:00:00 Test Item Value Reference Range Interpretation Comments WBC (test code = 1001) 8.4 K/UL RBC (test code = 1002) 4.46 M/UL HEMOGLOBIN (test code = 1003) 12.1 G/DL HEMATOCRIT (test code = 1004) 37.9 % MCV (test code = 1005) 85.0 fL MCH (test code = 1006) 27.1 PG MCHC (test code = 1007) 31.9 G/DL RDW (test code = 1038) 13.9 % NEUTROPHILS (test code = 1008) 53.3 % LYMPHOCYTES (test code = 1010) 36.3 % MONOCYTES (test code = 1011) 7.7 % EOSINOPHILS (test code = 1012) 2.3 % BASOPHILS (test code = 1013) 0.2 % IMMATURE GRANULOCYTES (test 0.2 % code = 1036) NUCLEATED RBCS (test code = 0.0 /100WBC'S 1065) PLATELET COUNT (test code = 354 K/UL 1015) ABSOLUTE NEUTROPHILS (test code 4.48 K/UL = 1066) ABSOLUTE LYMPHOCYTES (test code 3.05 K/UL = 1067) ABSOLUTE MONOCYTES (test code = 0.65 K/UL 1068) ABSOLUTE EOSINOPHILS (test code 0.19 K/UL = 1040) ABSOLUTE BASOPHILS (test code = 0.02 K/UL 1069) ABS IMMATURE GRANULOCYTES (test 0.02 K/UL code = 1020) ABS NUCLEATED RBCS (test code = 0.00 K/UL 79884) CULTURE, URINE [ADDED]2019-10-31 00:00:00 Test Item Value Reference Range Interpretation Comments CULTURE, URINE (test SPECIMEN NUMBER: code = 89864) [id number] CULTURE, URINE [ADDED]2019-10-31 00:00:00 Test Item Value Reference Range Interpretation Comments CULTURE, URINE (test SPECIMEN NUMBER: code = 52834) [id number] CULTURE, URINE [ADDED]2019-10-31 00:00:00 Test Item Value Reference Range Interpretation Comments CULTURE, URINE (test SPECIMEN NUMBER: code = 17215) [id number] CULTURE, URINE [ADDED]2019-10-31 00:00:00 Test Item Value Reference Range Interpretation Comments CULTURE, URINE (test SPECIMEN NUMBER: code = 22050) [id number] COMPREHENSIVE METABOLIC [id number] 00:00:00 Test Item Value Reference Range Interpretation Comments GLUCOSE (test code = 2217) 94 MG/DL BUN (test code = 2208) 7 MG/DL CREATININE (test code = 2214) 0.68 MG/DL eGFR AMER. (test code 124 ML/MIN/1.73 = 34452) eGFR NON- AMER. (test 107 ML/MIN/1.73 code = 22836) CALC BUN/CREAT (test code = 10 RATIO 2235) SODIUM (test code = 2231) 138 MEQ/L POTASSIUM (test code = 2228) 4.2 MEQ/L CHLORIDE (test code = 2215) 103 MEQ/L CARBON DIOXIDE (test code = 25 MEQ/L 2205) CALCIUM (test code = 2209) 9.3 MG/DL PROTEIN, TOTAL (test code = 7.3 G/DL 2228) ALBUMIN (test code = 2201) 4.6 G/DL CALC GLOBULIN (test code = 2.7 G/DL 2239) CALC A/G RATIO (test code = 1.7 RATIO 2234) BILIRUBIN, TOTAL (test code = <0.2 MG/DL 2206) ALKALINE PHOSPHATASE (test 86 U/L code = 2204) AST (test code = 2218) 14 U/L ALT (test code = 2219) 23 U/L COMPREHENSIVE METABOLIC [id number] 00:00:00 Test Item Value Reference Range Interpretation Comments GLUCOSE (test code = 2217) 94 MG/DL BUN (test code = 2208) 7 MG/DL CREATININE (test code = 2214) 0.68 MG/DL eGFR AMER. (test code 124 ML/MIN/1.73 = 08869) eGFR NON- AMER. (test 107 ML/MIN/1.73 code = 63194) CALC BUN/CREAT (test code = 10 RATIO 2235) SODIUM (test code = 2231) 138 MEQ/L POTASSIUM (test code = 2228) 4.2 MEQ/L CHLORIDE (test code = 2215) 103 MEQ/L CARBON DIOXIDE (test code = 25 MEQ/L 2205) CALCIUM (test code = 2209) 9.3 MG/DL PROTEIN, TOTAL (test code = 7.3 G/DL 2228) ALBUMIN (test code = 2201) 4.6 G/DL CALC GLOBULIN (test code = 2.7 G/DL 2240) CALC A/G RATIO (test code = 1.7 RATIO 2234) BILIRUBIN, TOTAL (test code = <0.2 MG/DL 2206) ALKALINE PHOSPHATASE (test 86 U/L code = 2204) AST (test code = 2218) 14 U/L ALT (test code = 2219) 23 U/L HEMOGLOBIN [id number] 00:00:00 Test Item Value Reference Range Interpretation Comments HEMOGLOBIN A1c (test code = 60293) 5.5 % HEMOGLOBIN [id number] 00:00:00 Test Item Value Reference Range Interpretation Comments HEMOGLOBIN A1c (test code = 32137) 5.5 % HEMOGLOBIN [id number] 00:00:00 Test Item Value Reference Range Interpretation Comments HEMOGLOBIN A1c (test code = 59503) 5.5 % COMPREHENSIVE METABOLIC [id number] 00:00:00 Test Item Value Reference Range Interpretation Comments GLUCOSE (test code = 2217) 94 MG/DL BUN (test code = 2208) 7 MG/DL CREATININE (test code = 2214) 0.68 MG/DL eGFR AMER. (test code 124 ML/MIN/1.73 = 23473) eGFR NON- AMER. (test 107 ML/MIN/1.73 code = 77173) CALC BUN/CREAT (test code = 10 RATIO 2235) SODIUM (test code = 2231) 138 MEQ/L POTASSIUM (test code = 2228) 4.2 MEQ/L CHLORIDE (test code = 2215) 103 MEQ/L CARBON DIOXIDE (test code = 25 MEQ/L 220) CALCIUM (test code = 2209) 9.3 MG/DL PROTEIN, TOTAL (test code = 7.3 G/DL 2228) ALBUMIN (test code = 2201) 4.6 G/DL CALC GLOBULIN (test code = 2.7 G/DL 2240) CALC A/G RATIO (test code = 1.7 RATIO 2234) BILIRUBIN, TOTAL (test code = <0.2 MG/DL 2206) ALKALINE PHOSPHATASE (test 86 U/L code = 2204) AST (test code = 2218) 14 U/L ALT (test code = 2219) 23 U/L COMPREHENSIVE METABOLIC [id number] 00:00:00 Test Item Value Reference Range Interpretation Comments GLUCOSE (test code = 2217) 94 MG/DL BUN (test code = 2208) 7 MG/DL CREATININE (test code = 2214) 0.68 MG/DL eGFR AMER. (test code 124 ML/MIN/1.73 = 72615) eGFR NON- AMER. (test 107 ML/MIN/1.73 code = 82694) CALC BUN/CREAT (test code = 10 RATIO 2235) SODIUM (test code = 2231) 138 MEQ/L POTASSIUM (test code = 2228) 4.2 MEQ/L CHLORIDE (test code = 2215) 103 MEQ/L CARBON DIOXIDE (test code = 25 MEQ/L 2206) CALCIUM (test code = 2209) 9.3 MG/DL PROTEIN, TOTAL (test code = 7.3 G/DL 2228) ALBUMIN (test code = 2201) 4.6 G/DL CALC GLOBULIN (test code = 2.7 G/DL 2240) CALC A/G RATIO (test code = 1.7 RATIO 2234) BILIRUBIN, TOTAL (test code = <0.2 MG/DL 2207) ALKALINE PHOSPHATASE (test 86 U/L code = 2204) AST (test code = 2218) 14 U/L ALT (test code = 2219) 23 U/L HEMOGLOBIN [id number] 00:00:00 Test Item Value Reference Range Interpretation Comments HEMOGLOBIN A1c (test code = 60363) 5.5 % HEMOGLOBIN [id number] 00:00:00 Test Item Value Reference Range Interpretation Comments HEMOGLOBIN A1c (test code = 67099) 5.5 % HEMOGLOBIN [id number] 00:00:00 Test Item Value Reference Range Interpretation Comments HEMOGLOBIN A1c (test code = 23490) 5.5 % VAGINAL PATHOGENS DNA [id number] 00:00:00 Test Item Value Reference Range Interpretation Comments CINDY SPECIES (test code = 92722) POSITIVE G. VAGINALIS (test code = 84479) NEGATIVE T. VAGINALIS (test code = 50041) NEGATIVE VAGINAL PATHOGENS DNA [id number] 00:00:00 Test Item Value Reference Range Interpretation Comments CINDY SPECIES (test code = 45969) POSITIVE G. VAGINALIS (test code = 21065) NEGATIVE T. VAGINALIS (test code = 59959) NEGATIVE VAGINAL PATHOGENS DNA [id number] 00:00:00 Test Item Value Reference Range Interpretation Comments CINDY SPECIES (test code = 73853) POSITIVE G. VAGINALIS (test code = 59053) NEGATIVE T. VAGINALIS (test code = 29528) NEGATIVE VAGINAL PATHOGENS DNA [id number] 00:00:00 Test Item Value Reference Range Interpretation Comments CINDY SPECIES (test code = 12606) POSITIVE G. VAGINALIS (test code = 30896) NEGATIVE T. VAGINALIS (test code = 77329) NEGATIVE H. PYLORI (BREATH)2018-12-04 00:00:00 Test Item Value Reference Range Interpretation Comments H. PYLORI (BREATH) (test code = POSITIVE 80184) H. PYLORI (BREATH)2018-12-04 00:00:00 Test Item Value Reference Range Interpretation Comments H. PYLORI (BREATH) (test code = POSITIVE 26036) H. PYLORI (BREATH)2018-12-04 00:00:00 Test Item Value Reference Range Interpretation Comments H. PYLORI (BREATH) (test code = POSITIVE 66938) H. PYLORI (BREATH)2018-12-04 00:00:00 Test Item Value Reference Range Interpretation Comments H. PYLORI (BREATH) (test code = POSITIVE 34021) URINALYSIS (CULTURE IF INDICATED)2018-11-21 00:00:00 Test Item Value Reference Range Interpretation Comments COLOR (test code = 1501) JAD APPEARANCE (test code = 1502) SLIGHTLY CLOUDY SPECIFIC GRAVITY (test code = 1.029 1503) LEUKOCYTE ESTERASE (test code NEGATIVE = 1504) NITRITE (test code = 1505) NEGATIVE pH (test code = 1506) 6.0 PROTEIN (test code = 1507) NEGATIVE GLUCOSE (test code = 1508) NEGATIVE KETONES (test code = 1509) TRACE UROBILINOGEN (test code = <2.0 MG/DL 1510) BILIRUBIN (test code = 1511) NEGATIVE OCCULT BLOOD (test code = NEGATIVE 1512) URINALYSIS (CULTURE IF INDICATED)2018-11-21 00:00:00 Test Item Value Reference Range Interpretation Comments COLOR (test code = 1501) JAD APPEARANCE (test code = 1502) SLIGHTLY CLOUDY SPECIFIC GRAVITY (test code = 1.029 1503) LEUKOCYTE ESTERASE (test code NEGATIVE = 1504) NITRITE (test code = 1505) NEGATIVE pH (test code = 1506) 6.0 PROTEIN (test code = 1507) NEGATIVE GLUCOSE (test code = 1508) NEGATIVE KETONES (test code = 1509) TRACE UROBILINOGEN (test code = <2.0 MG/DL 1510) BILIRUBIN (test code = 1511) NEGATIVE OCCULT BLOOD (test code = NEGATIVE 1512) URINALYSIS (CULTURE IF INDICATED)2018-11-21 00:00:00 Test Item Value Reference Range Interpretation Comments COLOR (test code = 1501) JAD APPEARANCE (test code = 1502) SLIGHTLY CLOUDY SPECIFIC GRAVITY (test code = 1.029 1503) LEUKOCYTE ESTERASE (test code NEGATIVE = 1504) NITRITE (test code = 1505) NEGATIVE pH (test code = 1506) 6.0 PROTEIN (test code = 1507) NEGATIVE GLUCOSE (test code = 1508) NEGATIVE KETONES (test code = 1509) TRACE UROBILINOGEN (test code = <2.0 MG/DL 1510) BILIRUBIN (test code = 1511) NEGATIVE OCCULT BLOOD (test code = NEGATIVE 1512) URINALYSIS (CULTURE IF INDICATED)2018-11-21 00:00:00 Test Item Value Reference Range Interpretation Comments COLOR (test code = 1501) JAD APPEARANCE (test code = 1502) SLIGHTLY CLOUDY SPECIFIC GRAVITY (test code = 1.029 1503) LEUKOCYTE ESTERASE (test code NEGATIVE = 1504) NITRITE (test code = 1505) NEGATIVE pH (test code = 1506) 6.0 PROTEIN (test code = 1507) NEGATIVE GLUCOSE (test code = 1508) NEGATIVE KETONES (test code = 1509) TRACE UROBILINOGEN (test code = <2.0 MG/DL 1510) BILIRUBIN (test code = 1511) NEGATIVE OCCULT BLOOD (test code = NEGATIVE 1512) CBC W/AUTO [id number] 00:00:00 Test Item Value Reference Range Interpretation Comments WBC (test code = 1001) 10.6 K/UL RBC (test code = 1002) 4.82 M/UL HEMOGLOBIN (test code = 1003) 13.6 G/DL HEMATOCRIT (test code = 1004) 40.9 % MCV (test code = 1005) 84.9 fL MCH (test code = 1006) 28.2 PG MCHC (test code = 1007) 33.3 G/DL RDW (test code = 1038) 13.5 % NEUTROPHILS (test code = 1008) 64.7 % LYMPHOCYTES (test code = 1010) 28.2 % MONOCYTES (test code = 1011) 5.3 % EOSINOPHILS (test code = 1012) 1.5 % BASOPHILS (test code = 1013) 0.3 % PLATELET COUNT (test code = 1015) 352 K/UL CBC W/AUTO [id number] 00:00:00 Test Item Value Reference Range Interpretation Comments WBC (test code = 1001) 10.6 K/UL RBC (test code = 1002) 4.82 M/UL HEMOGLOBIN (test code = 1003) 13.6 G/DL HEMATOCRIT (test code = 1004) 40.9 % MCV (test code = 1005) 84.9 fL MCH (test code = 1006) 28.2 PG MCHC (test code = 1007) 33.3 G/DL RDW (test code = 1038) 13.5 % NEUTROPHILS (test code = 1008) 64.7 % LYMPHOCYTES (test code = 1010) 28.2 % MONOCYTES (test code = 1011) 5.3 % EOSINOPHILS (test code = 1012) 1.5 % BASOPHILS (test code = 1013) 0.3 % PLATELET COUNT (test code = 1015) 352 K/UL CBC W/AUTO [id number] 00:00:00 Test Item Value Reference Range Interpretation Comments WBC (test code = 1001) 10.6 K/UL RBC (test code = 1002) 4.82 M/UL HEMOGLOBIN (test code = 1003) 13.6 G/DL HEMATOCRIT (test code = 1004) 40.9 % MCV (test code = 1005) 84.9 fL MCH (test code = 1006) 28.2 PG MCHC (test code = 1007) 33.3 G/DL RDW (test code = 1038) 13.5 % NEUTROPHILS (test code = 1008) 64.7 % LYMPHOCYTES (test code = 1010) 28.2 % MONOCYTES (test code = 1011) 5.3 % EOSINOPHILS (test code = 1012) 1.5 % BASOPHILS (test code = 1013) 0.3 % PLATELET COUNT (test code = 1015) 352 K/UL LIPID [id number] 00:00:00 Test Item Value Reference Range Interpretation Comments CHOLESTEROL (test code = 2210) 159 MG/DL TRIGLYCERIDES (test code = 2232) 188 MG/DL HDL CHOLESTEROL (test code = 2220) 27 MG/DL CALC LDL CHOL (test code = 2237) 94 MG/DL RISK RATIO LDL/HDL (test code = 3.50 RATIO 2238) LIPID [id number] 00:00:00 Test Item Value Reference Range Interpretation Comments CHOLESTEROL (test code = 2210) 159 MG/DL TRIGLYCERIDES (test code = 2232) 188 MG/DL HDL CHOLESTEROL (test code = 2220) 27 MG/DL CALC LDL CHOL (test code = 2237) 94 MG/DL RISK RATIO LDL/HDL (test code = 3.50 RATIO 2238) HEMOGLOBIN [id number] 00:00:00 Test Item Value Reference Range Interpretation Comments HEMOGLOBIN A1c (test code = 60744) 5.5 % HEMOGLOBIN [id number] 00:00:00 Test Item Value Reference Range Interpretation Comments HEMOGLOBIN A1c (test code = 36772) 5.5 % HEMOGLOBIN [id number] 00:00:00 Test Item Value Reference Range Interpretation Comments HEMOGLOBIN A1c (test code = 59065) 5.5 % COMPREHENSIVE METABOLIC [id number] 00:00:00 Test Item Value Reference Range Interpretation Comments GLUCOSE (test code = 2217) 96 MG/DL BUN (test code = 2208) 7 MG/DL CREATININE (test code = 2214) 0.66 MG/DL eGFR AMER. (test code 126 ML/MIN/1.73 = 25099) eGFR NON- AMER. (test 109 ML/MIN/1.73 code = 41602) CALC BUN/CREAT (test code = 11 RATIO 2235) SODIUM (test code = 2231) 139 MEQ/L POTASSIUM (test code = 2228) 4.5 MEQ/L CHLORIDE (test code = 2215) 99 MEQ/L CARBON DIOXIDE (test code = 28 MEQ/L 220) CALCIUM (test code = 2209) 9.4 MG/DL PROTEIN, TOTAL (test code = 7.4 G/DL 2228) ALBUMIN (test code = 2201) 4.4 G/DL CALC GLOBULIN (test code = 3.0 G/DL 2240) CALC A/G RATIO (test code = 1.5 RATIO 2234) BILIRUBIN, TOTAL (test code = 0.2 MG/DL 2206) ALKALINE PHOSPHATASE (test 76 U/L code = 2204) AST (test code = 2218) 20 U/L ALT (test code = 2219) 19 U/L COMPREHENSIVE METABOLIC [id number] 00:00:00 Test Item Value Reference Range Interpretation Comments GLUCOSE (test code = 2217) 96 MG/DL BUN (test code = 2208) 7 MG/DL CREATININE (test code = 2214) 0.66 MG/DL eGFR AMER. (test code 126 ML/MIN/1.73 = 21282) eGFR NON- AMER. (test 109 ML/MIN/1.73 code = 03149) CALC BUN/CREAT (test code = 11 RATIO 2235) SODIUM (test code = 2231) 139 MEQ/L POTASSIUM (test code = 2228) 4.5 MEQ/L CHLORIDE (test code = 2215) 99 MEQ/L CARBON DIOXIDE (test code = 28 MEQ/L 2206) CALCIUM (test code = 2209) 9.4 MG/DL PROTEIN, TOTAL (test code = 7.4 G/DL 2228) ALBUMIN (test code = 2201) 4.4 G/DL CALC GLOBULIN (test code = 3.0 G/DL 2240) CALC A/G RATIO (test code = 1.5 RATIO 2234) BILIRUBIN, TOTAL (test code = 0.2 MG/DL 7) ALKALINE PHOSPHATASE (test 76 U/L code = 2204) AST (test code = 2218) 20 U/L ALT (test code = 2219) 19 U/L [id number] 00:00:00 Test Item Value Reference Range Interpretation Comments TSH, THIRD GENERATION (test code 1.140 UIU/ML = 2821) [id number] 00:00:00 Test Item Value Reference Range Interpretation Comments TSH, THIRD GENERATION (test code 1.140 UIU/ML = 2821) [id number] 00:00:00 Test Item Value Reference Range Interpretation Comments TSH, THIRD GENERATION (test code 1.140 UIU/ML = 2821) CBC W/AUTO [id number] 00:00:00 Test Item Value Reference Range Interpretation Comments WBC (test code = 1001) 10.6 K/UL RBC (test code = 1002) 4.82 M/UL HEMOGLOBIN (test code = 1003) 13.6 G/DL HEMATOCRIT (test code = 1004) 40.9 % MCV (test code = 1005) 84.9 fL MCH (test code = 1006) 28.2 PG MCHC (test code = 1007) 33.3 G/DL RDW (test code = 1038) 13.5 % NEUTROPHILS (test code = 1008) 64.7 % LYMPHOCYTES (test code = 1010) 28.2 % MONOCYTES (test code = 1011) 5.3 % EOSINOPHILS (test code = 1012) 1.5 % BASOPHILS (test code = 1013) 0.3 % PLATELET COUNT (test code = 1015) 352 K/UL CBC W/AUTO [id number] 00:00:00 Test Item Value Reference Range Interpretation Comments WBC (test code = 1001) 10.6 K/UL RBC (test code = 1002) 4.82 M/UL HEMOGLOBIN (test code = 1003) 13.6 G/DL HEMATOCRIT (test code = 1004) 40.9 % MCV (test code = 1005) 84.9 fL MCH (test code = 1006) 28.2 PG MCHC (test code = 1007) 33.3 G/DL RDW (test code = 1038) 13.5 % NEUTROPHILS (test code = 1008) 64.7 % LYMPHOCYTES (test code = 1010) 28.2 % MONOCYTES (test code = 1011) 5.3 % EOSINOPHILS (test code = 1012) 1.5 % BASOPHILS (test code = 1013) 0.3 % PLATELET COUNT (test code = 1015) 352 K/UL CBC W/AUTO [id number] 00:00:00 Test Item Value Reference Range Interpretation Comments WBC (test code = 1001) 10.6 K/UL RBC (test code = 1002) 4.82 M/UL HEMOGLOBIN (test code = 1003) 13.6 G/DL HEMATOCRIT (test code = 1004) 40.9 % MCV (test code = 1005) 84.9 fL MCH (test code = 1006) 28.2 PG MCHC (test code = 1007) 33.3 G/DL RDW (test code = 1038) 13.5 % NEUTROPHILS (test code = 1008) 64.7 % LYMPHOCYTES (test code = 1010) 28.2 % MONOCYTES (test code = 1011) 5.3 % EOSINOPHILS (test code = 1012) 1.5 % BASOPHILS (test code = 1013) 0.3 % PLATELET COUNT (test code = 1015) 352 K/UL LIPID [id number] 00:00:00 Test Item Value Reference Range Interpretation Comments CHOLESTEROL (test code = 2210) 159 MG/DL TRIGLYCERIDES (test code = 2232) 188 MG/DL HDL CHOLESTEROL (test code = 2220) 27 MG/DL CALC LDL CHOL (test code = 2237) 94 MG/DL RISK RATIO LDL/HDL (test code = 3.50 RATIO 2238) LIPID [id number] 00:00:00 Test Item Value Reference Range Interpretation Comments CHOLESTEROL (test code = 2210) 159 MG/DL TRIGLYCERIDES (test code = 2232) 188 MG/DL HDL CHOLESTEROL (test code = 2220) 27 MG/DL CALC LDL CHOL (test code = 2237) 94 MG/DL RISK RATIO LDL/HDL (test code = 3.50 RATIO 2238) HEMOGLOBIN [id number] 00:00:00 Test Item Value Reference Range Interpretation Comments HEMOGLOBIN A1c (test code = 97521) 5.5 % HEMOGLOBIN [id number] 00:00:00 Test Item Value Reference Range Interpretation Comments HEMOGLOBIN A1c (test code = 94530) 5.5 % HEMOGLOBIN [id number] 00:00:00 Test Item Value Reference Range Interpretation Comments HEMOGLOBIN A1c (test code = 76923) 5.5 % COMPREHENSIVE METABOLIC [id number] 00:00:00 Test Item Value Reference Range Interpretation Comments GLUCOSE (test code = 2217) 96 MG/DL BUN (test code = 2208) 7 MG/DL CREATININE (test code = 2214) 0.66 MG/DL eGFR AMER. (test code 126 ML/MIN/1.73 = 93150) eGFR NON- AMER. (test 109 ML/MIN/1.73 code = 16875) CALC BUN/CREAT (test code = 11 RATIO 2235) SODIUM (test code = 2231) 139 MEQ/L POTASSIUM (test code = 2228) 4.5 MEQ/L CHLORIDE (test code = 2215) 99 MEQ/L CARBON DIOXIDE (test code = 28 MEQ/L 2205) CALCIUM (test code = 2209) 9.4 MG/DL PROTEIN, TOTAL (test code = 7.4 G/DL 2228) ALBUMIN (test code = 2201) 4.4 G/DL CALC GLOBULIN (test code = 3.0 G/DL 2240) CALC A/G RATIO (test code = 1.5 RATIO 2234) BILIRUBIN, TOTAL (test code = 0.2 MG/DL 2206) ALKALINE PHOSPHATASE (test 76 U/L code = 2204) AST (test code = 2218) 20 U/L ALT (test code = 2219) 19 U/L COMPREHENSIVE METABOLIC [id number] 00:00:00 Test Item Value Reference Range Interpretation Comments GLUCOSE (test code = 2217) 96 MG/DL BUN (test code = 2208) 7 MG/DL CREATININE (test code = 2214) 0.66 MG/DL eGFR AMER. (test code 126 ML/MIN/1.73 = 36488) eGFR NON- AMER. (test 109 ML/MIN/1.73 code = 85108) CALC BUN/CREAT (test code = 11 RATIO 2235) SODIUM (test code = 2231) 139 MEQ/L POTASSIUM (test code = 2228) 4.5 MEQ/L CHLORIDE (test code = 2215) 99 MEQ/L CARBON DIOXIDE (test code = 28 MEQ/L 2206) CALCIUM (test code = 2209) 9.4 MG/DL PROTEIN, TOTAL (test code = 7.4 G/DL 2229) ALBUMIN (test code = 2201) 4.4 G/DL CALC GLOBULIN (test code = 3.0 G/DL 2240) CALC A/G RATIO (test code = 1.5 RATIO 2234) BILIRUBIN, TOTAL (test code = 0.2 MG/DL 2206) ALKALINE PHOSPHATASE (test 76 U/L code = 2204) AST (test code = 2218) 20 U/L ALT (test code = 2219) 19 U/L [id number] 00:00:00 Test Item Value Reference Range Interpretation Comments TSH, THIRD GENERATION (test code 1.140 UIU/ML = 2821) [id number] 00:00:00 Test Item Value Reference Range Interpretation Comments TSH, THIRD GENERATION (test code 1.140 UIU/ML = 2821) [id number] 00:00:00 Test Item Value Reference Range Interpretation Comments TSH, THIRD GENERATION (test code 1.140 UIU/ML = 2821) SCR MAMM BILATERAL CAD [id number] 15:53:27 - SCR MAMM BILATERAL CAD DIGITALBILATERAL DIGITAL SCREENING MAMMOGRAM WITH CAD: 06/04/2018CLINICAL: A symptomatic. Current mammographic images were evaluated by either a [employer] M-Vu or a [employer] CAD (computer aided detection system). No prior exams were available for comparison. The tissueof both breasts is heterogeneously dense. This may lower the sensitivity of mammography. No suspicious mass, architectural distortion, malignant type calcification, or lymph node abnormality detected. IMPRESSION: NEGATIVEThere is no mammographic evidence of malignancy. Resume annual screening mammography in one year. Meliton monzon/myra:06/10/2018 15:53:27 Document Control Clerk: Le Salgado MM, [facility] Mammographyletter sent: BIRADS 1-2 Normal Mammogram BI-RADS: 1 NegativePAP TEST, THINPREP, [id number] 00:00:00 Test Item Value Reference Range Interpretation Comments SOURCE: (test code = Cervical/Endocervical 8001) SLIDES: (test code = 1 8011) LMP: (test code = 8021) SPECIMEN ADEQUACY: (test (NOTE) code = 42958) INTERPRETATION: (test NO EPITHELIAL code = 55446) ABNORMALITY SEE BELOW OTHER COMMENTS: (test (NOTE) code = 8081) CHIEF ENGINEER WATERWORKS: (test Malek code = 8101) SEE Partida(ASCP) IAC PATHOLOGIST Darleen Dhillon, INTERPRETATION BY: (test M.D. code = 8122) LOCATION: (test code = (NOTE) 53762) CPT: (test code = 8140) (NOTE) PAP TEST, THINPREP, [id number] 00:00:00 Test Item Value Reference Range Interpretation Comments SOURCE: (test code = Cervical/Endocervical 8001) SLIDES: (test code = 1 8011) LMP: (test code = 8021) SPECIMEN ADEQUACY: (test (NOTE) code = 44732) INTERPRETATION: (test NO EPITHELIAL code = 63696) ABNORMALITY SEE BELOW OTHER COMMENTS: (test (NOTE) code = 8081) CHIEF ENGINEER WATERWORKS: (test Malek code = 8101) SEE Partida(ASCP) IAC PATHOLOGIST Darleen Dhillon, INTERPRETATION BY: (test M.D. code = 8122) LOCATION: (test code = (NOTE) 90629) CPT: (test code = 8140) (NOTE) PAP TEST, THINPREP, [id number] 00:00:00 Test Item Value Reference Range Interpretation Comments SOURCE: (test code = Cervical/Endocervical 8001) SLIDES: (test code = 1 8011) LMP: (test code = 8021) SPECIMEN ADEQUACY: (test (NOTE) code = 74064) INTERPRETATION: (test NO EPITHELIAL code = 26538) ABNORMALITY SEE BELOW OTHER COMMENTS: (test (NOTE) code = 8081) CHIEF ENGINEER WATERWORKS: (test Malek code = 8101) SEE Partida(ASCP) IAC PATHOLOGIST Darleen Dhillon, INTERPRETATION BY: (test M.D. code = 8122) LOCATION: (test code = (NOTE) 11835) CPT: (test code = 8140) (NOTE) PAP TEST, THINPREP, [id number] 00:00:00 Test Item Value Reference Range Interpretation Comments SOURCE: (test code = Cervical/Endocervical 8001) SLIDES: (test code = 1 8011) LMP: (test code = 8021) SPECIMEN ADEQUACY: (test (NOTE) code = 09721) INTERPRETATION: (test NO EPITHELIAL code = 21434) ABNORMALITY SEE BELOW OTHER COMMENTS: (test (NOTE) code = 8081) CHIEF ENGINEER WATERWORKS: (test Malek code = 8101) SEE Partida(ASCP) IAC PATHOLOGIST Darleen Dhillon, INTERPRETATION BY: (test M.D. code = 8122) LOCATION: (test code = (NOTE) 10119) CPT: (test code = 8140) (NOTE) HPV HIGH RISK WITH GENOTYPE, [id number] 00:00:00 Test Item Value Reference Range Interpretation Comments HPV HIGH RISK INTERP (test code = NEGATIVE 67860) HPV 16 (test code = 69644) NEGATIVE HPV 18 (test code = 32309) NEGATIVE HPV, HR, OTHER GENOTYPES (test code NEGATIVE = 94566) HPV HIGH RISK WITH GENOTYPE, [id number] 00:00:00 Test Item Value Reference Range Interpretation Comments HPV HIGH RISK INTERP (test code = NEGATIVE 37659) HPV 16 (test code = 22597) NEGATIVE HPV 18 (test code = 47514) NEGATIVE HPV, HR, OTHER GENOTYPES (test code NEGATIVE = 04403) HPV HIGH RISK WITH GENOTYPE, [id number] 00:00:00 Test Item Value Reference Range Interpretation Comments HPV HIGH RISK INTERP (test code = NEGATIVE 68468) HPV 16 (test code = 67691) NEGATIVE HPV 18 (test code = 49064) NEGATIVE HPV, HR, OTHER GENOTYPES (test code NEGATIVE = 20268) HPV HIGH RISK WITH GENOTYPE, [id number] 00:00:00 Test Item Value Reference Range Interpretation Comments HPV HIGH RISK INTERP (test code = NEGATIVE 92903) HPV 16 (test code = 55428) NEGATIVE HPV 18 (test code = 64630) NEGATIVE HPV, HR, OTHER GENOTYPES (test code NEGATIVE = 73078) CULTURE, [id number] 00:00:00 Test Item Value Reference Range Interpretation Comments CULTURE, URINE (test SPECIMEN NUMBER: code = 48456) [id number] CULTURE, [id number] 00:00:00 Test Item Value Reference Range Interpretation Comments CULTURE, URINE (test SPECIMEN NUMBER: code = 60989) [id number] CULTURE, [id number] 00:00:00 Test Item Value Reference Range Interpretation Comments CULTURE, URINE (test SPECIMEN NUMBER: code = 40630) [id number] CULTURE, [id number] 00:00:00 Test Item Value Reference Range Interpretation Comments CULTURE, URINE (test SPECIMEN NUMBER: code = 04280) [id number] COMPREHENSIVE METABOLIC [id number] 00:00:00 Test Item Value Reference Range Interpretation Comments GLUCOSE (test code = 2217) 95 MG/DL BUN (test code = 2208) 9 MG/DL CREATININE (test code = 2214) 0.66 MG/DL eGFR AMER. (test code 127 ML/MIN/1.73 = 20671) eGFR NON- AMER. (test 110 ML/MIN/1.73 code = 85365) CALC BUN/CREAT (test code = 14 RATIO 2235) SODIUM (test code = 2231) 141 MEQ/L POTASSIUM (test code = 2228) 4.7 MEQ/L CHLORIDE (test code = 2215) 102 MEQ/L CARBON DIOXIDE (test code = 27 MEQ/L 2205) CALCIUM (test code = 2209) 9.9 MG/DL PROTEIN, TOTAL (test code = 7.5 G/DL 2228) ALBUMIN (test code = 2201) 4.5 G/DL CALC GLOBULIN (test code = 3.0 G/DL 2240) CALC A/G RATIO (test code = 1.5 RATIO 4) BILIRUBIN, TOTAL (test code = <0.2 MG/DL 2206) ALKALINE PHOSPHATASE (test 83 U/L code = 2204) AST (test code = 2218) 21 U/L ALT (test code = 2219) 19 U/L COMPREHENSIVE METABOLIC [id number] 00:00:00 Test Item Value Reference Range Interpretation Comments GLUCOSE (test code = 2217) 95 MG/DL BUN (test code = 2208) 9 MG/DL CREATININE (test code = 2214) 0.66 MG/DL eGFR AMER. (test code 127 ML/MIN/1.73 = 73947) eGFR NON- AMER. (test 110 ML/MIN/1.73 code = 08939) CALC BUN/CREAT (test code = 14 RATIO 2235) SODIUM (test code = 2231) 141 MEQ/L POTASSIUM (test code = 2228) 4.7 MEQ/L CHLORIDE (test code = 2215) 102 MEQ/L CARBON DIOXIDE (test code = 27 MEQ/L 220) CALCIUM (test code = 2209) 9.9 MG/DL PROTEIN, TOTAL (test code = 7.5 G/DL 2228) ALBUMIN (test code = 2201) 4.5 G/DL CALC GLOBULIN (test code = 3.0 G/DL 2240) CALC A/G RATIO (test code = 1.5 RATIO 2234) BILIRUBIN, TOTAL (test code = <0.2 MG/DL 2206) ALKALINE PHOSPHATASE (test 83 U/L code = 2204) AST (test code = 2218) 21 U/L ALT (test code = 2219) 19 U/L VAGINAL PATHOGENS DNA [id number] 00:00:00 Test Item Value Reference Range Interpretation Comments CINDY SPECIES (test code = ) POSITIVE G. VAGINALIS (test code = 12847) NEGATIVE T. VAGINALIS (test code = 80499) NEGATIVE VAGINAL PATHOGENS DNA [id number] 00:00:00 Test Item Value Reference Range Interpretation Comments CINDY SPECIES (test code = 42941) POSITIVE G. VAGINALIS (test code = 57347) NEGATIVE T. VAGINALIS (test code = 18219) NEGATIVE LIPID [id number] 00:00:00 Test Item Value Reference Range Interpretation Comments CHOLESTEROL (test code = 2210) 158 MG/DL TRIGLYCERIDES (test code = 2232) 121 MG/DL HDL CHOLESTEROL (test code = 2220) 38 MG/DL CALC LDL CHOL (test code = 2237) 96 MG/DL RISK RATIO LDL/HDL (test code = 2.52 RATIO 2238) LIPID [id number] 00:00:00 Test Item Value Reference Range Interpretation Comments CHOLESTEROL (test code = 2210) 158 MG/DL TRIGLYCERIDES (test code = 2232) 121 MG/DL HDL CHOLESTEROL (test code = 2220) 38 MG/DL CALC LDL CHOL (test code = 2237) 96 MG/DL RISK RATIO LDL/HDL (test code = 2.52 RATIO 2238) [id number] 00:00:00 Test Item Value Reference Range Interpretation Comments TSH, THIRD GENERATION (test code 1.760 UIU/ML = 2821) [id number] 00:00:00 Test Item Value Reference Range Interpretation Comments TSH, THIRD GENERATION (test code 1.760 UIU/ML = 2821) [id number] 00:00:00 Test Item Value Reference Range Interpretation Comments TSH, THIRD GENERATION (test code 1.760 UIU/ML = 2821) CBC W/AUTO [id number] 00:00:00 Test Item Value Reference Range Interpretation Comments WBC (test code = 1001) 10.9 K/UL RBC (test code = 1002) 4.73 M/UL HEMOGLOBIN (test code = 1003) 13.7 G/DL HEMATOCRIT (test code = 1004) 41.0 % MCV (test code = 1005) 86.7 fL MCH (test code = 1006) 29.0 PG MCHC (test code = 1007) 33.4 G/DL RDW (test code = 1038) 14.6 % NEUTROPHILS (test code = 1008) 64.2 % LYMPHOCYTES (test code = 1010) 28.4 % MONOCYTES (test code = 1011) 5.3 % EOSINOPHILS (test code = 1012) 1.8 % BASOPHILS (test code = 1013) 0.3 % PLATELET COUNT (test code = 1015) 329 K/UL CBC W/AUTO [id number] 00:00:00 Test Item Value Reference Range Interpretation Comments WBC (test code = 1001) 10.9 K/UL RBC (test code = 1002) 4.73 M/UL HEMOGLOBIN (test code = 1003) 13.7 G/DL HEMATOCRIT (test code = 1004) 41.0 % MCV (test code = 1005) 86.7 fL MCH (test code = 1006) 29.0 PG MCHC (test code = 1007) 33.4 G/DL RDW (test code = 1038) 14.6 % NEUTROPHILS (test code = 1008) 64.2 % LYMPHOCYTES (test code = 1010) 28.4 % MONOCYTES (test code = 1011) 5.3 % EOSINOPHILS (test code = 1012) 1.8 % BASOPHILS (test code = 1013) 0.3 % PLATELET COUNT (test code = 1015) 329 K/UL CBC W/AUTO [id number] 00:00:00 Test Item Value Reference Range Interpretation Comments WBC (test code = 1001) 10.9 K/UL RBC (test code = 1002) 4.73 M/UL HEMOGLOBIN (test code = 1003) 13.7 G/DL HEMATOCRIT (test code = 1004) 41.0 % MCV (test code = 1005) 86.7 fL MCH (test code = 1006) 29.0 PG MCHC (test code = 1007) 33.4 G/DL RDW (test code = 1038) 14.6 % NEUTROPHILS (test code = 1008) 64.2 % LYMPHOCYTES (test code = 1010) 28.4 % MONOCYTES (test code = 1011) 5.3 % EOSINOPHILS (test code = 1012) 1.8 % BASOPHILS (test code = 1013) 0.3 % PLATELET COUNT (test code = 1015) 329 K/UL HEMOGLOBIN [id number] 00:00:00 Test Item Value Reference Range Interpretation Comments HEMOGLOBIN A1c (test code = 54374) 5.4 % HEMOGLOBIN [id number] 00:00:00 Test Item Value Reference Range Interpretation Comments HEMOGLOBIN A1c (test code = 37921) 5.4 % HEMOGLOBIN [id number] 00:00:00 Test Item Value Reference Range Interpretation Comments HEMOGLOBIN A1c (test code = 04883) 5.4 % COMPREHENSIVE METABOLIC [id number] 00:00:00 Test Item Value Reference Range Interpretation Comments GLUCOSE (test code = 2217) 95 MG/DL BUN (test code = 2208) 9 MG/DL CREATININE (test code = 2214) 0.66 MG/DL eGFR AMER. (test code 127 ML/MIN/1.73 = 74000) eGFR NON- AMER. (test 110 ML/MIN/1.73 code = 69384) CALC BUN/CREAT (test code = 14 RATIO 2235) SODIUM (test code = 2231) 141 MEQ/L POTASSIUM (test code = 2228) 4.7 MEQ/L CHLORIDE (test code = 2215) 102 MEQ/L CARBON DIOXIDE (test code = 27 MEQ/L 2205) CALCIUM (test code = 2209) 9.9 MG/DL PROTEIN, TOTAL (test code = 7.5 G/DL 2228) ALBUMIN (test code = 2201) 4.5 G/DL CALC GLOBULIN (test code = 3.0 G/DL 2240) CALC A/G RATIO (test code = 1.5 RATIO 2234) BILIRUBIN, TOTAL (test code = <0.2 MG/DL 2206) ALKALINE PHOSPHATASE (test 83 U/L code = 2204) AST (test code = 2218) 21 U/L ALT (test code = 2219) 19 U/L VAGINAL PATHOGENS DNA [id number] 00:00:00 Test Item Value Reference Range Interpretation Comments CINDY SPECIES (test code = ) POSITIVE G. VAGINALIS (test code = 94252) NEGATIVE T. VAGINALIS (test code = 82448) NEGATIVE VAGINAL PATHOGENS DNA [id number] 00:00:00 Test Item Value Reference Range Interpretation Comments CINDY SPECIES (test code = ) POSITIVE G. VAGINALIS (test code = 63630) NEGATIVE T. VAGINALIS (test code = 28720) NEGATIVE COMPREHENSIVE METABOLIC [id number] 00:00:00 Test Item Value Reference Range Interpretation Comments GLUCOSE (test code = 2217) 95 MG/DL BUN (test code = 2208) 9 MG/DL CREATININE (test code = 2214) 0.66 MG/DL eGFR AMER. (test code 127 ML/MIN/1.73 = 69424) eGFR NON- AMER. (test 110 ML/MIN/1.73 code = 29286) CALC BUN/CREAT (test code = 14 RATIO 2235) SODIUM (test code = 2231) 141 MEQ/L POTASSIUM (test code = 2228) 4.7 MEQ/L CHLORIDE (test code = 2215) 102 MEQ/L CARBON DIOXIDE (test code = 27 MEQ/L 2205) CALCIUM (test code = 2209) 9.9 MG/DL PROTEIN, TOTAL (test code = 7.5 G/DL 2228) ALBUMIN (test code = 2201) 4.5 G/DL CALC GLOBULIN (test code = 3.0 G/DL 2240) CALC A/G RATIO (test code = 1.5 RATIO 2234) BILIRUBIN, TOTAL (test code = <0.2 MG/DL 2206) ALKALINE PHOSPHATASE (test 83 U/L code = 2204) AST (test code = 2218) 21 U/L ALT (test code = 2219) 19 U/L LIPID [id number] 00:00:00 Test Item Value Reference Range Interpretation Comments CHOLESTEROL (test code = 2210) 158 MG/DL TRIGLYCERIDES (test code = 2232) 121 MG/DL HDL CHOLESTEROL (test code = 2220) 38 MG/DL CALC LDL CHOL (test code = 2237) 96 MG/DL RISK RATIO LDL/HDL (test code = 2.52 RATIO 2238) LIPID [id number] 00:00:00 Test Item Value Reference Range Interpretation Comments CHOLESTEROL (test code = 2210) 158 MG/DL TRIGLYCERIDES (test code = 2232) 121 MG/DL HDL CHOLESTEROL (test code = 2220) 38 MG/DL CALC LDL CHOL (test code = 2237) 96 MG/DL RISK RATIO LDL/HDL (test code = 2.52 RATIO 2238) [id number] 00:00:00 Test Item Value Reference Range Interpretation Comments TSH, THIRD GENERATION (test code 1.760 UIU/ML = 2821) [id number] 00:00:00 Test Item Value Reference Range Interpretation Comments TSH, THIRD GENERATION (test code 1.760 UIU/ML = 2821) [id number] 00:00:00 Test Item Value Reference Range Interpretation Comments TSH, THIRD GENERATION (test code 1.760 UIU/ML = 2821) CBC W/AUTO [id number] 00:00:00 Test Item Value Reference Range Interpretation Comments WBC (test code = 1001) 10.9 K/UL RBC (test code = 1002) 4.73 M/UL HEMOGLOBIN (test code = 1003) 13.7 G/DL HEMATOCRIT (test code = 1004) 41.0 % MCV (test code = 1005) 86.7 fL MCH (test code = 1006) 29.0 PG MCHC (test code = 1007) 33.4 G/DL RDW (test code = 1038) 14.6 % NEUTROPHILS (test code = 1008) 64.2 % LYMPHOCYTES (test code = 1010) 28.4 % MONOCYTES (test code = 1011) 5.3 % EOSINOPHILS (test code = 1012) 1.8 % BASOPHILS (test code = 1013) 0.3 % PLATELET COUNT (test code = 1015) 329 K/UL CBC W/AUTO [id number] 00:00:00 Test Item Value Reference Range Interpretation Comments WBC (test code = 1001) 10.9 K/UL RBC (test code = 1002) 4.73 M/UL HEMOGLOBIN (test code = 1003) 13.7 G/DL HEMATOCRIT (test code = 1004) 41.0 % MCV (test code = 1005) 86.7 fL MCH (test code = 1006) 29.0 PG MCHC (test code = 1007) 33.4 G/DL RDW (test code = 1038) 14.6 % NEUTROPHILS (test code = 1008) 64.2 % LYMPHOCYTES (test code = 1010) 28.4 % MONOCYTES (test code = 1011) 5.3 % EOSINOPHILS (test code = 1012) 1.8 % BASOPHILS (test code = 1013) 0.3 % PLATELET COUNT (test code = 1015) 329 K/UL CBC W/AUTO [id number] 00:00:00 Test Item Value Reference Range Interpretation Comments WBC (test code = 1001) 10.9 K/UL RBC (test code = 1002) 4.73 M/UL HEMOGLOBIN (test code = 1003) 13.7 G/DL HEMATOCRIT (test code = 1004) 41.0 % MCV (test code = 1005) 86.7 fL MCH (test code = 1006) 29.0 PG MCHC (test code = 1007) 33.4 G/DL RDW (test code = 1038) 14.6 % NEUTROPHILS (test code = 1008) 64.2 % LYMPHOCYTES (test code = 1010) 28.4 % MONOCYTES (test code = 1011) 5.3 % EOSINOPHILS (test code = 1012) 1.8 % BASOPHILS (test code = 1013) 0.3 % PLATELET COUNT (test code = 1015) 329 K/UL HEMOGLOBIN [id number] 00:00:00 Test Item Value Reference Range Interpretation Comments HEMOGLOBIN A1c (test code = 24453) 5.4 % HEMOGLOBIN [id number] 00:00:00 Test Item Value Reference Range Interpretation Comments HEMOGLOBIN A1c (test code = 33087) 5.4 % HEMOGLOBIN [id number] 00:00:00 Test Item Value Reference Range Interpretation Comments HEMOGLOBIN A1c (test code = 30709) 5.4 % ACUTE HEPATITIS [id number] 00:00:00 Test Item Value Reference Range Interpretation Comments HEPATITIS A IgM (test code = NON-REACTIVE 45134) HEPATITIS B CORE IgM (test code NON-REACTIVE = 4644) HEPATITIS B SURF AG (test code = NON-REACTIVE 2739) HEPATITIS C ANTIBODY (test code NON-REACTIVE = 4675) INTERPRETATION HEPATITIS A: (NOTE) (test code = 2552) INTERPRETATION HEPATITIS B: (NOTE) (test code = 61453) INTERPRETATION HEPATITIS C: (NOTE) (test code = 25805) ACUTE HEPATITIS [id number] 00:00:00 Test Item Value Reference Range Interpretation Comments HEPATITIS A IgM (test code = NON-REACTIVE 86244) HEPATITIS B CORE IgM (test code NON-REACTIVE = 4644) HEPATITIS B SURF AG (test code = NON-REACTIVE 2739) HEPATITIS C ANTIBODY (test code NON-REACTIVE = 4675) INTERPRETATION HEPATITIS A: (NOTE) (test code = 2552) INTERPRETATION HEPATITIS B: (NOTE) (test code = 12076) INTERPRETATION HEPATITIS C: (NOTE) (test code = 60547) ACUTE HEPATITIS [id number] 00:00:00 Test Item Value Reference Range Interpretation Comments HEPATITIS A IgM (test code = NON-REACTIVE 57782) HEPATITIS B CORE IgM (test code NON-REACTIVE = 4644) HEPATITIS B SURF AG (test code = NON-REACTIVE 2739) HEPATITIS C ANTIBODY (test code NON-REACTIVE = 4675) INTERPRETATION HEPATITIS A: (NOTE) (test code = 2552) INTERPRETATION HEPATITIS B: (NOTE) (test code = 90301) INTERPRETATION HEPATITIS C: (NOTE) (test code = 12096) ACUTE HEPATITIS [id number] 00:00:00 Test Item Value Reference Range Interpretation Comments HEPATITIS A IgM (test code = NON-REACTIVE 82536) HEPATITIS B CORE IgM (test code NON-REACTIVE = 4644) HEPATITIS B SURF AG (test code = NON-REACTIVE 2739) HEPATITIS C ANTIBODY (test code NON-REACTIVE = 4675) INTERPRETATION HEPATITIS A: (NOTE) (test code = 2552) INTERPRETATION HEPATITIS B: (NOTE) (test code = 97096) INTERPRETATION HEPATITIS C: (NOTE) (test code = 37278) COMPREHENSIVE METABOLIC [id number] 00:00:00 Test Item Value Reference Range Interpretation Comments GLUCOSE (test code = 2217) 91 MG/DL BUN (test code = 2208) 6 MG/DL CREATININE (test code = 2214) 0.63 MG/DL eGFR AMER. (test code 130 ML/MIN/1.73 = 77042) eGFR NON- AMER. (test 112 ML/MIN/1.73 code = 15687) CALC BUN/CREAT (test code = 10 RATIO 2235) SODIUM (test code = 2231) 138 MEQ/L POTASSIUM (test code = 2228) 3.9 MEQ/L CHLORIDE (test code = 2215) 97 MEQ/L CARBON DIOXIDE (test code = 26 MEQ/L 220) CALCIUM (test code = 2209) 9.4 MG/DL PROTEIN, TOTAL (test code = 7.3 G/DL 2228) ALBUMIN (test code = 2201) 4.5 G/DL CALC GLOBULIN (test code = 2.8 G/DL 2240) CALC A/G RATIO (test code = 1.6 RATIO 2234) BILIRUBIN, TOTAL (test code = 0.2 MG/DL 2206) ALKALINE PHOSPHATASE (test 99 U/L code = 2204) AST (test code = 2218) 91 U/L ALT (test code = 2219) 130 U/L COMPREHENSIVE METABOLIC [id number] 00:00:00 Test Item Value Reference Range Interpretation Comments GLUCOSE (test code = 2217) 91 MG/DL BUN (test code = 2208) 6 MG/DL CREATININE (test code = 2214) 0.63 MG/DL eGFR AMER. (test code 130 ML/MIN/1.73 = 95340) eGFR NON- AMER. (test 112 ML/MIN/1.73 code = 97586) CALC BUN/CREAT (test code = 10 RATIO 2235) SODIUM (test code = 2231) 138 MEQ/L POTASSIUM (test code = 2228) 3.9 MEQ/L CHLORIDE (test code = 2215) 97 MEQ/L CARBON DIOXIDE (test code = 26 MEQ/L 2205) CALCIUM (test code = 2209) 9.4 MG/DL PROTEIN, TOTAL (test code = 7.3 G/DL 2228) ALBUMIN (test code = 2201) 4.5 G/DL CALC GLOBULIN (test code = 2.8 G/DL 2240) CALC A/G RATIO (test code = 1.6 RATIO 2234) BILIRUBIN, TOTAL (test code = 0.2 MG/DL 2206) ALKALINE PHOSPHATASE (test 99 U/L code = 2204) AST (test code = 2218) 91 U/L ALT (test code = 2219) 130 U/L LIPID [id number] 00:00:00 Test Item Value Reference Range Interpretation Comments CHOLESTEROL (test code = 2210) 163 MG/DL TRIGLYCERIDES (test code = 2232) 258 MG/DL HDL CHOLESTEROL (test code = 2220) 24 MG/DL CALC LDL CHOL (test code = 2237) 87 MG/DL RISK RATIO LDL/HDL (test code = 3.64 RATIO 2238) LIPID [id number] 00:00:00 Test Item Value Reference Range Interpretation Comments CHOLESTEROL (test code = 2210) 163 MG/DL TRIGLYCERIDES (test code = 2232) 258 MG/DL HDL CHOLESTEROL (test code = 2220) 24 MG/DL CALC LDL CHOL (test code = 2237) 87 MG/DL RISK RATIO LDL/HDL (test code = 3.64 RATIO 2238) CBC W/AUTO [id number] 00:00:00 Test Item Value Reference Range Interpretation Comments WBC (test code = 1001) 8.3 K/UL RBC (test code = 1002) 4.61 M/UL HEMOGLOBIN (test code = 1003) 13.5 G/DL HEMATOCRIT (test code = 1004) 40.1 % MCV (test code = 1005) 87.0 fL MCH (test code = 1006) 29.3 PG MCHC (test code = 1007) 33.7 G/DL RDW (test code = 1038) 13.3 % NEUTROPHILS (test code = 1008) 54.8 % LYMPHOCYTES (test code = 1010) 30.5 % MONOCYTES (test code = 1011) 9.8 % EOSINOPHILS (test code = 1012) 4.5 % BASOPHILS (test code = 1013) 0.4 % PLATELET COUNT (test code = 1015) 221 K/UL CBC W/AUTO [id number] 00:00:00 Test Item Value Reference Range Interpretation Comments WBC (test code = 1001) 8.3 K/UL RBC (test code = 1002) 4.61 M/UL HEMOGLOBIN (test code = 1003) 13.5 G/DL HEMATOCRIT (test code = 1004) 40.1 % MCV (test code = 1005) 87.0 fL MCH (test code = 1006) 29.3 PG MCHC (test code = 1007) 33.7 G/DL RDW (test code = 1038) 13.3 % NEUTROPHILS (test code = 1008) 54.8 % LYMPHOCYTES (test code = 1010) 30.5 % MONOCYTES (test code = 1011) 9.8 % EOSINOPHILS (test code = 1012) 4.5 % BASOPHILS (test code = 1013) 0.4 % PLATELET COUNT (test code = 1015) 221 K/UL CBC W/AUTO [id number] 00:00:00 Test Item Value Reference Range Interpretation Comments WBC (test code = 1001) 8.3 K/UL RBC (test code = 1002) 4.61 M/UL HEMOGLOBIN (test code = 1003) 13.5 G/DL HEMATOCRIT (test code = 1004) 40.1 % MCV (test code = 1005) 87.0 fL MCH (test code = 1006) 29.3 PG MCHC (test code = 1007) 33.7 G/DL RDW (test code = 1038) 13.3 % NEUTROPHILS (test code = 1008) 54.8 % LYMPHOCYTES (test code = 1010) 30.5 % MONOCYTES (test code = 1011) 9.8 % EOSINOPHILS (test code = 1012) 4.5 % BASOPHILS (test code = 1013) 0.4 % PLATELET COUNT (test code = 1015) 221 K/UL COMPREHENSIVE METABOLIC [id number] 00:00:00 Test Item Value Reference Range Interpretation Comments GLUCOSE (test code = 2217) 91 MG/DL BUN (test code = 2208) 6 MG/DL CREATININE (test code = 2214) 0.63 MG/DL eGFR AMER. (test code 130 ML/MIN/1.73 = 41716) eGFR NON- AMER. (test 112 ML/MIN/1.73 code = 34148) CALC BUN/CREAT (test code = 10 RATIO 2235) SODIUM (test code = 2231) 138 MEQ/L POTASSIUM (test code = 2228) 3.9 MEQ/L CHLORIDE (test code = 2215) 97 MEQ/L CARBON DIOXIDE (test code = 26 MEQ/L 2205) CALCIUM (test code = 2209) 9.4 MG/DL PROTEIN, TOTAL (test code = 7.3 G/DL 2228) ALBUMIN (test code = 2201) 4.5 G/DL CALC GLOBULIN (test code = 2.8 G/DL 2240) CALC A/G RATIO (test code = 1.6 RATIO 2234) BILIRUBIN, TOTAL (test code = 0.2 MG/DL 2206) ALKALINE PHOSPHATASE (test 99 U/L code = 2204) AST (test code = 2218) 91 U/L ALT (test code = 2219) 130 U/L COMPREHENSIVE METABOLIC [id number] 00:00:00 Test Item Value Reference Range Interpretation Comments GLUCOSE (test code = 2217) 91 MG/DL BUN (test code = 2208) 6 MG/DL CREATININE (test code = 2214) 0.63 MG/DL eGFR AMER. (test code 130 ML/MIN/1.73 = 81965) eGFR NON- AMER. (test 112 ML/MIN/1.73 code = 34798) CALC BUN/CREAT (test code = 10 RATIO 2235) SODIUM (test code = 2231) 138 MEQ/L POTASSIUM (test code = 2228) 3.9 MEQ/L CHLORIDE (test code = 2215) 97 MEQ/L CARBON DIOXIDE (test code = 26 MEQ/L 2205) CALCIUM (test code = 2209) 9.4 MG/DL PROTEIN, TOTAL (test code = 7.3 G/DL 2228) ALBUMIN (test code = 2201) 4.5 G/DL CALC GLOBULIN (test code = 2.8 G/DL 2240) CALC A/G RATIO (test code = 1.6 RATIO 2234) BILIRUBIN, TOTAL (test code = 0.2 MG/DL 2206) ALKALINE PHOSPHATASE (test 99 U/L code = 2204) AST (test code = 2218) 91 U/L ALT (test code = 2219) 130 U/L LIPID [id number] 00:00:00 Test Item Value Reference Range Interpretation Comments CHOLESTEROL (test code = 2210) 163 MG/DL TRIGLYCERIDES (test code = 2232) 258 MG/DL HDL CHOLESTEROL (test code = 2220) 24 MG/DL CALC LDL CHOL (test code = 2237) 87 MG/DL RISK RATIO LDL/HDL (test code = 3.64 RATIO 2238) LIPID [id number] 00:00:00 Test Item Value Reference Range Interpretation Comments CHOLESTEROL (test code = 2210) 163 MG/DL TRIGLYCERIDES (test code = 2232) 258 MG/DL HDL CHOLESTEROL (test code = 2220) 24 MG/DL CALC LDL CHOL (test code = 2237) 87 MG/DL RISK RATIO LDL/HDL (test code = 3.64 RATIO 2238) CBC W/AUTO [id number] 00:00:00 Test Item Value Reference Range Interpretation Comments WBC (test code = 1001) 8.3 K/UL RBC (test code = 1002) 4.61 M/UL HEMOGLOBIN (test code = 1003) 13.5 G/DL HEMATOCRIT (test code = 1004) 40.1 % MCV (test code = 1005) 87.0 fL MCH (test code = 1006) 29.3 PG MCHC (test code = 1007) 33.7 G/DL RDW (test code = 1038) 13.3 % NEUTROPHILS (test code = 1008) 54.8 % LYMPHOCYTES (test code = 1010) 30.5 % MONOCYTES (test code = 1011) 9.8 % EOSINOPHILS (test code = 1012) 4.5 % BASOPHILS (test code = 1013) 0.4 % PLATELET COUNT (test code = 1015) 221 K/UL CBC W/AUTO [id number] 00:00:00 Test Item Value Reference Range Interpretation Comments WBC (test code = 1001) 8.3 K/UL RBC (test code = 1002) 4.61 M/UL HEMOGLOBIN (test code = 1003) 13.5 G/DL HEMATOCRIT (test code = 1004) 40.1 % MCV (test code = 1005) 87.0 fL MCH (test code = 1006) 29.3 PG MCHC (test code = 1007) 33.7 G/DL RDW (test code = 1038) 13.3 % NEUTROPHILS (test code = 1008) 54.8 % LYMPHOCYTES (test code = 1010) 30.5 % MONOCYTES (test code = 1011) 9.8 % EOSINOPHILS (test code = 1012) 4.5 % BASOPHILS (test code = 1013) 0.4 % PLATELET COUNT (test code = 1015) 221 K/UL CBC W/AUTO [id number] 00:00:00 Test Item Value Reference Range Interpretation Comments WBC (test code = 1001) 8.3 K/UL RBC (test code = 1002) 4.61 M/UL HEMOGLOBIN (test code = 1003) 13.5 G/DL HEMATOCRIT (test code = 1004) 40.1 % MCV (test code = 1005) 87.0 fL MCH (test code = 1006) 29.3 PG MCHC (test code = 1007) 33.7 G/DL RDW (test code = 1038) 13.3 % NEUTROPHILS (test code = 1008) 54.8 % LYMPHOCYTES (test code = 1010) 30.5 % MONOCYTES (test code = 1011) 9.8 % EOSINOPHILS (test code = 1012) 4.5 % BASOPHILS (test code = 1013) 0.4 % PLATELET COUNT (test code = 1015) 221 K/UL PAP TEST, THINPREP, [id number] 00:00:00 Test Item Value Reference Range Interpretation Comments SOURCE: (test code = Cervical/Endocervical 8001) SLIDES: (test code = 1 8011) LMP: (test code = 07/20/2016 8021) SPECIMEN ADEQUACY: (NOTE) (test code = 28783) INTERPRETATION: (test NO EPITHELIAL code = 01467) ABNORMALITY SEE BELOW OTHER COMMENTS: (test (NOTE) code = 8081) CHIEF ENGINEER WATERWORKS: SEE Fisher(ASCP) (test code = 8101) QC TECHNOLOGIST: Elvis Rodgers (test code = 8111) CT(ASCP) LOCATION: (test code (NOTE) = 67224) CPT: (test code = (NOTE) 8140) PAP TEST, THINPREP, [id number] 00:00:00 Test Item Value Reference Range Interpretation Comments SOURCE: (test code = Cervical/Endocervical 8001) SLIDES: (test code = 1 8011) LMP: (test code = 07/20/2016 8021) SPECIMEN ADEQUACY: (NOTE) (test code = 63973) INTERPRETATION: (test NO EPITHELIAL code = 34891) ABNORMALITY SEE BELOW OTHER COMMENTS: (test (NOTE) code = 8081) CHIEF ENGINEER WATERWORKS: SEE Fisher(ASCP) (test code = 8101) QC TECHNOLOGIST: Elvis Rodgers (test code = 8111) CT(ASCP) LOCATION: (test code (NOTE) = 49756) CPT: (test code = (NOTE) 8140) HPV HIGH RISK WITH GENOTYPE, [id number] 00:00:00 Test Item Value Reference Range Interpretation Comments HPV HIGH RISK INTERP (test code = NEGATIVE 11930) HPV 16 (test code = 77396) NEGATIVE HPV 18 (test code = 69288) NEGATIVE HPV, HR, OTHER GENOTYPES (test code NEGATIVE = 68761) HPV HIGH RISK WITH GENOTYPE, [id number] 00:00:00 Test Item Value Reference Range Interpretation Comments HPV HIGH RISK INTERP (test code = NEGATIVE 87999) HPV 16 (test code = 48618) NEGATIVE HPV 18 (test code = 79335) NEGATIVE HPV, HR, OTHER GENOTYPES (test code NEGATIVE = 99462) PAP TEST, THINPREP, [id number] 00:00:00 Test Item Value Reference Range Interpretation Comments SOURCE: (test code = Cervical/Endocervical 8001) SLIDES: (test code = 1 8011) LMP: (test code = 07/20/2016 8021) SPECIMEN ADEQUACY: (NOTE) (test code = 27650) INTERPRETATION: (test NO EPITHELIAL code = 96814) ABNORMALITY SEE BELOW OTHER COMMENTS: (test (NOTE) code = 8081) CHIEF ENGINEER WATERWORKS: SEE Fisher(ASCP) (test code = 8101) QC TECHNOLOGIST: Elvis Rodgers, (test code = 8111) CT(ASCP) LOCATION: (test code (NOTE) = 18086) CPT: (test code = (NOTE) 8140) PAP TEST, THINPREP, [id number] 00:00:00 Test Item Value Reference Range Interpretation Comments SOURCE: (test code = Cervical/Endocervical 8001) SLIDES: (test code = 1 8011) LMP: (test code = 07/20/2016 8021) SPECIMEN ADEQUACY: (NOTE) (test code = 72244) INTERPRETATION: (test NO EPITHELIAL code = 44341) ABNORMALITY SEE BELOW OTHER COMMENTS: (test (NOTE) code = 8081) CHIEF ENGINEER WATERWORKS: SEE Fisher(ASCP) (test code = 8101) QC TECHNOLOGIST: Elvis Rodgers (test code = 8111) CT(ASCP) LOCATION: (test code (NOTE) = 38072) CPT: (test code = (NOTE) 8140) HPV HIGH RISK WITH GENOTYPE, [id number] 00:00:00 Test Item Value Reference Range Interpretation Comments HPV HIGH RISK INTERP (test code = NEGATIVE 27552) HPV 16 (test code = 80398) NEGATIVE HPV 18 (test code = 90938) NEGATIVE HPV, HR, OTHER GENOTYPES (test code NEGATIVE = 77763) HPV HIGH RISK WITH GENOTYPE, [id number] 00:00:00 Test Item Value Reference Range Interpretation Comments HPV HIGH RISK INTERP (test code = NEGATIVE 68981) HPV 16 (test code = 48478) NEGATIVE HPV 18 (test code = 81905) NEGATIVE HPV, HR, OTHER GENOTYPES (test code NEGATIVE = 34384) GC AND CHLAMYDIA AMPLIFIED, [id number] 00:00:00 Test Item Value Reference Range Interpretation Comments GONORRHEA, TMA (test code = 34320) NEGATIVE CHLAMYDIA, TMA (test code = 00905) NEGATIVE GC AND CHLAMYDIA AMPLIFIED, [id number] 00:00:00 Test Item Value Reference Range Interpretation Comments GONORRHEA, TMA (test code = 87270) NEGATIVE CHLAMYDIA, TMA (test code = 72764) NEGATIVE GC AND CHLAMYDIA AMPLIFIED, [id number] 00:00:00 Test Item Value Reference Range Interpretation Comments GONORRHEA, TMA (test code = 75143) NEGATIVE CHLAMYDIA, TMA (test code = 65927) NEGATIVE GC AND CHLAMYDIA AMPLIFIED, [id number] 00:00:00 Test Item Value Reference Range Interpretation Comments GONORRHEA, TMA (test code = 40830) NEGATIVE CHLAMYDIA, TMA (test code = 48398) NEGATIVE CBC W/AUTO [id number] 00:00:00 Test Item Value Reference Range Interpretation Comments WBC (test code = 1001) 7.6 K/UL RBC (test code = 1002) 4.77 M/UL HEMOGLOBIN (test code = 1003) 13.5 G/DL HEMATOCRIT (test code = 1004) 42.6 % MCV (test code = 1005) 89.3 fL MCH (test code = 1006) 28.3 PG MCHC (test code = 1007) 31.7 G/DL RDW (test code = 1038) 14.0 % NEUTROPHILS (test code = 1008) 55.1 % LYMPHOCYTES (test code = 1010) 35.2 % MONOCYTES (test code = 1011) 5.4 % EOSINOPHILS (test code = 1012) 4.0 % BASOPHILS (test code = 1013) 0.3 % PLATELET COUNT (test code = 1015) 323 K/UL CBC W/AUTO [id number] 00:00:00 Test Item Value Reference Range Interpretation Comments WBC (test code = 1001) 7.6 K/UL RBC (test code = 1002) 4.77 M/UL HEMOGLOBIN (test code = 1003) 13.5 G/DL HEMATOCRIT (test code = 1004) 42.6 % MCV (test code = 1005) 89.3 fL MCH (test code = 1006) 28.3 PG MCHC (test code = 1007) 31.7 G/DL RDW (test code = 1038) 14.0 % NEUTROPHILS (test code = 1008) 55.1 % LYMPHOCYTES (test code = 1010) 35.2 % MONOCYTES (test code = 1011) 5.4 % EOSINOPHILS (test code = 1012) 4.0 % BASOPHILS (test code = 1013) 0.3 % PLATELET COUNT (test code = 1015) 323 K/UL CBC W/AUTO [id number] 00:00:00 Test Item Value Reference Range Interpretation Comments WBC (test code = 1001) 7.6 K/UL RBC (test code = 1002) 4.77 M/UL HEMOGLOBIN (test code = 1003) 13.5 G/DL HEMATOCRIT (test code = 1004) 42.6 % MCV (test code = 1005) 89.3 fL MCH (test code = 1006) 28.3 PG MCHC (test code = 1007) 31.7 G/DL RDW (test code = 1038) 14.0 % NEUTROPHILS (test code = 1008) 55.1 % LYMPHOCYTES (test code = 1010) 35.2 % MONOCYTES (test code = 1011) 5.4 % EOSINOPHILS (test code = 1012) 4.0 % BASOPHILS (test code = 1013) 0.3 % PLATELET COUNT (test code = 1015) 323 K/UL HEMOGLOBIN [id number] 00:00:00 Test Item Value Reference Range Interpretation Comments HEMOGLOBIN A1c (test code = 42519) 5.7 % HEMOGLOBIN [id number] 00:00:00 Test Item Value Reference Range Interpretation Comments HEMOGLOBIN A1c (test code = 46337) 5.7 % HEMOGLOBIN [id number] 00:00:00 Test Item Value Reference Range Interpretation Comments HEMOGLOBIN A1c (test code = 47845) 5.7 % LIPID [id number] 00:00:00 Test Item Value Reference Range Interpretation Comments CHOLESTEROL (test code = 2210) 173 MG/DL TRIGLYCERIDES (test code = 2232) 161 MG/DL HDL CHOLESTEROL (test code = 2220) 36 MG/DL CALC LDL CHOL (test code = 2237) 105 MG/DL RISK RATIO LDL/HDL (test code = 2.91 RATIO 2238) LIPID [id number] 00:00:00 Test Item Value Reference Range Interpretation Comments CHOLESTEROL (test code = 2210) 173 MG/DL TRIGLYCERIDES (test code = 2232) 161 MG/DL HDL CHOLESTEROL (test code = 2220) 36 MG/DL CALC LDL CHOL (test code = 2237) 105 MG/DL RISK RATIO LDL/HDL (test code = 2.91 RATIO 2238) [id number] 00:00:00 Test Item Value Reference Range Interpretation Comments RPR RESULT (test code = NON-REACTIVE 3501) RPR TITER (test code = 3500) NOT INDIC. TITER [id number] 00:00:00 Test Item Value Reference Range Interpretation Comments RPR RESULT (test code = NON-REACTIVE 3501) RPR TITER (test code = 3500) NOT INDIC. TITER [id number] 00:00:00 Test Item Value Reference Range Interpretation Comments RPR RESULT (test code = NON-REACTIVE 3501) RPR TITER (test code = 3500) NOT INDIC. TITER RUBELLA ANTIBODY [id number] 00:00:00 Test Item Value Reference Range Interpretation Comments RUBELLA ANTIBODY SCREEN (test code = 22 IU/ML 4600) RUBELLA IgG INTERP (test code = REACTIVE 86418) RUBELLA ANTIBODY [id number] 00:00:00 Test Item Value Reference Range Interpretation Comments RUBELLA ANTIBODY SCREEN (test code = 22 IU/ML 4600) RUBELLA IgG INTERP (test code = REACTIVE 23114) [id number] 00:00:00 Test Item Value Reference Range Interpretation Comments TSH (test code = 2821) 1.76 UIU/ML [id number] 00:00:00 Test Item Value Reference Range Interpretation Comments TSH (test code = 2821) 1.76 UIU/ML [id number] 00:00:00 Test Item Value Reference Range Interpretation Comments TSH (test code = 2821) 1.76 UIU/ML ACUTE HEPATITIS [id number] 00:00:00 Test Item Value Reference Range Interpretation Comments HEPATITIS A IgM (test code = NON-REACTIVE 51808) HEPATITIS B CORE IgM (test code NON-REACTIVE = 4644) HEPATITIS B SURF AG (test code = NON-REACTIVE 2739) HEPATITIS C ANTIBODY (test code NON-REACTIVE = 4675) INTERPRETATION HEPATITIS A: (NOTE) (test code = 2552) INTERPRETATION HEPATITIS B: (NOTE) (test code = 22198) INTERPRETATION HEPATITIS C: (NOTE) (test code = 47035) ACUTE HEPATITIS [id number] 00:00:00 Test Item Value Reference Range Interpretation Comments HEPATITIS A IgM (test code = NON-REACTIVE 18987) HEPATITIS B CORE IgM (test code NON-REACTIVE = 4644) HEPATITIS B SURF AG (test code = NON-REACTIVE 2739) HEPATITIS C ANTIBODY (test code NON-REACTIVE = 4675) INTERPRETATION HEPATITIS A: (NOTE) (test code = 2552) INTERPRETATION HEPATITIS B: (NOTE) (test code = 33343) INTERPRETATION HEPATITIS C: (NOTE) (test code = 82022) HIV AB/AG COMBO RFLX [id number] 00:00:00 Test Item Value Reference Range Interpretation Comments HIV 1/2 4TH GEN, RFLX CONF (test NON-REACTIVE code = 3514) HIV AB/AG COMBO RFLX [id number] 00:00:00 Test Item Value Reference Range Interpretation Comments HIV 1/2 4TH GEN, RFLX CONF (test NON-REACTIVE code = 3514) CBC W/AUTO [id number] 00:00:00 Test Item Value Reference Range Interpretation Comments WBC (test code = 1001) 7.6 K/UL RBC (test code = 1002) 4.77 M/UL HEMOGLOBIN (test code = 1003) 13.5 G/DL HEMATOCRIT (test code = 1004) 42.6 % MCV (test code = 1005) 89.3 fL MCH (test code = 1006) 28.3 PG MCHC (test code = 1007) 31.7 G/DL RDW (test code = 1038) 14.0 % NEUTROPHILS (test code = 1008) 55.1 % LYMPHOCYTES (test code = 1010) 35.2 % MONOCYTES (test code = 1011) 5.4 % EOSINOPHILS (test code = 1012) 4.0 % BASOPHILS (test code = 1013) 0.3 % PLATELET COUNT (test code = 1015) 323 K/UL CBC W/AUTO [id number] 00:00:00 Test Item Value Reference Range Interpretation Comments WBC (test code = 1001) 7.6 K/UL RBC (test code = 1002) 4.77 M/UL HEMOGLOBIN (test code = 1003) 13.5 G/DL HEMATOCRIT (test code = 1004) 42.6 % MCV (test code = 1005) 89.3 fL MCH (test code = 1006) 28.3 PG MCHC (test code = 1007) 31.7 G/DL RDW (test code = 1038) 14.0 % NEUTROPHILS (test code = 1008) 55.1 % LYMPHOCYTES (test code = 1010) 35.2 % MONOCYTES (test code = 1011) 5.4 % EOSINOPHILS (test code = 1012) 4.0 % BASOPHILS (test code = 1013) 0.3 % PLATELET COUNT (test code = 1015) 323 K/UL CBC W/AUTO [id number] 00:00:00 Test Item Value Reference Range Interpretation Comments WBC (test code = 1001) 7.6 K/UL RBC (test code = 1002) 4.77 M/UL HEMOGLOBIN (test code = 1003) 13.5 G/DL HEMATOCRIT (test code = 1004) 42.6 % MCV (test code = 1005) 89.3 fL MCH (test code = 1006) 28.3 PG MCHC (test code = 1007) 31.7 G/DL RDW (test code = 1038) 14.0 % NEUTROPHILS (test code = 1008) 55.1 % LYMPHOCYTES (test code = 1010) 35.2 % MONOCYTES (test code = 1011) 5.4 % EOSINOPHILS (test code = 1012) 4.0 % BASOPHILS (test code = 1013) 0.3 % PLATELET COUNT (test code = 1015) 323 K/UL HEMOGLOBIN [id number] 00:00:00 Test Item Value Reference Range Interpretation Comments HEMOGLOBIN A1c (test code = 52873) 5.7 % HEMOGLOBIN [id number] 00:00:00 Test Item Value Reference Range Interpretation Comments HEMOGLOBIN A1c (test code = 44789) 5.7 % HEMOGLOBIN [id number] 00:00:00 Test Item Value Reference Range Interpretation Comments HEMOGLOBIN A1c (test code = 20031) 5.7 % LIPID [id number] 00:00:00 Test Item Value Reference Range Interpretation Comments CHOLESTEROL (test code = 2210) 173 MG/DL TRIGLYCERIDES (test code = 2232) 161 MG/DL HDL CHOLESTEROL (test code = 2220) 36 MG/DL CALC LDL CHOL (test code = 2237) 105 MG/DL RISK RATIO LDL/HDL (test code = 2.91 RATIO 2238) LIPID [id number] 00:00:00 Test Item Value Reference Range Interpretation Comments CHOLESTEROL (test code = 2210) 173 MG/DL TRIGLYCERIDES (test code = 2232) 161 MG/DL HDL CHOLESTEROL (test code = 2220) 36 MG/DL CALC LDL CHOL (test code = 2237) 105 MG/DL RISK RATIO LDL/HDL (test code = 2.91 RATIO 2238) [id number] 00:00:00 Test Item Value Reference Range Interpretation Comments RPR RESULT (test code = NON-REACTIVE 3501) RPR TITER (test code = 3500) NOT INDIC. TITER [id number] 00:00:00 Test Item Value Reference Range Interpretation Comments RPR RESULT (test code = NON-REACTIVE 3501) RPR TITER (test code = 3500) NOT INDIC. TITER [id number] 00:00:00 Test Item Value Reference Range Interpretation Comments RPR RESULT (test code = NON-REACTIVE 3501) RPR TITER (test code = 3500) NOT INDIC. TITER RUBELLA ANTIBODY [id number] 00:00:00 Test Item Value Reference Range Interpretation Comments RUBELLA ANTIBODY SCREEN (test code = 22 IU/ML 4600) RUBELLA IgG INTERP (test code = REACTIVE 06135) RUBELLA ANTIBODY [id number] 00:00:00 Test Item Value Reference Range Interpretation Comments RUBELLA ANTIBODY SCREEN (test code = 22 IU/ML 4600) RUBELLA IgG INTERP (test code = REACTIVE 74198) [id number] 00:00:00 Test Item Value Reference Range Interpretation Comments TSH (test code = 2821) 1.76 UIU/ML [id number] 00:00:00 Test Item Value Reference Range Interpretation Comments TSH (test code = 2821) 1.76 UIU/ML [id number] 00:00:00 Test Item Value Reference Range Interpretation Comments TSH (test code = 2821) 1.76 UIU/ML ACUTE HEPATITIS [id number] 00:00:00 Test Item Value Reference Range Interpretation Comments HEPATITIS A IgM (test code = NON-REACTIVE 03000) HEPATITIS B CORE IgM (test code NON-REACTIVE = 4644) HEPATITIS B SURF AG (test code = NON-REACTIVE 2739) HEPATITIS C ANTIBODY (test code NON-REACTIVE = 4675) INTERPRETATION HEPATITIS A: (NOTE) (test code = 2552) INTERPRETATION HEPATITIS B: (NOTE) (test code = 24967) INTERPRETATION HEPATITIS C: (NOTE) (test code = 34824) ACUTE HEPATITIS [id number] 00:00:00 Test Item Value Reference Range Interpretation Comments HEPATITIS A IgM (test code = NON-REACTIVE 66003) HEPATITIS B CORE IgM (test code NON-REACTIVE = 4644) HEPATITIS B SURF AG (test code = NON-REACTIVE 2739) HEPATITIS C ANTIBODY (test code NON-REACTIVE = 4675) INTERPRETATION HEPATITIS A: (NOTE) (test code = 2552) INTERPRETATION HEPATITIS B: (NOTE) (test code = 33162) INTERPRETATION HEPATITIS C: (NOTE) (test code = 11583) HIV AB/AG COMBO RFLX [id number] 00:00:00 Test Item Value Reference Range Interpretation Comments HIV 1/2 4TH GEN, RFLX CONF (test NON-REACTIVE code = 3514) HIV AB/AG COMBO RFLX [id number] 00:00:00 Test Item Value Reference Range Interpretation Comments HIV 1/2 4TH GEN, RFLX CONF (test NON-REACTIVE code = 3514) COMPREHENSIVE METABOLIC [id number] 00:00:00 Test Item Value Reference Range Interpretation Comments GLUCOSE (test code = 2217) 92 MG/DL BUN (test code = 2208) 7 MG/DL CREATININE (test code = 2214) 0.71 MG/DL eGFR AMER. (test code 124 ML/MIN/1.73 = 51775) eGFR NON- AMER. (test 107 ML/MIN/1.73 code = 51293) CALC BUN/CREAT (test code = 10 RATIO 2235) SODIUM (test code = 2231) 140 MEQ/L POTASSIUM (test code = 2228) 4.5 MEQ/L CHLORIDE (test code = 2215) 101 MEQ/L CARBON DIOXIDE (test code = 23 MEQ/L 220) CALCIUM (test code = 2209) 9.6 MG/DL PROTEIN, TOTAL (test code = 7.3 G/DL 2228) ALBUMIN (test code = 2201) 4.5 G/DL CALC GLOBULIN (test code = 2.8 G/DL 2240) CALC A/G RATIO (test code = 1.6 RATIO 2234) BILIRUBIN, TOTAL (test code = 0.3 MG/DL 2206) ALKALINE PHOSPHATASE (test 75 U/L code = 2204) AST (test code = 2218) 18 U/L ALT (test code = 2219) 13 U/L COMPREHENSIVE METABOLIC [id number] 00:00:00 Test Item Value Reference Range Interpretation Comments GLUCOSE (test code = 2217) 92 MG/DL BUN (test code = 2208) 7 MG/DL CREATININE (test code = 2214) 0.71 MG/DL eGFR AMER. (test code 124 ML/MIN/1.73 = 51531) eGFR NON- AMER. (test 107 ML/MIN/1.73 code = 56061) CALC BUN/CREAT (test code = 10 RATIO 2235) SODIUM (test code = 2231) 140 MEQ/L POTASSIUM (test code = 2228) 4.5 MEQ/L CHLORIDE (test code = 2215) 101 MEQ/L CARBON DIOXIDE (test code = 23 MEQ/L 220) CALCIUM (test code = 2209) 9.6 MG/DL PROTEIN, TOTAL (test code = 7.3 G/DL 2228) ALBUMIN (test code = 2201) 4.5 G/DL CALC GLOBULIN (test code = 2.8 G/DL 2240) CALC A/G RATIO (test code = 1.6 RATIO 2234) BILIRUBIN, TOTAL (test code = 0.3 MG/DL 2207) ALKALINE PHOSPHATASE (test 75 U/L code = 2204) AST (test code = 2218) 18 U/L ALT (test code = 2219) 13 U/L LIPID [id number] 00:00:00 Test Item Value Reference Range Interpretation Comments CHOLESTEROL (test code = 2210) 155 MG/DL TRIGLYCERIDES (test code = 2232) 152 MG/DL HDL CHOLESTEROL (test code = 2220) 30 MG/DL CALC LDL CHOL (test code = 2237) 95 MG/DL RISK RATIO LDL/HDL (test code = 3.15 RATIO 2238) LIPID [id number] 00:00:00 Test Item Value Reference Range Interpretation Comments CHOLESTEROL (test code = 2210) 155 MG/DL TRIGLYCERIDES (test code = 2232) 152 MG/DL HDL CHOLESTEROL (test code = 2220) 30 MG/DL CALC LDL CHOL (test code = 2237) 95 MG/DL RISK RATIO LDL/HDL (test code = 3.15 RATIO 2238) CBC W/AUTO [id number] 00:00:00 Test Item Value Reference Range Interpretation Comments WBC (test code = 1001) 8.1 K/UL RBC (test code = 1002) 4.67 M/UL HEMOGLOBIN (test code = 1003) 13.8 G/DL HEMATOCRIT (test code = 1004) 40.3 % MCV (test code = 1005) 86.3 fL MCH (test code = 1006) 29.6 PG MCHC (test code = 1007) 34.2 G/DL RDW (test code = 1038) 14.1 % NEUTROPHILS (test code = 1008) 61.9 % LYMPHOCYTES (test code = 1010) 30.7 % MONOCYTES (test code = 1011) 5.7 % EOSINOPHILS (test code = 1012) 1.5 % BASOPHILS (test code = 1013) 0.2 % PLATELET COUNT (test code = 1015) 321 K/UL CBC W/AUTO [id number] 00:00:00 Test Item Value Reference Range Interpretation Comments WBC (test code = 1001) 8.1 K/UL RBC (test code = 1002) 4.67 M/UL HEMOGLOBIN (test code = 1003) 13.8 G/DL HEMATOCRIT (test code = 1004) 40.3 % MCV (test code = 1005) 86.3 fL MCH (test code = 1006) 29.6 PG MCHC (test code = 1007) 34.2 G/DL RDW (test code = 1038) 14.1 % NEUTROPHILS (test code = 1008) 61.9 % LYMPHOCYTES (test code = 1010) 30.7 % MONOCYTES (test code = 1011) 5.7 % EOSINOPHILS (test code = 1012) 1.5 % BASOPHILS (test code = 1013) 0.2 % PLATELET COUNT (test code = 1015) 321 K/UL CBC W/AUTO [id number] 00:00:00 Test Item Value Reference Range Interpretation Comments WBC (test code = 1001) 8.1 K/UL RBC (test code = 1002) 4.67 M/UL HEMOGLOBIN (test code = 1003) 13.8 G/DL HEMATOCRIT (test code = 1004) 40.3 % MCV (test code = 1005) 86.3 fL MCH (test code = 1006) 29.6 PG MCHC (test code = 1007) 34.2 G/DL RDW (test code = 1038) 14.1 % NEUTROPHILS (test code = 1008) 61.9 % LYMPHOCYTES (test code = 1010) 30.7 % MONOCYTES (test code = 1011) 5.7 % EOSINOPHILS (test code = 1012) 1.5 % BASOPHILS (test code = 1013) 0.2 % PLATELET COUNT (test code = 1015) 321 K/UL HEMOGLOBIN [id number] 00:00:00 Test Item Value Reference Range Interpretation Comments HEMOGLOBIN A1c (test code = 85794) 5.8 % HEMOGLOBIN [id number] 00:00:00 Test Item Value Reference Range Interpretation Comments HEMOGLOBIN A1c (test code = 06623) 5.8 % HEMOGLOBIN [id number] 00:00:00 Test Item Value Reference Range Interpretation Comments HEMOGLOBIN A1c (test code = 94266) 5.8 % [id number] 00:00:00 Test Item Value Reference Range Interpretation Comments TSH (test code = 2821) 1.2 UIU/ML [id number] 00:00:00 Test Item Value Reference Range Interpretation Comments TSH (test code = 2821) 1.2 UIU/ML [id number] 00:00:00 Test Item Value Reference Range Interpretation Comments TSH (test code = 2821) 1.2 UIU/ML COMPREHENSIVE METABOLIC [id number] 00:00:00 Test Item Value Reference Range Interpretation Comments GLUCOSE (test code = 2217) 92 MG/DL BUN (test code = 2208) 7 MG/DL CREATININE (test code = 2214) 0.71 MG/DL eGFR AMER. (test code 124 ML/MIN/1.73 = 74294) eGFR NON- AMER. (test 107 ML/MIN/1.73 code = 80969) CALC BUN/CREAT (test code = 10 RATIO 2235) SODIUM (test code = 2231) 140 MEQ/L POTASSIUM (test code = 2228) 4.5 MEQ/L CHLORIDE (test code = 2215) 101 MEQ/L CARBON DIOXIDE (test code = 23 MEQ/L 2205) CALCIUM (test code = 2209) 9.6 MG/DL PROTEIN, TOTAL (test code = 7.3 G/DL 2228) ALBUMIN (test code = 2201) 4.5 G/DL CALC GLOBULIN (test code = 2.8 G/DL 2239) CALC A/G RATIO (test code = 1.6 RATIO 2234) BILIRUBIN, TOTAL (test code = 0.3 MG/DL 2206) ALKALINE PHOSPHATASE (test 75 U/L code = 2204) AST (test code = 2218) 18 U/L ALT (test code = 2219) 13 U/L COMPREHENSIVE METABOLIC [id number] 00:00:00 Test Item Value Reference Range Interpretation Comments GLUCOSE (test code = 2217) 92 MG/DL BUN (test code = 2208) 7 MG/DL CREATININE (test code = 2214) 0.71 MG/DL eGFR AMER. (test code 124 ML/MIN/1.73 = 09550) eGFR NON- AMER. (test 107 ML/MIN/1.73 code = 31274) CALC BUN/CREAT (test code = 10 RATIO 2235) SODIUM (test code = 2231) 140 MEQ/L POTASSIUM (test code = 2228) 4.5 MEQ/L CHLORIDE (test code = 2215) 101 MEQ/L CARBON DIOXIDE (test code = 23 MEQ/L 220) CALCIUM (test code = 2209) 9.6 MG/DL PROTEIN, TOTAL (test code = 7.3 G/DL 2229) ALBUMIN (test code = 2201) 4.5 G/DL CALC GLOBULIN (test code = 2.8 G/DL 2240) CALC A/G RATIO (test code = 1.6 RATIO 2234) BILIRUBIN, TOTAL (test code = 0.3 MG/DL 2207) ALKALINE PHOSPHATASE (test 75 U/L code = 2204) AST (test code = 2218) 18 U/L ALT (test code = 2219) 13 U/L LIPID [id number] 00:00:00 Test Item Value Reference Range Interpretation Comments CHOLESTEROL (test code = 2210) 155 MG/DL TRIGLYCERIDES (test code = 2232) 152 MG/DL HDL CHOLESTEROL (test code = 2220) 30 MG/DL CALC LDL CHOL (test code = 2237) 95 MG/DL RISK RATIO LDL/HDL (test code = 3.15 RATIO 2238) LIPID [id number] 00:00:00 Test Item Value Reference Range Interpretation Comments CHOLESTEROL (test code = 2210) 155 MG/DL TRIGLYCERIDES (test code = 2232) 152 MG/DL HDL CHOLESTEROL (test code = 2220) 30 MG/DL CALC LDL CHOL (test code = 2237) 95 MG/DL RISK RATIO LDL/HDL (test code = 3.15 RATIO 2238) CBC W/AUTO [id number] 00:00:00 Test Item Value Reference Range Interpretation Comments WBC (test code = 1001) 8.1 K/UL RBC (test code = 1002) 4.67 M/UL HEMOGLOBIN (test code = 1003) 13.8 G/DL HEMATOCRIT (test code = 1004) 40.3 % MCV (test code = 1005) 86.3 fL MCH (test code = 1006) 29.6 PG MCHC (test code = 1007) 34.2 G/DL RDW (test code = 1038) 14.1 % NEUTROPHILS (test code = 1008) 61.9 % LYMPHOCYTES (test code = 1010) 30.7 % MONOCYTES (test code = 1011) 5.7 % EOSINOPHILS (test code = 1012) 1.5 % BASOPHILS (test code = 1013) 0.2 % PLATELET COUNT (test code = 1015) 321 K/UL CBC W/AUTO [id number] 00:00:00 Test Item Value Reference Range Interpretation Comments WBC (test code = 1001) 8.1 K/UL RBC (test code = 1002) 4.67 M/UL HEMOGLOBIN (test code = 1003) 13.8 G/DL HEMATOCRIT (test code = 1004) 40.3 % MCV (test code = 1005) 86.3 fL MCH (test code = 1006) 29.6 PG MCHC (test code = 1007) 34.2 G/DL RDW (test code = 1038) 14.1 % NEUTROPHILS (test code = 1008) 61.9 % LYMPHOCYTES (test code = 1010) 30.7 % MONOCYTES (test code = 1011) 5.7 % EOSINOPHILS (test code = 1012) 1.5 % BASOPHILS (test code = 1013) 0.2 % PLATELET COUNT (test code = 1015) 321 K/UL CBC W/AUTO [id number] 00:00:00 Test Item Value Reference Range Interpretation Comments WBC (test code = 1001) 8.1 K/UL RBC (test code = 1002) 4.67 M/UL HEMOGLOBIN (test code = 1003) 13.8 G/DL HEMATOCRIT (test code = 1004) 40.3 % MCV (test code = 1005) 86.3 fL MCH (test code = 1006) 29.6 PG MCHC (test code = 1007) 34.2 G/DL RDW (test code = 1038) 14.1 % NEUTROPHILS (test code = 1008) 61.9 % LYMPHOCYTES (test code = 1010) 30.7 % MONOCYTES (test code = 1011) 5.7 % EOSINOPHILS (test code = 1012) 1.5 % BASOPHILS (test code = 1013) 0.2 % PLATELET COUNT (test code = 1015) 321 K/UL HEMOGLOBIN [id number] 00:00:00 Test Item Value Reference Range Interpretation Comments HEMOGLOBIN A1c (test code = 68620) 5.8 % HEMOGLOBIN [id number] 00:00:00 Test Item Value Reference Range Interpretation Comments HEMOGLOBIN A1c (test code = 28729) 5.8 % HEMOGLOBIN [id number] 00:00:00 Test Item Value Reference Range Interpretation Comments HEMOGLOBIN A1c (test code = 95537) 5.8 % [id number] 00:00:00 Test Item Value Reference Range Interpretation Comments TSH (test code = 2821) 1.2 UIU/ML [id number] 00:00:00 Test Item Value Reference Range Interpretation Comments TSH (test code = 2821) 1.2 UIU/ML [id number] 00:00:00 Test Item Value Reference Range Interpretation Comments TSH (test code = 2821) 1.2 UIU/ML CULTURE, [id number] 00:00:00 Test Item Value Reference Range Interpretation Comments CULTURE, URINE (test SPECIMEN NUMBER: code = 75009) [id number] CULTURE, [id number] 00:00:00 Test Item Value Reference Range Interpretation Comments CULTURE, URINE (test SPECIMEN NUMBER: code = 99206) [id number] CULTURE, [id number] 00:00:00 Test Item Value Reference Range Interpretation Comments CULTURE, URINE (test SPECIMEN NUMBER: code = 03652) [id number] CULTURE, [id number] 00:00:00 Test Item Value Reference Range Interpretation Comments CULTURE, URINE (test SPECIMEN NUMBER: code = 37554) [id number] PAP TEST, THINPREP, [id number] 00:00:00 Test Item Value Reference Range Interpretation Comments SOURCE: (test code = A) 8001) Cervical/Endocervical SLIDES: (test code = 1 8011) LMP: (test code = 8021) 2015-03-19 SPECIMEN ADEQUACY: (test (NOTE) code = 99580) INTERPRETATION: (test EPITHELIAL code = 45302) ABNORMALITY SEE BELOW CHIEF ENGINEER WATERWORKS: (test Doreen code = 8101) SEE Lira(ASCP)IAC PATHOLOGIST SEE NOTE INTERPRETATION BY: (test code = 8122) LOCATION: (test code = (NOTE) 15754) CPT: (test code = 8140) (NOTE) PAP TEST, THINPREP, [id number] 00:00:00 Test Item Value Reference Range Interpretation Comments SOURCE: (test code = A) 8001) Cervical/Endocervical SLIDES: (test code = 1 8011) LMP: (test code = 8021) 2015-03-19 SPECIMEN ADEQUACY: (test (NOTE) code = 40974) INTERPRETATION: (test EPITHELIAL code = 33060) ABNORMALITY SEE BELOW CHIEF ENGINEER WATERWORKS: (test Doreen code = 8101) SEE Lira(ASCP)IAC PATHOLOGIST SEE NOTE INTERPRETATION BY: (test code = 8122) LOCATION: (test code = (NOTE) 20533) CPT: (test code = 8140) (NOTE) PAP TEST, THINPREP, [id number] 00:00:00 Test Item Value Reference Range Interpretation Comments SOURCE: (test code = A) 8001) Cervical/Endocervical SLIDES: (test code = 1 8011) LMP: (test code = 8021) 2015-03-19 SPECIMEN ADEQUACY: (test (NOTE) code = 08103) INTERPRETATION: (test EPITHELIAL code = 43301) ABNORMALITY SEE BELOW CHIEF ENGINEER WATERWORKS: (test Doreen code = 8101) SEE Lira(ASCP)IAC PATHOLOGIST SEE NOTE INTERPRETATION BY: (test code = 8122) LOCATION: (test code = (NOTE) 09737) CPT: (test code = 8140) (NOTE) PAP TEST, THINPREP, [id number] 00:00:00 Test Item Value Reference Range Interpretation Comments SOURCE: (test code = A) 8001) Cervical/Endocervical SLIDES: (test code = 1 8011) LMP: (test code = 8021) 2015-03-19 SPECIMEN ADEQUACY: (test (NOTE) code = 83927) INTERPRETATION: (test EPITHELIAL code = 01595) ABNORMALITY SEE BELOW CHIEF ENGINEER WATERWORKS: (test Doreen code = 8101) SEE Lira(ASCP)[facility] PATHOLOGIST SEE NOTE INTERPRETATION BY: (test code = 8122) LOCATION: (test code = (NOTE) 48609) CPT: (test code = 8140) (NOTE) COMPREHENSIVE METABOLIC [id number] 00:00:00 Test Item Value Reference Range Interpretation Comments GLUCOSE (test code = 2217) 180 MG/DL BUN (test code = 2208) 7 MG/DL CREATININE (test code = 2214) 0.7 MG/DL eGFR AMER. (test code 113 ML/MIN/1.73 = 66503) eGFR NON- AMER. (test 94 ML/MIN/1.73 code = 45339) CALCULATED BUN/CREAT (test 10 RATIO code = 2235) SODIUM (test code = 2231) 137 MEQ/L POTASSIUM (test code = 2228) 3.7 MEQ/L CHLORIDE (test code = 2215) 103 MEQ/L CARBON DIOXIDE (test code = 21 MEQ/L 2205) CALCIUM (test code = 2209) 9.5 MG/DL PROTEIN, TOTAL (test code = 7.2 G/DL 2228) ALBUMIN (test code = 2201) 4.4 G/DL CALCULATED GLOBULIN (test 2.8 G/DL code = 2240) CALCULATED A/G RATIO (test 1.6 RATIO code = 2234) BILIRUBIN, TOTAL (test code = 0.3 MG/DL 2206) ALKALINE PHOSPHATASE (test 69 U/L code = 2204) SGOT (AST) (test code = 2218) 19 U/L SGPT (ALT) (test code = 2219) 25 U/L COMPREHENSIVE METABOLIC [id number] 00:00:00 Test Item Value Reference Range Interpretation Comments GLUCOSE (test code = 2217) 180 MG/DL BUN (test code = 2208) 7 MG/DL CREATININE (test code = 2214) 0.7 MG/DL eGFR AMER. (test code 113 ML/MIN/1.73 = 96734) eGFR NON- AMER. (test 94 ML/MIN/1.73 code = 81217) CALCULATED BUN/CREAT (test 10 RATIO code = 2235) SODIUM (test code = 2231) 137 MEQ/L POTASSIUM (test code = 2228) 3.7 MEQ/L CHLORIDE (test code = 2215) 103 MEQ/L CARBON DIOXIDE (test code = 21 MEQ/L 2205) CALCIUM (test code = 2209) 9.5 MG/DL PROTEIN, TOTAL (test code = 7.2 G/DL 2228) ALBUMIN (test code = 2201) 4.4 G/DL CALCULATED GLOBULIN (test 2.8 G/DL code = 2240) CALCULATED A/G RATIO (test 1.6 RATIO code = 2234) BILIRUBIN, TOTAL (test code = 0.3 MG/DL 2206) ALKALINE PHOSPHATASE (test 69 U/L code = 2204) SGOT (AST) (test code = 2218) 19 U/L SGPT (ALT) (test code = 2219) 25 U/L LIPID [id number] 00:00:00 Test Item Value Reference Range Interpretation Comments CHOLESTEROL (test code = 2210) 142 MG/DL TRIGLYCERIDES (test code = 2232) 125 MG/DL HDL CHOLESTEROL (test code = 2220) 31 MG/DL CALCULATED LDL CHOL (test code = 86 MG/DL 2237) RISK RATIO LDL/HDL (test code = 2.77 RATIO 2238) LIPID [id number] 00:00:00 Test Item Value Reference Range Interpretation Comments CHOLESTEROL (test code = 2210) 142 MG/DL TRIGLYCERIDES (test code = 2232) 125 MG/DL HDL CHOLESTEROL (test code = 2220) 31 MG/DL CALCULATED LDL CHOL (test code = 86 MG/DL 2237) RISK RATIO LDL/HDL (test code = 2.77 RATIO 2238) CBC W/AUTO [id number] 00:00:00 Test Item Value Reference Range Interpretation Comments WBC (test code = 1001) 8.3 K/UL RBC (test code = 1002) 4.64 M/UL HEMOGLOBIN (test code = 1003) 13.6 G/DL HEMATOCRIT (test code = 1004) 40.3 % MCV (test code = 1005) 86.9 fL MCH (test code = 1006) 29.3 PG MCHC (test code = 1007) 33.7 G/DL RDW (test code = 1038) 13.8 % NEUTROPHILS (test code = 1008) 64 % LYMPHOCYTES (test code = 1010) 31 % MONOCYTES (test code = 1011) 4 % EOSINOPHILS (test code = 1012) 1 % BASOPHILS (test code = 1013) % PLATELET COUNT (test code = 1015) 251 K/UL CBC W/AUTO [id number] 00:00:00 Test Item Value Reference Range Interpretation Comments WBC (test code = 1001) 8.3 K/UL RBC (test code = 1002) 4.64 M/UL HEMOGLOBIN (test code = 1003) 13.6 G/DL HEMATOCRIT (test code = 1004) 40.3 % MCV (test code = 1005) 86.9 fL MCH (test code = 1006) 29.3 PG MCHC (test code = 1007) 33.7 G/DL RDW (test code = 1038) 13.8 % NEUTROPHILS (test code = 1008) 64 % LYMPHOCYTES (test code = 1010) 31 % MONOCYTES (test code = 1011) 4 % EOSINOPHILS (test code = 1012) 1 % BASOPHILS (test code = 1013) % PLATELET COUNT (test code = 1015) 251 K/UL CBC W/AUTO [id number] 00:00:00 Test Item Value Reference Range Interpretation Comments WBC (test code = 1001) 8.3 K/UL RBC (test code = 1002) 4.64 M/UL HEMOGLOBIN (test code = 1003) 13.6 G/DL HEMATOCRIT (test code = 1004) 40.3 % MCV (test code = 1005) 86.9 fL MCH (test code = 1006) 29.3 PG MCHC (test code = 1007) 33.7 G/DL RDW (test code = 1038) 13.8 % NEUTROPHILS (test code = 1008) 64 % LYMPHOCYTES (test code = 1010) 31 % MONOCYTES (test code = 1011) 4 % EOSINOPHILS (test code = 1012) 1 % BASOPHILS (test code = 1013) % PLATELET COUNT (test code = 1015) 251 K/UL HEMOGLOBIN [id number] 00:00:00 Test Item Value Reference Range Interpretation Comments HEMOGLOBIN A1c (test code = 17159) 5.5 % HEMOGLOBIN [id number] 00:00:00 Test Item Value Reference Range Interpretation Comments HEMOGLOBIN A1c (test code = 39227) 5.5 % HEMOGLOBIN [id number] 00:00:00 Test Item Value Reference Range Interpretation Comments HEMOGLOBIN A1c (test code = 89447) 5.5 % THYROID II PROFILE (T3U, T4, T7, TSH)[id number] 00:00:00 Test Item Value Reference Range Interpretation Comments T3 UPTAKE (test code = 2817) 25.6 % T4 (THYROXINE) (test code = 2819) 7.6 UG/DL CALCULATED T7 (FTI) (test code = 1.95 2820) TSH (test code = 2821) 1.0 UIU/ML THYROID II PROFILE (T3U, T4, T7, TSH)[id number] 00:00:00 Test Item Value Reference Range Interpretation Comments T3 UPTAKE (test code = 2817) 25.6 % T4 (THYROXINE) (test code = 2819) 7.6 UG/DL CALCULATED T7 (FTI) (test code = 1.95 2820) TSH (test code = 2821) 1.0 UIU/ML COMPREHENSIVE METABOLIC [id number] 00:00:00 Test Item Value Reference Range Interpretation Comments GLUCOSE (test code = 2217) 180 MG/DL BUN (test code = 2208) 7 MG/DL CREATININE (test code = 2214) 0.7 MG/DL eGFR AMER. (test code 113 ML/MIN/1.73 = 37366) eGFR NON- AMER. (test 94 ML/MIN/1.73 code = 89517) CALCULATED BUN/CREAT (test 10 RATIO code = 2235) SODIUM (test code = 2231) 137 MEQ/L POTASSIUM (test code = 2228) 3.7 MEQ/L CHLORIDE (test code = 2215) 103 MEQ/L CARBON DIOXIDE (test code = 21 MEQ/L 220) CALCIUM (test code = 2209) 9.5 MG/DL PROTEIN, TOTAL (test code = 7.2 G/DL 222) ALBUMIN (test code = 2201) 4.4 G/DL CALCULATED GLOBULIN (test 2.8 G/DL code = 2240) CALCULATED A/G RATIO (test 1.6 RATIO code = 2234) BILIRUBIN, TOTAL (test code = 0.3 MG/DL 2206) ALKALINE PHOSPHATASE (test 69 U/L code = 2204) SGOT (AST) (test code = 2218) 19 U/L SGPT (ALT) (test code = 2219) 25 U/L COMPREHENSIVE METABOLIC [id number] 00:00:00 Test Item Value Reference Range Interpretation Comments GLUCOSE (test code = 2217) 180 MG/DL BUN (test code = 2208) 7 MG/DL CREATININE (test code = 2214) 0.7 MG/DL eGFR AMER. (test code 113 ML/MIN/1.73 = 64735) eGFR NON- AMER. (test 94 ML/MIN/1.73 code = 66922) CALCULATED BUN/CREAT (test 10 RATIO code = 2235) SODIUM (test code = 2231) 137 MEQ/L POTASSIUM (test code = 2228) 3.7 MEQ/L CHLORIDE (test code = 2215) 103 MEQ/L CARBON DIOXIDE (test code = 21 MEQ/L 2206) CALCIUM (test code = 2209) 9.5 MG/DL PROTEIN, TOTAL (test code = 7.2 G/DL 2228) ALBUMIN (test code = 2201) 4.4 G/DL CALCULATED GLOBULIN (test 2.8 G/DL code = 2240) CALCULATED A/G RATIO (test 1.6 RATIO code = 2234) BILIRUBIN, TOTAL (test code = 0.3 MG/DL 2206) ALKALINE PHOSPHATASE (test 69 U/L code = 2204) SGOT (AST) (test code = 2218) 19 U/L SGPT (ALT) (test code = 2219) 25 U/L LIPID [id number] 00:00:00 Test Item Value Reference Range Interpretation Comments CHOLESTEROL (test code = 2210) 142 MG/DL TRIGLYCERIDES (test code = 2232) 125 MG/DL HDL CHOLESTEROL (test code = 2220) 31 MG/DL CALCULATED LDL CHOL (test code = 86 MG/DL 2237) RISK RATIO LDL/HDL (test code = 2.77 RATIO 2238) LIPID [id number] 00:00:00 Test Item Value Reference Range Interpretation Comments CHOLESTEROL (test code = 2210) 142 MG/DL TRIGLYCERIDES (test code = 2232) 125 MG/DL HDL CHOLESTEROL (test code = 2220) 31 MG/DL CALCULATED LDL CHOL (test code = 86 MG/DL 2237) RISK RATIO LDL/HDL (test code = 2.77 RATIO 2238) CBC W/AUTO [id number] 00:00:00 Test Item Value Reference Range Interpretation Comments WBC (test code = 1001) 8.3 K/UL RBC (test code = 1002) 4.64 M/UL HEMOGLOBIN (test code = 1003) 13.6 G/DL HEMATOCRIT (test code = 1004) 40.3 % MCV (test code = 1005) 86.9 fL MCH (test code = 1006) 29.3 PG MCHC (test code = 1007) 33.7 G/DL RDW (test code = 1038) 13.8 % NEUTROPHILS (test code = 1008) 64 % LYMPHOCYTES (test code = 1010) 31 % MONOCYTES (test code = 1011) 4 % EOSINOPHILS (test code = 1012) 1 % BASOPHILS (test code = 1013) % PLATELET COUNT (test code = 1015) 251 K/UL CBC W/AUTO [id number] 00:00:00 Test Item Value Reference Range Interpretation Comments WBC (test code = 1001) 8.3 K/UL RBC (test code = 1002) 4.64 M/UL HEMOGLOBIN (test code = 1003) 13.6 G/DL HEMATOCRIT (test code = 1004) 40.3 % MCV (test code = 1005) 86.9 fL MCH (test code = 1006) 29.3 PG MCHC (test code = 1007) 33.7 G/DL RDW (test code = 1038) 13.8 % NEUTROPHILS (test code = 1008) 64 % LYMPHOCYTES (test code = 1010) 31 % MONOCYTES (test code = 1011) 4 % EOSINOPHILS (test code = 1012) 1 % BASOPHILS (test code = 1013) % PLATELET COUNT (test code = 1015) 251 K/UL CBC W/AUTO [id number] 00:00:00 Test Item Value Reference Range Interpretation Comments WBC (test code = 1001) 8.3 K/UL RBC (test code = 1002) 4.64 M/UL HEMOGLOBIN (test code = 1003) 13.6 G/DL HEMATOCRIT (test code = 1004) 40.3 % MCV (test code = 1005) 86.9 fL MCH (test code = 1006) 29.3 PG MCHC (test code = 1007) 33.7 G/DL RDW (test code = 1038) 13.8 % NEUTROPHILS (test code = 1008) 64 % LYMPHOCYTES (test code = 1010) 31 % MONOCYTES (test code = 1011) 4 % EOSINOPHILS (test code = 1012) 1 % BASOPHILS (test code = 1013) % PLATELET COUNT (test code = 1015) 251 K/UL HEMOGLOBIN [id number] 00:00:00 Test Item Value Reference Range Interpretation Comments HEMOGLOBIN A1c (test code = 22387) 5.5 % HEMOGLOBIN [id number] 00:00:00 Test Item Value Reference Range Interpretation Comments HEMOGLOBIN A1c (test code = 22006) 5.5 % HEMOGLOBIN [id number] 00:00:00 Test Item Value Reference Range Interpretation Comments HEMOGLOBIN A1c (test code = 19981) 5.5 % THYROID II PROFILE (T3U, T4, T7, TSH)[id number] 00:00:00 Test Item Value Reference Range Interpretation Comments T3 UPTAKE (test code = 2817) 25.6 % T4 (THYROXINE) (test code = 2819) 7.6 UG/DL CALCULATED T7 (FTI) (test code = 1.95 2820) TSH (test code = 2821) 1.0 UIU/ML THYROID II PROFILE (T3U, T4, T7, TSH)2015-02-14 00:00:00 Test Item Value Reference Range Interpretation Comments T3 UPTAKE (test code = 2817) 25.6 % T4 (THYROXINE) (test code = 2819) 7.6 UG/DL CALCULATED T7 (FTI) (test code = 1.95 2820) TSH (test code = 2821) 1.0 UIU/ML
[2022-01-07 11:25] LABS: Absolute Lymphocytes (CBC) 5.3 K/uL (0.7-4.9); Hematocrit 36.1 % (36.0-45.0); Lymphocytes % 39.4 % (15.3-44.8); MCV 83.2 fL (80-100); MPV 7.9 fL (7.6-11.3); RBC Red Blood Cell Count 4.34 M/uL (3.86-4.86)
[2022-01-07 11:31] LABS: Magnesium 2.4 mg/dL (1.8-2.4); Potassium 3.2 mmol/L (3.5-5.1); Troponin High Sensitivity 14.3 pg/mL (<58.9)
--- NOTE | 2022-01-07 14:43 | RAD REPORT ---
EXAM DESCRIPTION: RAD - Chest Single View - 01/07/2022 2:29 pm CLINICAL HISTORY: CHEST PAIN COMPARISON: Chest Single View dated 06/04/2017; Chest Single View dated 02/02/2017; CHEST SINGLE VIEW dated 03/15/2015; CHEST SINGLE VIEW dated 08/01/2008 FINDINGS: Lines: None. Lungs: No evidence of edema or pneumonia. Pleural: No significant pleural effusions or pneumothorax. Cardiac: The heart size is within normal limits. Mediastinum: Within normal limits. Bones: No acute fractures. Other: None IMPRESSION: No acute cardiopulmonary disease.
--- NOTE | 2022-01-07 14:47 | ER ---
Nurse's Notes [facility] Name: Chio Still Age: 46 yrs Sex: Female : 1975 Arrival Date: 01/07/2022 Time: 10:45 Bed 17 Private MD: Diagnosis: Chest pain, unspecified Presentation: 01/07 10:46 Chief complaint: Patient states: Pt was at work walking, started having middle chest jh5 pain. 10 at this time. EMS gave 324 ASA in route. Coronavirus screen: Vaccine status: Patient reports receiving the 2nd dose of the covid vaccine. Client denies travel out of the [place] in the last 14 days. Ebola Screen: Patient negative for fever greater than or equal to 101.5 degrees Fahrenheit, and additional compatible Ebola Virus Disease symptoms Patient denies exposure to infectious person. Patient denies travel to an Ebola-affected area in the 21 days before illness onset. Initial Sepsis Screen: Does the patient meet any 2 criteria? No. Patient's initial sepsis screen is negative. Does the patient have a suspected source of infection? No. Patient's initial sepsis screen is negative. Risk Assessment: Do you want to hurt yourself or someone else? Patient reports no desire to harm self or others. Onset of symptoms was January 07, 2022. 10:46 Method Of Arrival: EMS: [facility] 10:46 Acuity: INDY 3 5 Triage Assessment: 10:54 General: Appears in no apparent distress. obese, well groomed, well developed. General: [facility] Behavior is calm, cooperative, appropriate for age. Pain: Complains of pain in chest. 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 - Social history:: Smoking status: Patient denies any tobacco usage or history of. Screenin:03 Abuse screen: Denies threats or abuse. Denies injuries from another. Nutritional 5 screening: No deficits noted. Tuberculosis screening: No symptoms or risk factors identified. Fall Risk None identified. Vital Signs: 10:46 BP 130 / 80; Pulse 80; Resp 18; Temp 98.6; Pulse Ox 100% ; Weight 74.84 kg; Height 5 jh5 ft. 5 in. (165.10 cm); 10:46 Body Mass Index 27.46 (74.84 kg, 165.10 cm) 5 ED Course: 10:45 Patient arrived in ED. ms3 10:45 Gerardo Benjamin DO is Attending Physician. ms3 10:46 Maryjane Villalta, RN is Primary Nurse. 5 10:54 Triage completed. jh5 10:54 Arm band placed on right wrist. jh5 11:03 Patient has correct armband on for positive identification. jh5 11:03 No provider procedures requiring assistance completed. jh5 11:30 XRAY Chest (1 view) In Process Unspecified. EDMS 14:46 Chandra Calderón MD is Referral Physician. ms3 14:54 IV discontinued, intact, bleeding controlled, No redness/swelling at site. Pressure jh5 dressing applied. Administered Medications: No medications were administered Medication: 11:04 VIS not applicable for this client. 5 Outcome: 14:46 Discharge ordered by . ms3 14:53 Discharged to home ambulatory. jh5 14:53 Condition: good 14:53 Discharge instructions given to patient, Instructed on discharge instructions, follow up and referral plans. safety practices, Demonstrated understanding of instructions, follow-up care. 14:54 Patient left the ED. 5 Signatures: Dispatcher [employer] EDMI Gerardo Benjamin DO DO ms3 Maryjane Villalta, RN RN 5
--- NOTE | 2022-01-07 14:48 | EDPHYS ---
Physician Documentation [facility] Name: Chio Still Age: 46 yrs Sex: Female : 1975 Arrival Date: 01/07/2022 Time: 10:45 Bed 17 Private MD: ED Physician Gerardo Benjamin HPI: 01/07 10:46 This 46 yrs old Female presents to ER via Unassigned with complaints of Chest ms3 pain. 10:46 The patient or guardian reports chest pain that is located primarily in the substernal ms3 area. Onset: just prior to arrival. The pain does not radiate. Associated signs and symptoms: The patient has no apparent associated signs or symptoms. The chest pain is described as a pressure. Duration: The patient or guardian reports a single episode. Modifying factors: The symptoms are alleviated by nothing. the symptoms are aggravated by nothing. Severity of pain: At its worst the pain was moderate in the emergency department the pain has improved is a 3 / 10. EMS care prior to arrival includes: aspirin. 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 - Social history:: Smoking status: Patient denies any tobacco usage or history of. ROS: 10:46 Constitutional: Negative for fever, and chills. Neck: Negative for injury, pain, and ms3 swelling, Respiratory: Negative for shortness of breath, cough, wheezing, and pleuritic chest pain, Abdomen/GI: Negative for abdominal pain, nausea, vomiting, diarrhea, and constipation, MS/Extremity: Negative for injury and deformity, Skin: Negative for injury, rash, and discoloration, Neuro: Negative for headache, weakness, numbness, tingling. 10:46 Cardiovascular: Positive for chest pain. 10:46 All other systems are negative. Exam: 10:47 Constitutional: This is a well developed, well nourished patient who is awake, alert, ms3 and in no acute distress. Head/Face: Normocephalic, atraumatic. Neck: Trachea midline, no cervical lymphadenopathy. Supple, full range of motion without nuchal rigidity, or vertebral point tenderness. No Meningismus. Chest/axilla: Normal chest wall appearance and motion. Nontender with no deformity. Cardiovascular: Regular rate and rhythm with a normal S1 and S2. No gallops, murmurs, or rubs. Normal PMI, no JVD. No pulse deficits. Respiratory: Lungs have equal breath sounds bilaterally, clear to auscultation and percussion. No rales, rhonchi or wheezes noted. No increased work of breathing, no retractions or nasal flaring. Abdomen/GI: Soft, non-tender, with normal bowel sounds. No distension or tympany. No guarding or rebound. No evidence of tenderness throughout. Back: No spinal tenderness. No costovertebral tenderness. Full range of motion. Skin: Warm, dry with normal turgor. Normal color with no rashes, no lesions, and no evidence of cellulitis. MS/ Extremity: Pulses equal, no cyanosis. Neurovascular intact. Full, normal range of motion. Psych: Awake, alert, with orientation to person, place and time. Behavior, mood, and affect are within normal limits. 11:43 ECG was reviewed by the Attending Physician. ms3 Vital Signs: 10:46 BP 130 / 80; Pulse 80; Resp 18; Temp 98.6; Pulse Ox 100% ; Weight 74.84 kg; Height 5 jh5 ft. 5 in. (165.10 cm); 10:46 Body Mass Index 27.46 (74.84 kg, 165.10 cm) 5 MDM: 10:45 Patient medically screened. ms3 10:47 Differential diagnosis: abnormal EKG, acute myocardial infarction, acute pericarditis, ms3 anxiety, coronary artery disease chest wall pain. 11:59 Data interpreted: quality assurance monitor body: rate is 72 beats/min, rhythm is normal sinus rhythm, ms3 regular, with no ectopy, Interpretation: normal rate, normal rhythm. 11:59 ED course: Patient states her pain is a 2/10 at this time. Discussed delta 2-hour ms3 troponin with patient. Patient is in agreement. Will obtain second troponin 2 hours after the original.. 15:13 HEART Score: History: Slightly Suspicious (0), ECG: Normal (0), Age: < or = 45 years ms3 (0), Risk Factors: 1 or 2 risk factors (1), Troponin: < or = 1 x Normal Limit (0), Total Score = 1. The patient was not given aspirin in the Emergency Department. Administered by EMS. Data reviewed: vital signs, nurses notes, lab test result(s), EKG, radiologic studies, and as a result, I will discharge patient. Counseling: I had a detailed discussion with the patient and/or guardian regarding: the historical points, exam findings, and any diagnostic results supporting the discharge/admit diagnosis, lab results, radiology results, the need for outpatient follow up, to return to the emergency department if symptoms worsen or persist or if there are any questions or concerns that arise at home. Special discussion: Based on the patient's history, exam, and Dx evaluation, there is no indication for emergent intervention or inpatient Tx. It is understood by the patient/guardian that if the Sx's persist or worsen they need to return immediately for re-evaluation. 01/07 10:46 Order name: Basic Metabolic Panel; Complete Time: 11:55 ms3 01/07 10:46 Order name: CBC with Diff; Complete Time: 11:55 ms3 01/07 10:46 Order name: Magnesium; Complete Time: 11:55 ms3 01/07 10:46 Order name: Troponin HS; Complete Time: 11:55 ms3 01/07 10:46 Order name: XRAY Chest (1 view); Complete Time: 14:45 ms3 01/07 11:56 Order name: Troponin High Sensitivity: Please draw at 1 pm (2hours after 1st HS Trop); ms3 Complete Time: 13:22 01/07 10:46 Order name: EKG; Complete Time: 10:47 ms3 01/07 10:46 Order name: Cardiac monitoring; Complete Time: 10:56 ms3 01/07 10:46 Order name: EKG - Nurse/Tech; Complete Time: 11:43 ms3 01/07 10:46 Order name: IV Saline Lock; Complete Time: 10:55 ms3 01/07 10:46 Order name: Labs collected and sent; Complete Time: 10:55 ms3 01/07 10:46 Order name: O2 Per Protocol; Complete Time: 10:56 ms3 01/07 10:46 Order name: O2 Sat Monitoring; Complete Time: 10:56 ms3 EC:43 Rate is 71 beats/min. Rhythm is regular. QRS [place] is Normal. GA interval is normal. QRS ms3 interval is normal. QT interval is normal. No Q waves. Clinical impression: Normal ECG. Interpreted by me. Reviewed by me. Administered Medications: No medications were administered Disposition Summary: 01/07/22 14:46 Discharge Ordered Location: Home ms3 Condition: Stable ms3 Diagnosis - Chest pain, unspecified ms3 Followup: ms3 - With: Chandra Calderón MD - When: 2 - 3 days - Reason: Recheck today's complaints Discharge Instructions: - Discharge Summary Sheet ms3 - Nonspecific Chest Pain, Adult ms3 Forms: - Medication Reconciliation Form ms3 - Thank You Letter ms3 - Antibiotic Education ms3 - Prescription Opioid Use ms3 Signatures: Dispatcher [employer] EDMS Gerardo Benjamin DO DO ms3 Maryjane Villalta, RN RN jh5
[2022-01-07 16:04] VITALS: BP 130/80; TEMP 98.6; O2SAT 100
== END 2022-01-07 14:54 | disposition home or self-care (01) ==
LOC: ER 10:41
DX: R07.89 Other chest pain (principal); I10 Essential (primary) hypertension
CPT/HCPCS: 36415; 71045; 80048; 83735; 84484; 85025

== ENCOUNTER 2023-06-10 06:47 | Day surgery (SDC) | payer OTHER ==
--- NOTE | 2023-06-03 15:09 | RAD REPORT ---
EXAM DESCRIPTION: RAD - Chest Pa And Lat (2 Views) - 06/03/2023 3:00 pm CLINICAL HISTORY: Pre op pending meniscectomy/hypertension Chest pain. COMPARISON: <Comparisons> FINDINGS: The lungs are clear. The heart is normal in size. No displaced fractures. IMPRESSION: No acute or concerning finding suspected.
[2023-06-03 15:22] LABS: Absolute Lymphocytes (CBC) 2.6 K/uL (0.7-4.9); Hematocrit 35.6 % (36.0-45.0); Lymphocytes % 27.3 % (15.3-44.8); MCV 80.5 fL (80-100); MPV 8.5 fL (7.6-11.3); Platelets 318 thou/uL (152-406); RBC Red Blood Cell Count 4.43 M/uL (3.86-4.86)
[2023-06-03 15:37] LABS: Potassium 3.4 mEq/L (3.5-5.1)
[2023-06-03 15:46] LABS: Protime INR 0.99
--- NOTE | 2023-06-04 16:28 | EKG ---
Test Date: 2023-06-03 Test Time: 15:51:57 Experimental Box Tester: MERA MEASUREMENT RESULTS: Intervals: Rate: 85 KS: 124 QRSD: 80 QT: 368 QTc: 437 [place]: P: 59 KS: 124 QRS: 68 T: 41 INTERPRETIVE STATEMENTS: Normal sinus rhythm Normal ECG Compared to ECG 01/07/2022 11:43:50 No significant changes Electronically Signed On 06-04-23 16:25:55 FLIGHT NURSE by Chandra Calderón
[2023-06-10] MEDS ORDERED: Ringers Lactate 1,000 ML IV ONE (07:17)
[2023-06-10] MEDS ORDERED: CEFAZOLIN SODIUM 1 GM/VIAL ONE (07:17)
[2023-06-10] MEDS ORDERED: LIDOCAINE 2% MPF 5 ML VIAL ONE (07:24)
[2023-06-10] MEDS ORDERED: propofoL 200 MG/20 ML VIAL IV ONE (07:24)
[2023-06-10] MEDS ORDERED: MIDAZOLAM HCL 2 MG/2 ML INJ ONE (07:24)
[2023-06-10] MEDS ORDERED: FENTANYL CITR 100 MCG/2 ML ONE (07:24)
[2023-06-10] MEDS ORDERED: ONDANSETRON 4 MG/2 ML VIAL ONE (07:24)
[2023-06-10] MEDS ORDERED: BUPIVACAINE 0.25% PF 30 ML VIAL ONE (07:28)
[2023-06-10] MEDS ORDERED: dexAMETHasone 10 MG/ML VIAL ONE (08:07)
[2023-06-10] MEDS ORDERED: EPHEDRINE SULF 50 MG/ML VIAL ONE (08:17)
--- NOTE | 2023-06-10 08:58 | P.BOP ---
Preoperative diagnosis: right knee osteoarthritis, right knee medial meniscus tear Postoperative diagnosis: same, right knee medial plica Primary procedure: right knee arthroscopic medial plica excision Secondary procedure: right knee arthroscopic medial meniscus debridement Identification Printing Machine Setter: NONE,NONE Estimated blood loss: 3 cc Specimen: none Findings: see dictation Anesthesia: General Complications: None Implants: none Fluids & blood products: per anesthesia record; TT: 19 mins @ 300 mmHg Transferred to: Recovery Room Condition: Good
[2023-06-10 09:30] VITALS: O2SAT 98
[2023-06-10 11:02] VITALS: BP 137/79; TEMP 97
--- NOTE | 2023-06-10 12:54 | OP ---
Date of Procedure: 06/10/2023 Surgeon: Arnaud Vega MD Anesthesia: General LMA. Fluids: Per Anesthesia record. Estimated Blood Loss: 3 cc. Complications: None. Implants: None. Tourniquet Time: 19 minutes at 300 mmHg. Indication For Procedure: Chio is a 48-year-old female who presented my clinic with signs, sympt oms, and MRI findings consistent with right knee osteoarthritis as well as a medial meniscus tear. T he patient failed conservative treatment measures including corticosteroid and viscosupplementation i njection. The patient reported continued pain and difficulty with activities of daily living. I dis cussed with the patient at length risks and benefits associated with operative and nonoperative treat ment measures including continued pain given her underlying arthritis. She expressed understanding a nd elected to proceed with operative treatment. Description Of Procedure: After informed consent was obtained, the patient was identified in the pre operative holding area. The right lower extremity was marked. The patient was then brought back to the operating room, transferred to the operating table in supine fashion, placed under general LMA an esthesia. Right lower extremity was then prepped and draped in usual sterile fashion. Time-out was initiated, the correct patient and procedure were confirmed and identified. Received preoperative pr ophylactic antibiotics. Standard anteromedial and anterolateral portals were created. Arthroscope w as brought in via the anterolateral portal and diagnostic arthroscopy was performed. Arthroscope was then first brought in the patellofemoral joint where the patient noted to have grade 3 chondromalaci a changes of the trochlear groove. The patient was also noted to have a medial plica that appeared t o be irritating the medial femoral condyle. Using a radiofrequency ablator as well as arthroscopic s haver, a medial plica excision was performed. The arthroscope was then brought in the medial compart ment. The patient was noted to have some grade 3 chondromalacia changes of the medial femoral condyl e. The patient was noted to have some mild fraying of the medial meniscus and medial meniscus debrid ement was performed using arthroscopic shaver. The arthroscope was brought in the intercondylar notc h where the patient was noted to have intact ACL and PCL, which were stable to probe. The arthroscop e was then brought in the lateral compartment where the patient was noted to have pristine cartilage of the lateral femoral condyle and no significant tear, instability of the lateral meniscus. ArthPIERIS Proteolab were then removed without complication. Wounds were then irrigated thoroughly with normal saline. Skin was approximated using 4-0 Monocryl. Sterile dressings were applied. The bella ent was awakened and transferred to PACU in stable condition. Postoperative Plan: The patient will be weightbearing as tolerated to the right lower extremity. Angella mcmahon will follow up in clinic in 1 week for wound check and dressing change. BRAULIO/MODL Voice ID: [id number] Report ID: [id number]
== END 2023-06-10 10:30 | disposition home or self-care (01) ==
LOC: OR 06:47
PROVIDERS: ATTEND Orthopaedic Surgery Sports Medicine
PROC: 0SBC4ZZ Excision of Right Knee Joint, Percutaneous Endoscopic Approach (ICD-10-PCS; principal; 2023-06-10 08:00)
DX: S83.231A Complex tear of medial meniscus, current injury, right knee, initial encounter (principal); M17.11 Unilateral primary osteoarthritis, right knee; I10 Essential (primary) hypertension
CPT/HCPCS: 93005; 85025; 80048; 36415; 85610; 85730; 71046; 29881; J2704; J2001; J2250; J3010; J1100; J2405; J7120; J0690

== ENCOUNTER 2025-02-10 05:21 | Emergency (ER) | payer OTHER ==
--- OUTSIDE RECORDS SUMMARY | 2025-02-10 05:24 | XMS REPORT | Clinical Summary ---
Author Name Unknown Organization [facility] Address [address] [place] [address] Care Team Providers Care Accounting Systems Analyst Name Role Phone Marcel Blevins MD Unavailable [phone] Alexandra Braden Unavailable Meliton Colorado MD Primary Care Provider [phone] Allergies No known active allergies Medications amLODIPine (NORVASC) 10 mg tablet Take 1 tablet (10 mg) by mouth. Active lisinopril (PRINIVIL,ZESTRI L) 10 mg tablet Take 12.5 mg by mouth. Dose is 12.5mg Active Medical History Medical History Date Comments Hypertension Jan 18 2017 Social History Tobacco Use Types Packs/Day Years Used Date Smoking Tobacco: Never Assessed Comments Unknown Sex and Gender Information Value Date Recorded Sex Assigned at Female 08/15/2021 8:42 PM CDT Legal Sex Female 4:36 PM CDT Gender Identity Female 08/15/2021 8:42 PM CDT Sexual Orientation Not on file Obstetrics History Plan of Treatment Health Maintenance Due Date Last Done Comments COVID-19 Vaccine (2023-2 5 season) 2025 Influenza Vaccine (#1) 2025 Pneumococcal Vaccine Aged Out No long er eligible based on patient's age to complete this topic Insurance [facility] MEDICAID STAR NON SSI [facility] MEDICAID STAR NON SSI Care Teams Accounting Systems Analyst Relationship Specialty Start Date End Date Marcel Blevins MD [address] [place] [phone] PCP - External Referring Orthopedic Surgery 08/14/21 Alexandra Braden [address] [place] [address] PCP - External Primary Care Provider 08/14/21 Meliton Colorado MD [address] [place] [phone] [email or web address] PCP - General Orthopedic Surgery 08/15/21
[2025-02-10] MEDS ORDERED: ACETAMINOPHEN 500 MG TAB ONE (06:10)
[2025-02-10 06:22] LABS: Absolute Lymphocytes (CBC) 2.7 K/uL (0.7-4.9); Hematocrit 42.8 % (36.0-45.0); Hemoglobin 14.3 g/dL (12.0-15.0); MCH 27.2 pg (27.0-35.0); MCHC 33.5 g/dL (32.0-36.0); MCV 81.1 fL (80-100); MPV 9.0 fL (7.6-11.3); Nucleated RBC Absolute Count 0.0 (0-0); Nucleated Red Blood Cells % 0.0 % (0-0); RBC Red Blood Cell Count 5.27 M/uL (3.86-4.86); White Blood Count 8.80 thou/uL (4.3-10.9)
[2025-02-10 06:28] LABS: Anion Gap 9.1 mEq/L (5.0-15.0); BUN Blood Urea Nitrogen 13.0 mg/dL (7-18); Glucose Level 94.0 mg/dL (74-106); Potassium 3.1 mEq/L (3.5-5.1)
--- NOTE | 2025-02-10 07:21 | RAD REPORT ---
EXAM: CT Head Brain Wo Cont HISTORY: HEADACHE COMPARISON: 08/13/2018 TECHNIQUE: Multiple contiguous axial images were obtained for a CT of the brain without contrast. Sag ittal and coronal reformats were performed. One or more of the following dose reduction techniques were used: Automated exposure control, adjus tment of the mA and kV according to patient size, and iterative reconstruction. Unless otherwise specified, incidental findings do not require dedicated imaging follow-up. FINDINGS: No evidence of hydrocephalus, intracranial hemorrhage, or extra-axial fluid collection. The brain is normal in morphology. The calvarium is intact. The visualized paranasal sinuses and mastoid air cells are essentially clear . IMPRESSION: No evidence of acute intracranial abnormality.
--- NOTE | 2025-02-10 07:25 | EDPHYS ---
Physician Documentation [facility] Name: Chio Still Age: 49 yrs Sex: Female : 1975 Arrival Date: 02/10/2025 Time: 05:21 Bed 15 Private MD: ED Physician Zachary Frias HPI: 02/10 06:14 This 49 yrs old Female presents to ER via Ambulatory with complaints of tt7 headache. 06:14 Patient reports that 2 days ago she had sudden onset of a sharp/stabbing pain in her tt7 right temporal region that she describes as a "shooting star". This lasted for approximately 15 seconds and then was followed by much more mild achy/pressure sensation in her right occipital region. The headache has persisted as it is mild pressure for the past 2 days. It has been constant. No exacerbating or alleviating factors. No associated nausea or vomiting. No fever. Past medical history includes hypertension. 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 - Infectious Disease History:: Denies. - Social history:: Smoking status: Patient denies any tobacco usage or history of. Patient/guardian denies using alcohol, street drugs, IV drugs. ROS: 06:16 Constitutional: negative for fever. Cardiovascular: negative for chest pain. tt7 Respiratory: negative for shortness of breath. Abdomen/GI: negative for abdominal pain, nausea, vomiting, diarrhea. MS/Extremity: negative for injury and deformity. Skin: negative for rash. Neuro: negative for focal weakness. Exam: 06:18 Constitutional: vital signs reviewed, well appearing. Head/Face: normocephalic, tt7 atraumatic. Eyes: no conjunctival injection, anicteric sclerae, PERRL, EOMI, no nystagmus. ENT: mucus membranes moist. Neck: trachea midline, no JVD, no nuchal rigidity or meningismus. Cardiovascular: regular rate and rhythm, no lower extremity edema. Respiratory: normal respiratory effort, no accessory muscle use, no audible wheezing. Abdomen/GI: Nondistended. Back: normal ROM. Skin: warm, dry, intact, normal turgor, normal color, no rash. MS/ Extremity: normal ROM of extremities, no gross deformities. Neuro: alert and oriented with appropriate mental status, normal speech, follows commands, no focal neurologic deficits. Psych: appropriate mood and affect. Vital Signs: 05:35 BP 103 / 77; Pulse 87; Resp 19; Temp 97.2; Pulse Ox 100% ; Weight 74.39 kg; Height 5 jj7 ft. 2 in. ; Pain 7/10; 06:47 BP 122 / 82; Pulse 78; Resp 18; Pulse Ox 99% ; Pain 1/10; br2 07:32 BP 106 / 75; Pulse 80; Resp 18; Pulse Ox 98% on R/A; af3 05:35 Body Mass Index 30.00 (74.39 kg, 157.48 cm) jj7 05:35 Pain Scale: Adult jj7 06:47 Pain Scale: Adult br2 MDM: 05:46 Medical Screening Exam initiated tt7 06:20 Differential diagnosis: epidural hematoma, hypertensive headache, hypoglycemia, tt7 hyponatremia, migraine, subdural hematoma, tension headache, uremia. 06:21 Data reviewed: vital signs, nurses notes, lab test result(s), radiologic studies. tt7 06:30 ED course: Well-appearing 49-year-old female with acute onset of headache that has tt7 since persisted for 2 days to a milder degree, vital signs are stable, physical exam is reassuring, workup initiated to include CBC, BMP, CT imaging of the head without contrast. Will treat patient's symptoms with IV droperidol and oral Tylenol. 06:50 ED course: Laboratory studies are reassuring without any acute abnormalities requiring tt7 further evaluation. 07:25 ED course: I independently interpreted the patient's CT imaging of the head without tt7 contrast, on my interpretation there is no acute intracranial abnormality. ED course: I reassessed the patient, her headache is totally resolved, CT imaging is reassuring, no acute abnormalities, after completion of the patient's emergency department evaluation, I do not suspect a life-threatening or disabling process. Patient is medically stable and not in need of emergent medical intervention. I had a detailed discussion with the patient regarding the historical points, exam findings, emergency department evaluation, diagnostic results, and the discharge diagnosis. I instructed the patient on outpatient management of their condition. I discussed the need for outpatient follow-up with a primary care physician. I informed the patient on return precautions, including the need to return to the ED if symptoms do not improve, worsen, or if there are any questions or concerns that arise at home. The patient was discharged in stable condition. 02/10 06:01 Order name: CBC with Diff; Complete Time: 06:32 tt7 02/10 06:01 Order name: BMP; Complete Time: 06:32 tt7 02/10 06:01 Order name: CT Head Brain wo Cont; Complete Time: 07:22 tt7 Administered Medications: 06:14 Drug: Acetaminophen PO 1000 mg PO once Route: PO; br2 06:44 Follow up: Response: Pain is decreased br2 06:15 Drug: Droperidol IVP 1.25 mg IVP once Route: IVP; Site: right antecubital; br2 06:44 Follow up: Response: Pain is decreased br2 Disposition Summary: 02/10/25 07:24 Discharge Ordered Notes: Location: Home tt7 Problem: new tt7 Symptoms: are resolved tt7 Condition: Stable tt7 Diagnosis - Headache tt7 Followup: tt7 - With: Emergency Department - When: As needed - Reason: Followup: tt7 - With: Private Physician - When: 2 - 3 days - Reason: Recheck today's complaints, Re-evaluation by your physician Discharge Instructions: - Discharge Summary Sheet tt7 - Cervicogenic Headache tt7 - General Headache Without Cause, [id number] tt7 Forms: - Medication Reconciliation Form tt7 - Antibiotic Education tt7 - Prescription Opioid Use tt7 - Patient Portal Instructions tt7 - Leadership Thank You Letter tt7 Signatures: Dispatcher [employer] Mark Mcfarlane RN RN jj7 Nely Saavedra RN RN br2 Zachary Frias DO DO tt7 Corrections: (The following items were deleted from the chart) 06:02 06:02 CBC+H.LAB.BRZ ordered. EDMS EDMS 06:02 06:02 BASIC METABOLIC PANEL+C.LAB.BRZ ordered. EDMS EDMS 06:02 06:02 Head Brain Wo Cont+CT.RAD.BRZ ordered. EDMS EDMS
--- NOTE | 2025-02-10 07:25 | ER ---
Nurse's Notes [facility] Name: Chio Still Age: 49 yrs Sex: Female : 1975 Arrival Date: 02/10/2025 Time: 05:21 Bed 15 Private MD: Diagnosis: Headache Presentation: 02/10 05:35 Chief complaint: Patient states: HEADACHE X2 DAYS. Coronavirus screen: [facility] not indicate any symptoms associated with coronavirus-19. Ebola Screen: No symptoms or risks identified at this time. Initial Sepsis Screen: Does the patient meet any 2 criteria? No. Patient's initial sepsis screen is negative. Does the patient have a suspected source of infection? No. Patient's initial sepsis screen is negative. Risk Assessment: Do you want to hurt yourself or someone else? Patient reports no desire to harm self or others. Note TOOK TYLENOL 1 GM \\[id number]\\[id number]. Onset of symptoms was February 09, 2024. 05:35 Method Of Arrival: [facility] 05:35 Acuity: INDY 3 jj7 Triage Assessment: 05:35 Headache History: Denies prior headaches. General: Appears in no apparent distress. jj7 uncomfortable, Behavior is calm, cooperative, appropriate for age. Pain: Complains of pain in occipital area and base of the skull Pain currently is 7 out of 10 on a pain scale. Pain began 2-3 days ago. Neuro: Reports headache occipital area, that is the "worst ever". 05:58 Pain:. br2 07:32 Pain: Also complains of. af3 [employer]HOE: 05:35 LMP N/A - control method, Not jj7 Historical: - Allergies: 06:31 No Known Allergies; jj7 - PMHx: 05:58 Hypertension; br2 - Immunization history:: Adult Immunizations up to date. - Infectious Disease History:: Denies. - Social history:: Smoking status: Patient denies any tobacco usage or history of. Patient/guardian denies using alcohol, street drugs, IV drugs. Screenin:[address] [facility] ED Fall Risk Assessment (Adult) History of falling in the last 3 months, j7 including since admission No falls in past 3 months (0 pts) Confusion or Disorientation No (0 pts) Intoxicated or Sedated No (0 pts) Impaired Gait No (0 pts) Mobility Assist Device Used No (0 pt) Altered Elimination No (0 pt) Score/Fall Risk Level 0 - 2 = Low Risk Oriented to surroundings, Maintained a safe environment, Educated pt \\T\\ family on fall prevention, incl call for assistance when getting out of bed, Assessed \\T\\ reinforced patient's understanding of fall precautions. Abuse screen: Denies threats or abuse. Nutritional screening: No deficits noted. Tuberculosis screening: No symptoms or risk factors identified. Assessment: 05:35 Reassessment: Patient and/or family updated on plan of care and expected duration. Pain br2 level reassessed. Patient is alert, oriented x 3, equal unlabored respirations, skin warm/dry/pink. General: Appears in no apparent distress. uncomfortable, Behavior is calm, cooperative. Pain: Complains of pain in occipital area and base of the skull Pain does not radiate. Pain currently is 7 out of 10 on a pain scale. Neuro: Level of Consciousness is awake, alert, obeys commands, Oriented to person, place, time, Reports dizziness. Cardiovascular: Denies chest pain. Respiratory: Airway is patent Respiratory effort is even, unlabored, Respiratory pattern is regular, symmetrical. GI: No signs and/or symptoms were reported involving the gastrointestinal system. : No signs and/or symptoms were reported regarding the genitourinary system. EENT: No signs and/or symptoms were reported regarding the EENT system. Derm: No signs and/or symptoms reported regarding the dermatologic system. Musculoskeletal: No signs and/or symptoms reported regarding the musculoskeletal system. 06:44 Reassessment: Patient and/or family updated on plan of care and expected duration. Pain br2 level reassessed. Patient is alert, oriented x 3, equal unlabored respirations, skin warm/dry/pink. Patient states feeling better. Patient states symptoms have improved. 07:31 Reassessment: Patient appears in no apparent distress at this time. No changes from af3 previously documented assessment. Patient and/or family updated on plan of care and expected duration. Pain level reassessed. Patient is alert, oriented x 3, equal unlabored respirations, skin warm/dry/pink. Vital Signs: 05:35 BP 103 / 77; Pulse 87; Resp 19; Temp 97.2; Pulse Ox 100% ; Weight 74.39 kg; Height 5 j ft. 2 in. ; Pain 7/10; 06:47 BP 122 / 82; Pulse 78; Resp 18; Pulse Ox 99% ; Pain 1/10; br2 07:32 BP 106 / 75; Pulse 80; Resp 18; Pulse Ox 98% on R/A; af3 05:35 Body Mass Index 30.00 (74.39 kg, 157.48 cm) jj7 05:35 Pain Scale: Adult jj7 06:47 Pain Scale: Adult br2 ED Course: 05:25 Patient arrived in ED. gm2 05:26 Zachary Frias DO is Attending Physician. tt7 05:35 Arm band placed on right wrist. Patient placed in an exam room, on a stretcher. jj7 05:45 Triage completed. jj7 05:47 Patient has correct armband on for positive identification. Bed in low position. Call j light in reach. Client placed on continuous cardiac and pulse oximetry monitoring. NIBP monitoring applied. Pulse ox on. NIBP on. 05:56 Inserted saline lock: 20 gauge in right antecubital area, using aseptic technique. br2 Blood collected. Flushed with 10 mL NS. 06:15 BMP Sent. br2 06:15 CBC with Diff Sent. br2 06:27 CT Head Brain wo Cont In Process Unspecified. EDMS 06:47 Nely Saavedra, RN is Primary Nurse. br2 07:31 No provider procedures requiring assistance completed. IV discontinued, intact, af3 bleeding controlled, No redness/swelling at site. Pressure dressing applied. Administered Medications: 06:14 Drug: Acetaminophen PO 1000 mg PO once Route: PO; br2 06:44 Follow up: Response: Pain is decreased br2 06:15 Drug: Droperidol IVP 1.25 mg IVP once Route: IVP; Site: right antecubital; br2 06:44 Follow up: Response: Pain is decreased br2 Medication: 07:32 VIS not applicable for this client. af3 Outcome: 07:24 Discharge ordered by . tt7 07:32 Discharged to home ambulatory, af3 07:32 Condition: stable 07:32 Discharge instructions given to patient, Instructed on discharge instructions, follow up and referral plans. Demonstrated understanding of instructions, follow-up care, 07:32 Patient left the ED. af3 Signatures: Dispatcher [employer] Mark Mcfarlane RN RN jj7 Larisa Gogn gm2 Nely Saavedra RN RN br2 Tanya Uriarte RN RN af3 Zachary Frias DO DO tt7
[2025-02-10 07:41] VITALS: TEMP 97.2
[2025-02-10 07:43] VITALS: BP 106/75; O2SAT 98
== END 2025-02-10 07:32 | disposition home or self-care (01) ==
LOC: ER 05:21
DX: R51.9 Headache, unspecified (principal)
CPT/HCPCS: 85025; 80048; 36415; 70450; 96374; 99284; J1790